=== PATIENT | female | born 1955 | race Caucasian/White ===

== ENCOUNTER 2022-03-12 11:53 | Observation (INO) | payer MEDICARE, BC, SELFPAY ==
[2022-03-12] VITALS (10 sets, daily range): BP systolic 133–158; BP diastolic 71–91; PULSE 72–92; RESP 14–18; TEMP 36.3–36.4; O2SAT 95–100; BMI 19.1; BMI 19.0
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
[2022-03-12] MEDS: LORazepam 2 MG/ML inj 0.5 MG IVP ×2 (13:12→15:39)
[2022-03-12 13:27] LABS: Basophils Absolute Auto 0.02 K/uL (0.00-0.30); Basophils Percent Auto 0.3 % (0.0-3.0); Eosinophils Absolute Auto 0.04 K/uL (0.00-0.50); Eosinophils Percent Auto 0.6 % (0.0-7.0); Hematocrit 37.5 % (33.0-51.0); Immature Granulocytes Abs Auto 0.02 K/uL (0.00-0.30); Lymphocytes Absolute Auto 1.67 K/uL (0.90-2.90); Lymphocytes Percent Auto 25.2 % (20-44); Mean Corpuscular HGB Conc 35 gm/dL (32-36); Mean Corpuscular Hemoglobin 30 pg (26-34); Mean Corpuscular Volume 86 fL (80-100); Monocytes Percent Auto 6.6 % (0.0-11.0); Neutrophils Absolute Auto 4.45 K/uL (1.7-7.0); Platelet Count* 359 K/uL (140-440); RDW Coefficient of Variation % 11.6 % (11.5-15.5); Red Blood Count 4.34 m/uL (4.00-5.20); White Blood Count* 6.64 K/uL (4.50-11.00)
[2022-03-12 13:35] LABS: Slide Review Reflex No
[2022-03-12 13:41] LABS: Albumin* 4.2 g/dL (3.3-5.0); Chloride* 87 mmol/L (96-114)
[2022-03-12 13:42] LABS: Potassium* 3.8 mmol/L (3.6-5.1)
[2022-03-12 13:44] LABS: Bilirubin Total* 0.3 mg/dL (0.1-1.5)
[2022-03-12 13:45] LABS: Alanine Aminotransferase* 13 U/L (4-35); Alkaline Phosphatase* 70 U/L (40-150); Aspartate Amino Transferase* 23 U/L (12-35); Blood Urea Nitrogen* 9 mg/dL (7-30); Carbon Dioxide* 25 mmol/L (20-32); Glucose* 96 mg/dL (60-115); Magnesium* 1.6 mg/dL (1.5-2.6)
[2022-03-12 13:58] LABS: C Reactive Protein* < 0.5 mg/dL (0.5-1.0); Sodium* 121 mmol/L (135-149); Troponin I* < 0.01 ng/mL (0.01-0.04)
--- NOTE | 2022-03-12 14:00 | ED.NURSE ---
Lab called with a critical Na 121. Informed Dr. Hartmann of this result.
[2022-03-12 14:02] LABS: Vitamin D 25 Hydroxy* 32 ng/mL (30-80)
[2022-03-12 14:28] LABS: Calcium* 8.7 mg/dL (8.4-10.6); Creatinine* 0.8 mg/dL (0.5-1.5); Est. Creatinine Clearance* 45.57; Estimated Glomerular Filt Rate 81 ml/min; Total Protein* 7.1 g/dL (6.0-8.3)
[2022-03-12] MEDS: 0.9 % SODIUM CHLORIDE 500 ML 500 ML IV (14:37)
[2022-03-12 15:22] LABS: Troponin I* < 0.01 ng/mL (0.01-0.04)
[2022-03-12] MEDS: KETOROLAC 15 MG/ML inj IVP (15:40)
[2022-03-12 15:56] LABS: SARS PCR* Negative SARS-CoV-2 (Negative)
[2022-03-12] MEDS: MAGNESIUM SULFATE 2 GM/50 ML PIGGYBACK IVPB (16:14)
[2022-03-12 17:02] LABS: Amylase* 113 U/L (18-89); Lipase* 123 U/L (23-300)
[2022-03-12 17:14] LABS: C Reactive Protein* < 0.5 mg/dL (0.5-1.0)
--- NOTE | 2022-03-12 17:20 | W.PC.EDHO ---
Primary Language: Preferred Language: Orientation Status: [X] Alert & Oriented [] Slight Confusion [] Known Dx Dementia Transfers By: [X] Assist of 1 [] Assist of 2 [] Lift Active Medications Discontinued Medications Generic Name Dose Route Start Last Admin Trade Name Dina PRN Reason Stop Dose Admin Acetaminophen 650 mg 03/12/22 14:15 03/12/22 14:50 Acetaminophen 325 Mg Tablet PO 03/12/22 14:16 Not Given ONCE ONE Sodium Chloride 500 mls @ 500 mls/hr 03/12/22 14:12 03/12/22 15:50 0.9 % Sodium Chloride 500 Ml IV 03/12/22 15:11 Infused .Q1H ONE Infusion Ketorolac Tromethamine 15 mg 03/12/22 15:14 03/12/22 15:40 Ketorolac 15 Mg/Ml Inj IVP 03/12/22 15:15 15 mg ONCE ONE Administration Lorazepam 0.5 mg 03/12/22 12:36 03/12/22 13:12 Lorazepam 2 Mg/Ml Inj IVP 03/12/22 12:37 0.5 mg ONCE ONE Administration Lorazepam 0.5 mg 03/12/22 14:51 03/12/22 15:39 Lorazepam 2 Mg/Ml Inj IVP 03/12/22 14:52 0.5 mg ONCE ONE Administration Magnesium Sulfate 2 gm 03/12/22 15:50 03/12/22 16:14 Magnesium Sulfate 2 Gm/50 Ml Piggyback IVPB 03/12/22 15:51 2 gm ONCE ONE Administration Description of Symptoms ED Triage Present Problem patient is having tightness in the chest that Description started yesterday and then went away returned today at 0400 feeling worse and the heart as if 2 x's the size. feeling lightheaded and nauseated. unable to relax as has pain in the lower abdomen and pelivic area was massaged by PT. was dx with UTI taking abo on Wednesday and Wednesday ED Triage Date of Onset of 03/12/22 Symptoms Female History Patient No Pain Pain Description [Lower Tightness Abdomen] Pain Intensity [Lower Abdomen] 8 Pain Intensity 6 Pain Scale Used [Lower Abdomen Numeric (1 - 10) ] Pain Scale Used Numeric (1 - 10) Oxygen Administration Pulse Oximetry 97 Pulse Oximetry 97 Pulse Oximetry 98 Oxygen Delivery Method Room Air Oxygen Delivery Method Room Air Oxygen Delivery Method Room Air Cardiac Monitoring EKG Method 12 Lead
--- NOTE | 2022-03-12 17:59 | ED.NURSE ---
Patient transfered to med/surg unit. Magnesium infusing at time of transfer.
--- NOTE | 2022-03-12 18:14 | CRLHL7_ITS ---
For Patients: As a result of the Century Cures Act, medical imaging exams and procedure reports are released immediately into your electronic medical record. You may view this report before your referring provider. If you have questions, please contact your health care provider. INDICATION: Chest pain TECHNIQUE: Single view chest. FINDINGS: The lungs are clear. The heart, mediastinum and pulmonary vessels are of normal size. There is no evidence of pleural disease. IMPRESSION: Negative chest. Dictated by Sherly Reyna MD @ 03/12/2022 6:48:00 PM (Electronically Signed)
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
[2022-03-12 18:56] LABS: Chloride* 91 mmol/L (96-114); Potassium* 3.7 mmol/L (3.6-5.1); Sodium* 126 mmol/L (135-149)
[2022-03-12 18:59] LABS: Blood Urea Nitrogen* 8 mg/dL (7-30); Calcium* 8.8 mg/dL (8.4-10.6); Carbon Dioxide* 27 mmol/L (20-32); Creatinine* 0.7 mg/dL (0.5-1.5); Est. Creatinine Clearance* 45.22; Estimated Glomerular Filt Rate 95 ml/min; Glucose* 119 mg/dL (60-115)
[2022-03-12] MEDS: IBUPROFEN 200 MG TABLET 400 MG PO (20:27)
[2022-03-12] MEDS: LORazepam 0.5 MG TABLET PO (20:29)
[2022-03-12] MEDS: diphenhydrAMINE 25 MG CAPSULE PO (20:30)
--- NOTE | 2022-03-12 21:59 | PC.NURSE ---
Pt came to floor with Chronic Abdominal pain in the LLQ. Controlled with Ice, Position, and Ibuprofen. No N/V. Pt IND in room. Pt has very strict home diet. Home meds in Bin. Allergic to Red dye. Refused Hospital Benadryl. Order changed to use home Benadryl.
[2022-03-13 03:00] VITALS: BP 118/73; PULSE 70; RESP 16; TEMP 36.4; O2SAT 100
[2022-03-13 06:36] LABS: Basophils Absolute Auto 0.03 K/uL (0.00-0.30); Basophils Percent Auto 0.5 % (0.0-3.0); Eosinophils Absolute Auto 0.11 K/uL (0.00-0.50); Eosinophils Percent Auto 1.7 % (0.0-7.0); Hematocrit 37.2 % (33.0-51.0); Hemoglobin* 12.9 gm/dL (12.0-16.0); Immature Granulocytes Abs Auto 0.04 K/uL (0.00-0.30); Lymphocytes Absolute Auto 2.19 K/uL (0.90-2.90); Lymphocytes Percent Auto 34.6 % (20-44); Mean Corpuscular HGB Conc 35 gm/dL (32-36); Mean Corpuscular Hemoglobin 30 pg (26-34); Mean Corpuscular Volume 87 fL (80-100); Monocytes Percent Auto 8.8 % (0.0-11.0); Neutrophils Percent Auto 53.8 % (42.0-72.0); Platelet Count* 384 K/uL (140-440); RDW Coefficient of Variation % 11.9 % (11.5-15.5); Red Blood Count 4.28 m/uL (4.00-5.20); White Blood Count* 6.33 K/uL (4.50-11.00)
[2022-03-13 06:38] LABS: Slide Review Reflex No
--- NOTE | 2022-03-13 06:51 | PC.NURSE ---
Alert and oriented x4. Vitals stable and on RA. Denies pain. Calm and pleasant. No lab results back yet. No concerns overnight
[2022-03-13 07:00] VITALS: BP 152/100; PULSE 93; RESP 14; TEMP 36.6; O2SAT 100
[2022-03-13 07:00] LABS: Chloride* 96 mmol/L (96-114); Sodium* 129 mmol/L (135-149)
[2022-03-13 07:03] LABS: Blood Urea Nitrogen* 7 mg/dL (7-30); Carbon Dioxide* 26 mmol/L (20-32); Creatinine* 0.8 mg/dL (0.5-1.5); Est. Creatinine Clearance* 45.22; Estimated Glomerular Filt Rate 81 ml/min
[2022-03-13 07:04] LABS: Calcium* 8.6 mg/dL (8.4-10.6); Glucose* 98 mg/dL (60-115); Magnesium* 2.1 mg/dL (1.5-2.6)
--- NOTE | 2022-03-13 07:44 | P.DS_ITS ---
DS: Providers Provider Date Seen: 03/13/22 Date of admission: 03/12/22 16:50 Primary care physician: Not a Local Provider Admitting Clinician: Milton Anderson MD Attending Physician on discharge: Alejandrina Rose MD Date of Discharge: 03/13/22 DS: Diagnosis Discharge Diagnosis (1) Hyponatremia: Status: Acute (2) Anxiety: Status: Chronic DS: Summary Hospital Course Hospital Course: 66-year-old female, presented to the emergency room on 03/12 for chest pain. Her chest pain entirely resolved throughout stay; she was found to have hyponatremia with a sodium of 121 in the emergency room. During hospitalization, her sodium came up to 129 and she felt markedly improved, back to baseline. She endorses having anxiety about trying to drink sufficient water throughout the day for her histamine predominance, is amenable to decreasing fluid intake to prevent a recurrence of hyponatremia. She will continue follow-up as an outpatient with Psychiatry for her anxiety; has been looking for new PCP since her PCP has retired, would like to see Dr. Monik Cornejo at the [facility]. Status at Discharge Functional status at discharge: independent ambulation Overall status at discharge: patient is back to baseline Time Spent with Patient Time attestation: Total time spent providing and/or coordinating discharge services: Time spent: Greater than 30 minutes Specific discharge activities: Education regarding diagnoses, discharge appointments, and coordination of care Exam Narrative: Exam Narrative: GEN: Alert and oriented, answering questions appropriately HEENT: Normal external ears, EOMIs bilaterally, no scleral icterus CV: RRR, No concerning murmurs, rubs, or gallops R: LCTA bilaterally without concerning wheezing, rales, or rhonchi Ext: wwp, no concerning edema Skin: No concerning skin lesions or rashes on exposed skin Neuro: Nonfocal Psych: Appropriate Const: Vital Signs, click to edit/add: Vital Signs - 24 hr 03/12/22 11:58 03/12/22 12:58 03/12/22 14:45 Temperature 97.6 F Pulse Rate [Left P ulse Oximeter] 92 72 82 Pulse Rate [Left R adial] Respiratory Rate 18 14 14 Blood Pressure [Le ft Arm] Blood Pressure [Le ft Upper Arm] 158/91 H 157/82 H 155/81 H Pulse Oximetry 98 97 97 Oxygen Delivery Me thod Room Air Room Air Room Air 03/12/22 18:06 03/12/22 18:18 03/12/22 18:45 Temperature 97.4 F L 97.4 F L Pulse Rate [Left P ulse Oximeter] Pulse Rate [Left R adial] 82 82 Respiratory Rate 16 16 16 Blood Pressure [Le ft Arm] 152/89 H 152/89 H Blood Pressure [Le ft Upper Arm] Pulse Oximetry 100 100 100 Oxygen Delivery Nh thod Room Air Room Air Room Air 03/12/22 18:51 03/12/22 18:52 03/12/22 20:27 Temperature 97.4 F L 97.4 F L 97.4 F L Pulse Rate [Left P ulse Oximeter] Pulse Rate [Left R adial] Respiratory Rate 16 Blood Pressure [Le ft Arm] 152/89 H Blood Pressure [Le ft Upper Arm] Pulse Oximetry 100 Oxygen Delivery Nh thod Room Air 03/12/22 23:00 03/12/22 23:00 03/13/22 03:00 Temperature 97.4 F L 97.6 F Pulse Rate [Left P ulse Oximeter] Pulse Rate [Left R adial] 70 Respiratory Rate 16 16 16 Blood Pressure [Le ft Arm] 133/71 118/73 Blood Pressure [Le ft Upper Arm] Pulse Oximetry 95 100 Oxygen Delivery Nh thod Room Air Room Air DS: Data Data Completed and Pending Labs on day of discharge: Labs from last 24 hours 03/13/22 03/13/22 03/13/22 06:14 06:14 06:14 WBC 6.33 RBC 4.28 Hgb 12.9 Hct 37.2 MCV 87 MCH 30 MCHC 35 RDW Coeff of [place] 11.9 Plt Count 384 Neut % (Auto) 53.8 Lymph % (Auto) 34.6 [place] % (Auto) 8.8 Eos % (Auto) 1.7 Baso % (Auto) 0.5 Neut # (Auto) 3.40 Lymph # (Auto) 2.19 [place] # (Auto) 0.60 Eos # (Auto) 0.11 Baso # (Auto) 0.03 Abs Immat Gran (auto) 0.04 Sodium 129 L Potassium 4.0 Chloride 96 Carbon Dioxide 26 BUN 7 Creatinine 0.8 Estimated Creat Clear 45.22 Estimated GFR 81 Glucose 98 Calcium 8.6 Magnesium 2.1 Total Bilirubin AST ALT Alkaline Phosphatase Troponin I C-Reactive Protein Total Protein Albumin Amylase Lipase 25-OH Vitamin D Total TSH 1.260 SARS-CoV-2 (PCR) 03/12/22 03/12/22 03/12/22 18:32 14:40 14:40 WBC RBC Hgb Hct MCV MCH MCHC RDW Coeff of [place] Plt Count Neut % (Auto) Lymph % (Auto) [place] % (Auto) Eos % (Auto) Baso % (Auto) Neut # (Auto) Lymph # (Auto) [place] # (Auto) Eos # (Auto) Baso # (Auto) Abs Immat Gran (auto) Sodium 126 L Potassium 3.7 Chloride 91 L Carbon Dioxide 27 BUN 8 Creatinine 0.7 Estimated Creat Clear 45.22 Estimated GFR 95 Glucose 119 H Calcium 8.8 Magnesium Total Bilirubin AST ALT Alkaline Phosphatase Troponin I < 0.01 L C-Reactive Protein < 0.5 L Total Protein Albumin Amylase 113 H Lipase 123 25-OH Vitamin D Total TSH SARS-CoV-2 (PCR) Negative SARS-CoV-2 03/12/22 03/12/22 03/12/22 13:10 13:10 13:10 WBC 6.64 RBC 4.34 Hgb 13.0 Hct 37.5 MCV 86 MCH 30 MCHC 35 RDW Coeff of [place] 11.6 Plt Count 359 Neut % (Auto) 67.0 Lymph % (Auto) 25.2 [place] % (Auto) 6.6 Eos % (Auto) 0.6 Baso % (Auto) 0.3 Neut # (Auto) 4.45 Lymph # (Auto) 1.67 [place] # (Auto) 0.40 Eos # (Auto) 0.04 Baso # (Auto) 0.02 Abs Immat Gran (auto) 0.02 Sodium 121 L* Potassium 3.8 Chloride 87 L Carbon Dioxide 25 BUN 9 Creatinine 0.8 Estimated Creat Clear 45.57 Estimated GFR 81 Glucose 96 Calcium 8.7 Magnesium 1.6 Total Bilirubin 0.3 AST 23 ALT 13 Alkaline Phosphatase 70 Troponin I < 0.01 L C-Reactive Protein < 0.5 L Total Protein 7.1 Albumin 4.2 Amylase Lipase 25-OH Vitamin D Total 32 TSH SARS-CoV-2 (PCR) Discharge Plan Discharge Disposition: Home, Self-Care Date of Admission: 03/12/22 16:50 Attending Provider on Discharge: Alejandrina Rose Primary Care Provider: Provider,Not a Local Condition: Improved Anticipated Discharge Date/Time: 03/13/22 07:30 Discharge Medications: Continued diphenhydramine HCl [Allergy (diphenhydramine)] 25 mg tablet 25 mg PO QID PRN lorazepam 0.5 mg tablet 0.5 mg PO TID PRN Label Comments: TAKE ONE TABLET BY MOUTH (0.5MG) BY MOUTH 3 TIMES DAILY IF NEEDED FOR ANXIETY. levothyroxine 112 mcg tablet 112 mcg PO DAILY Label Comments: TAKE 1 TABLET (112 MCG) BY MOUTH BEFORE BREAKFAST. levocetirizine [24HR Allergy Relief] 5 mg tablet 5 mg PO TID cephalexin 500 mg tablet 500 mg PO BID Label Comments: TAKE 1 TABLET BY MOUTH IN THE MORNING AND 1 TABLET IN THE EVENING FOR 7 DAYS. ibuprofen [Advil] 200 mg tablet 400 mg PO Q6-8H PRN Discharge Orders: Discharge Order (Routine); Ordered 03/13/22 Ordered By: Alejandrina Rose Patient Education: Hyponatremia (DC) Activity Restrictions/Additional Instructions: Limit your water intake to 1800mL per day. No need to limit salt in your diet. See Dr. Cornejo for Primary Care. Activity Level: No Restrictions Discharge Diet: Regular Follow Up Appointments: Enrrique Haas MD [Staff Physician] - Provider,Not a Local [Primary Care Provider] - (Please make an establish care appt with Dr. Cornejo next week.) Forms: [employer] Info Instructions
[2022-03-13 08:24] LABS: Troponin I* < 0.01 ng/mL (0.01-0.04)
[2022-03-13] MEDS: LEVOTHYROXINE 112 MCG TABLET PO (09:06)
[2022-03-13] MEDS: LORazepam 0.5 MG TABLET PO (09:06)
[2022-03-13 09:07] VITALS: BP 118/73; PULSE 70; RESP 16; TEMP 36.4
[2022-03-13] MEDS: diphenhydrAMINE 25 MG CAPSULE PO (09:08)
[2022-03-13] MEDS: IBUPROFEN 200 MG TABLET 400 MG PO (09:11)
[2022-03-13 10:51] VITALS: PULSE 70
--- NOTE | 2022-03-13 10:52 | PC.NURSE ---
Discharge: Patient pleasant, cooperative, and anxious. Patient anxious about not receiving meds at her usual time she takes them at home. Patient is vitally stable, lungs clear, BS WNL, IV removed catheter intact. Patient is independent in room, and did report some pelvic pain, rating it 3/10, motrin given. Patient signed belongings sheet and discharge form. Patient's home meds returned. Patient left the floor by foot at 0949 with her belongings.
== END 2022-03-13 09:49 | disposition home or self-care (01) ==
LOC: ED 16:50 → MEDSURG 16:51
PROVIDERS: Family Medicine; Admitting Provider Internal Medicine; Emergency Provider Family Medicine; PCP Internal Medicine; Visit Provider Internal Medicine
DX: E87.1 Hypo-osmolality and hyponatremia (principal); F41.9 Anxiety disorder, unspecified; E83.42 Hypomagnesemia; R10.2 Pelvic and perineal pain; R74.8 Abnormal levels of other serum enzymes; G89.29 Other chronic pain; D89.40 Mast cell activation, unspecified; E03.9 Hypothyroidism, unspecified; J30.2 Other seasonal allergic rhinitis; R53.83 Other fatigue; M99.05 Segmental and somatic dysfunction of pelvic region; Z87.19 Personal history of other diseases of the digestive system; Z62.819 Personal history of unspecified abuse in childhood; Z87.898 Personal history of other specified conditions
CPT/HCPCS: 36415; 71045; 80048; 80053; 81001; 82150; 82306; 83690; 83735; 84295; 84443; 84484; 85025; 86140; 87635; 93005; 96361; 96374; 96375; 96376; 99285; A9270; G0378; G0379; J1885; J2060; J3475; J7120

== ENCOUNTER 2022-04-21 09:57 | Outpatient (RCR) | payer MEDICARE, BC, SELFPAY | END 2022-11-17 16:19 | disposition home or self-care (01) | PROVIDERS: PCP Internal Medicine; Visit Provider Physician Assistant | DX: H81.10 Benign paroxysmal vertigo, unspecified ear (principal); Z51.89 Encounter for other specified aftercare | CPT/HCPCS: 97110; 97162 ==

== ENCOUNTER 2022-06-16 09:00 | Outpatient (RCR) | payer MEDICARE, BC, SELFPAY | END 2022-09-02 10:00 | disposition home or self-care (01) | PROVIDERS: PCP Family Medicine; Visit Provider Nurse Practitioner Adult Health | DX: K58.9 Irritable bowel syndrome, unspecified (principal); Z51.89 Encounter for other specified aftercare | CPT/HCPCS: 97110; 97112; 97140; 97162; 97535 ==

== ENCOUNTER 2022-07-02 11:09 | Emergency (ER) | payer MEDICARE, BC, SELFPAY ==
[2022-07-02 11:19] VITALS: BP 156/92; PULSE 90; RESP 18; TEMP 37.2; O2SAT 97; BMI 19.6
--- NOTE | 2022-07-02 11:41 | CRLHL7_ITS ---
For Patients: As a result of the Century Cures Act, medical imaging exams and procedure reports are released immediately into your electronic medical record. You may view this report before your referring provider. If you have questions, please contact your health care provider. INDICATION: Headache, high blood pressure TECHNIQUE: Noncontrast axial CT of the head. Coronal and sagittal reformats. Bone and soft tissue algorithms. COMPARISON: No relevant comparison studies available at this institution. FINDINGS: The ventricles and cortical sulci are unremarkable. No midline shift or mass effect. No acute intracranial hemorrhage or extra-axial fluid collection. [place]-white matter differentiation is grossly maintained. White matter attenuation is within normal limits. Intracranial vessels are unremarkable for technique. Midline structures are unremarkable. Bony calvarium appears grossly intact. Paranasal sinuses and mastoid air cells are clear. Orbits are unremarkable. IMPRESSION: No radiographic evidence of acute intracranial abnormality. Please note that all CT scans at this facility use dose modulation, iterative reconstruction, and/or weight-based dosing when appropriate to reduce radiation dose to as low as reasonably achievable. Dictated by Inga Dunn MD @ 07/02/2022 12:31:15 PM (Electronically Signed)
[2022-07-02 12:19] LABS: Basophils Absolute Auto 0.02 K/uL (0.00-0.30); Basophils Percent Auto 0.3 % (0.0-3.0); Eosinophils Absolute Auto 0.06 K/uL (0.00-0.50); Eosinophils Percent Auto 0.8 % (0.0-7.0); Hematocrit 39.1 % (33.0-51.0); Hemoglobin* 13.2 gm/dL (12.0-16.0); Immature Granulocytes Abs Auto 0.01 K/uL (0.00-0.30); Immature Granulocytes Pct Auto 0.1 %; Lymphocytes Absolute Auto 2.45 K/uL (0.90-2.90); Lymphocytes Percent Auto 30.7 % (20-44); Mean Corpuscular HGB Conc 34 gm/dL (32-36); Mean Corpuscular Hemoglobin 31 pg (26-34); Mean Corpuscular Volume 90 fL (80-100); Monocytes Percent Auto 5.4 % (0.0-11.0); Neutrophils Absolute Auto 5.02 K/uL (1.7-7.0); Neutrophils Percent Auto 62.7 % (42.0-72.0); Platelet Count* 358 K/uL (140-440); RDW Coefficient of Variation % 11.9 % (11.5-15.5); Red Blood Count 4.33 m/uL (4.00-5.20); White Blood Count* 7.99 K/uL (4.50-11.00)
[2022-07-02 12:20] LABS: Slide Review Reflex No
[2022-07-02 12:34] LABS: Chloride* 100 mmol/L (96-114); Potassium* 4.4 mmol/L (3.6-5.1); Sodium* 134 mmol/L (135-149)
--- NOTE | 2022-07-02 12:35 | ED.GENADULT ---
HPI - General Adult General Chief complaint: High Blood Pressure Stated complaint: high blood pressure Time Seen by Provider: 07/02/22 11:28 History of Present Illness HPI narrative: Pt is a 66 year old woman who was diagnosed yesterday at the [facility] clinic with hypertension. Her blood pressure was mildly elevated at approx 160/90. Her primary doctor asked her to get a blood pressure cuff and follow her blood pressure for the next month. Pt has been upset about this diagnosis and stopped to see the triage nurse at the clinic today. Blood pressure at that evaluation was 190/80. Pt has a headache which is mild but diffuse and has been present off and on for the past several weeks. The headache is diffuse and not associated with any neurological defects. No photophobia. No chest pain or shortness of breath. With the history of headache and hypertension, the pt was sent over for further evaluation. Related Data Home Medications Medication Instructions Recorded Confirmed diphenhydramine HCl 25 mg tablet 25 mg PO QID PRN 03/12/22 03/26/22 (Allergy (diphenhydramine)) levothyroxine 112 mcg tablet 112 mcg PO DAILY 03/12/22 03/26/22 lorazepam 0.5 mg tablet 0.5 mg PO TID PRN 03/12/22 03/26/22 Histamine Rn Diabetes PO 03/26/22 03/26/22 ibuprofen 200 mg tablet (Advil) 400 mg PO .Q4-QH PRN 03/26/22 03/26/22 levocetirizine 5 mg tablet (24HR 5 mg PO BID 03/26/22 03/26/22 Allergy Relief) melatonin 5 mg capsule 5 mg PO .hs PRN 03/26/22 03/26/22 Allergies Allergy/AdvReac Type Severity Reaction Status Date / Time red dye Allergy Verified 03/26/22 11:21 gelatin AdvReac Mild GI upset- Verified 03/26/22 11:21 gelatin capsules Review of Systems Status of ROS: Reports: 10 or more systems reviewed and unremarkable except as noted in History and below [facility] Medical History (Updated 07/02/22 @ 13:16 by Milton Anderson MD) Anxiety Chronic pain Depression Functional diarrhea History of Clostridioides difficile infection (2012) History of migraine Hypothyroidism Pelvic floor dysfunction Seasonal allergies Surgical History (Updated 04/03/22 @ 13:53 by Ilda Schmitt) History of carpal tunnel surgery of left wrist (04/23/09) History of hernia repair (06/07/18) History of vaginal hysterectomy (05/2005) Family History (Updated 04/03/22 @ 14:03 by Ilda Schmitt) Sister Asthma Social History Highest level of school completed/degree received: Bachelor's degree Smoking Status: Never smoker Do you use any of these nicotine containing products: None Second hand tobacco smoke exposure: No How often do you have a drink containing alcohol: never How often do you have six or more drinks on one occasion: Never AUDIT-C Alcohol total score: 0 Non-prescribed substance use: denies use Caffeine: No service: No Exam Narrative: Exam Narrative: EXAM GENERAL: Patient appears comfortable and well. EYES: No scleral icterus. THYROID: no thyroid nodules or thyromegaly. LYMPH: No supraclavicular or cervical lymphadenopathy. SKIN: Visible skin seen during exam normal or with benign process only. EXT: No dependent lower extremity pedal edema. HEART: Regular rate and rhythm with no murmurs, rubs, or gallops. LUNGS: Clear to auscultation bilaterally with no crackles or wheezes. ABD: Soft, non tender, non distended. PSYCH: Good eye contact, speech is not pressured. Const: Vital Signs, click to edit/add: Vital Signs - 24 hr 07/02/22 11:19 Temperature 99.0 F Pulse Rate [Right Pulse Oximeter] 90 Respiratory Rate 18 Blood Pressure [Ri ght Upper Arm] 156/92 H Pulse Oximetry 97 Oxygen Delivery Me thod Room Air Course Course Hospital Course: Pt seen and examined. BP much more reasonable. Ordered CBC, BMP, EKG, Head CT. Reevaluation(s) Reevaluation #1: Pt resting comfortably. CT upon my review negative. EKG upon my review nsr no acute findings. CBC, BMP reassuring upon my review. Time: 13:12 Vital Signs Vital signs: Initial Vital Signs Temperature 99.0 F 07/02/22 11:19 Temperature Source Temporal Artery Scan 07/02/22 11:19 Pulse Rate 90 07/02/22 11:19 Respiratory Rate 18 07/02/22 11:19 Blood Pressure 156/92 H 07/02/22 11:19 Blood Pressure Mean 113 07/02/22 11:19 Blood Pressure Position Sitting 07/02/22 11:19 Pulse Oximetry 97 07/02/22 11:19 Oxygen Delivery Method 07/02/22 11:19 Vital Signs Temperature 99.0 F 07/02/22 11:19 Pulse Rate 90 07/02/22 11:19 Respiratory Rate 18 07/02/22 11:19 Blood Pressure 156/92 H 07/02/22 11:19 Pulse Oximetry 97 07/02/22 11:19 Oxygen Delivery Method 07/02/22 11:19 Temperature 99.0 F 07/02/22 11:19 Pulse Rate 90 07/02/22 11:19 Respiratory Rate 18 07/02/22 11:19 Blood Pressure 156/92 H 07/02/22 11:19 Pulse Oximetry 97 07/02/22 11:19 Oxygen Delivery Method 07/02/22 11:19 Medical Decision Making MDM Narrative Medical decision making narrative: Pt presents with mildly elevated blood pressure and headache. Work up including cbc, bmp, ekg head ct negative. I would agree with her primary doctor that monitoring home readings would be the next step and that is the advice that I have given her. Differential Diagnosis Differential Diagnosis: Hypertension, Cerebral Bleed, Electrolyte abnormalities, Lab Data Labs: Lab Results 07/02/22 07/02/22 Range/Units 12:10 12:10 WBC 7.99 (4.50-11.00) K/uL RBC 4.33 (4.00-5.20) m/uL Hgb 13.2 (12.0-16.0) gm/dL Hct 39.1 (33.0-51.0) % MCV 90 (80-100) fL MCH 31 (26-34) pg MCHC 34 (32-36) gm/dL RDW Coeff of [place]aman 11.9 (11.5-15.5) % Plt Count 358 (140-440) K/uL Neut % (Auto) 62.7 (42.0-72.0) % Lymph % (Auto) 30.7 (20-44) % [place] % (Auto) 5.4 (0.0-11.0) % Eos % (Auto) 0.8 (0.0-7.0) % Baso % (Auto) 0.3 (0.0-3.0) % Neut # (Auto) 5.02 (1.7-7.0) K/uL Lymph # (Auto) 2.45 (0.90-2.90) K/uL [place] # (Auto) 0.40 (0.00-0.90) K/UL Eos # (Auto) 0.06 (0.00-0.50) K/uL Baso # (Auto) 0.02 (0.00-0.30) K/uL Abs Immat Gran (auto) 0.01 (0.00-0.30) K/uL Imm/Tot Granulo (auto) 0.1 % Sodium 134 L (135-149) mmol/L Potassium 4.4 (3.6-5.1) mmol/L Chloride 100 (96-114) mmol/L Carbon Dioxide 28 (20-32) mmol/L BUN 13 (7-30) mg/dL Creatinine 0.9 (0.5-1.5) mg/dL Estimated Creat Clear 46.76 Estimated GFR 71 ml/min Glucose 104 (60-115) mg/dL Calcium 9.3 (8.4-10.6) mg/dL Discharge Plan Discharge Clinical Impression: Hypertension Condition: Stable Instructions: Hypertension (ED) Additional Instructions: Continue current medications and follow blood pressure at home as discussed Activity Level: No Restrictions Discharge Diet: Regular Prescriptions: No Action melatonin 5 mg capsule 5 mg PO .hs PRN Histamine Rn Diabetes PO diphenhydramine HCl [Allergy (diphenhydramine)] 25 mg tablet 25 mg PO QID PRN lorazepam 0.5 mg tablet 0.5 mg PO TID PRN Label Comments: TAKE ONE TABLET BY MOUTH (0.5MG) BY MOUTH 3 TIMES DAILY IF NEEDED FOR ANXIETY. levothyroxine 112 mcg tablet 112 mcg PO DAILY Label Comments: TAKE 1 TABLET (112 MCG) BY MOUTH BEFORE BREAKFAST. ibuprofen [Advil] 200 mg tablet 400 mg PO .Q4-QH PRN levocetirizine [24HR Allergy Relief] 5 mg tablet 5 mg PO BID Follow Up/Referrals: Gunjan Cornejo MD [Primary Care Provider] - Stand Alone [facility] Info Instructions
[2022-07-02 12:37] LABS: Blood Urea Nitrogen* 13 mg/dL (7-30); Calcium* 9.3 mg/dL (8.4-10.6); Carbon Dioxide* 28 mmol/L (20-32); Creatinine* 0.9 mg/dL (0.5-1.5); Est. Creatinine Clearance* 46.76; Estimated Glomerular Filt Rate 71 ml/min; Glucose* 104 mg/dL (60-115)
[2022-07-02 13:47] VITALS: BP 161/71
== END 2022-07-02 13:30 | disposition home or self-care (01) ==
PROVIDERS: Emergency Provider Internal Medicine; PCP Internal Medicine
DX: I10 Essential (primary) hypertension (principal)
CPT/HCPCS: 36415; 70450; 80048; 85025; 93005; 99283; 99284; 99285

== ENCOUNTER 2022-07-13 14:47 | Observation (INO) | payer MEDICARE, BC, SELFPAY ==
[2022-07-13] VITALS (7 sets, daily range): BP systolic 166–179; BP diastolic 92–101; PULSE 65–97; RESP 14–18; TEMP 35.6–36.9; O2SAT 96–99; BMI 19.6
--- NOTE | 2022-07-13 15:11 | ED.NAVMDI ---
HPI - Nausea/Vomiting/Diarrhea General Time Seen by Provider: 15:11 Date Seen: 07/13/22 Chief complaint: Diarrhea Stated complaint: Diarrhea for 5 days Time Seen by Provider: 07/13/22 15:11 Source: patient, RN notes reviewed and old records reviewed Mode of arrival: ambulatory Limitations: no limitations History of Present Illness HPI Narrative: Blanquita is a very pleasant 66-year-old female with a history of C diff in 2013, pelvic floor dysfunction, anxiety and hyponatremia who comes to the emergency room with her for 5 days of ongoing diarrhea. Patient notes that she has not had any nausea or vomiting with this but has not had a lot of p.o. intake. She did have some rice prior to coming here to the emergency room. She has not had fever or chills. On further discussion she does have a some left lower quadrant pain but states this is likely secondary to a nerve that often causes her discomfort from pelvic floor dysfunction when she is ill. Patient denies recent antibiotic use, recent travel, being involved in the care of young children or the elderly, ingestion of any raw or uncooked meats. No other ill members in the household at this time. Patient does feel a little lightheaded when she is up and walking. Feels like she is dehydrated. Associated nausea: Yes Related Data Home Medications Medication Instructions Recorded Confirmed diphenhydramine HCl 25 mg tablet 25 mg PO QID PRN 03/12/22 07/13/22 (Allergy (diphenhydramine)) levothyroxine 112 mcg tablet 112 mcg PO DAILY 03/12/22 07/13/22 lorazepam 0.5 mg tablet 0.5 mg PO TID PRN 03/12/22 07/13/22 Histamine Cutter Gas PO 03/26/22 03/26/22 ibuprofen 200 mg tablet (Advil) 400 mg PO .Q4-QH PRN 03/26/22 07/13/22 levocetirizine 5 mg tablet (24HR 5 mg PO BID 03/26/22 07/13/22 Allergy Relief) melatonin 5 mg capsule 5 mg PO .hs PRN 03/26/22 07/13/22 amlodipine 5 mg tablet 5 mg PO DAILY 07/13/22 07/13/22 Allergies Allergy/AdvReac Type Severity Reaction Status Date / Time red dye Allergy Verified 07/13/22 17:18 gelatin AdvReac Mild GI upset- Verified 07/13/22 17:18 gelatin capsules acetaminophen [From Tylenol] AdvReac Unknown Verified 07/13/22 17:18 Review of Systems Status of ROS: Reports: 10 or more systems reviewed and unremarkable except as noted in History and below Const: Denies: fever or chills Eyes: Denies: change in vision ENMT: Denies: throat pain, difficulty swallowing or hoarseness Cardio: Reports: lightheadedness; Denies: chest pain, palpitations, swelling of feet/ankles or shortness of breath with exertion Resp: Denies: shortness of breath or cough GI: Reports: abdominal pain (Left lower quadrant), nausea and diarrhea; Denies: vomiting, bloating, difficulty swallowing or blood in stool : Denies: painful urination or urinary frequency Musculo: Denies: back pain Neuro: Denies: headache or numbness in extremities Psych: Reports: anxiety PFSH PFSH Medical History Anxiety Chronic pain Depression Functional diarrhea History of Clostridioides difficile infection (2012) History of migraine Hypothyroidism Pelvic floor dysfunction Seasonal allergies Surgical History History of carpal tunnel surgery of left wrist (04/23/09) History of hernia repair (06/07/18) History of vaginal hysterectomy (05/2005) Family History Sister Asthma Social History Highest level of school completed/degree received: Bachelor's degree Smoking Status: Never smoker Do you use any of these nicotine containing products: None Second hand tobacco smoke exposure: No How often do you have a drink containing alcohol: never How often do you have six or more drinks on one occasion: Never AUDIT-C Alcohol total score: 0 Non-prescribed substance use: denies use Caffeine: No service: No Exam Narrative: Exam Narrative: Blanquita is alert and oriented. Somewhat anxious mildly pressured speech. Eyes are clear. Oral cavity with moist mucous membranes but no excessive saliva. Neck is supple without lymphadenopathy. Heart with a tachycardic rate but normal rhythm. Lungs are clear in all lung [place] abdomen is soft nontender but my palpation does increase her need to have a bowel movement. Lower extremities without edema. Const: Vital Signs, click to edit/add: Vital Signs - 24 hr 07/13/22 14:58 07/13/22 15:30 07/13/22 16:00 Temperature 96.0 F L Pulse Rate [Pulse Oximeter] 97 78 78 Respiratory Rate 18 14 18 Blood Pressure [Ri ght Upper Arm] 179/101 H 166/99 H 167/92 H Pulse Oximetry 98 99 98 Oxygen Delivery Me thod Room Air Room Air Room Air 07/13/22 17:00 Temperature Pulse Rate [Pulse Oximeter] 80 Respiratory Rate 16 Blood Pressure [Ri ght Upper Arm] 169/94 H Pulse Oximetry 98 Oxygen Delivery Me thod Room Air Documenting provider has reviewed patient's vital signs: yes Course Course Hospital Course: Will place IV and give 1 L normal saline. Will check electrolytes as well as stool culture and C diff. Reevaluation(s) Reevaluation #1: Patient does not think she is feeling better. She notes that she has not had diarrhea in quite some time. We are currently waiting on a C diff. Unfortunately her sodium returns at 0118 and therefore I do suggest admission. She has received 1 L of normal saline. Vital Signs Vital signs: Initial Vital Signs Temperature 96.0 F L 07/13/22 14:58 Temperature Source Temporal Artery Scan 07/13/22 14:58 Pulse Rate 97 07/13/22 14:58 Respiratory Rate 18 07/13/22 14:58 Blood Pressure 179/101 H 07/13/22 14:58 Blood Pressure Mean 127 07/13/22 14:58 Pulse Oximetry 98 07/13/22 14:58 Oxygen Delivery Method 07/13/22 14:58 Vital Signs Temperature 96.0 F L 07/13/22 14:58 Pulse Rate 97 07/13/22 14:58 Respiratory Rate 18 07/13/22 14:58 Blood Pressure 179/101 H 07/13/22 14:58 Pulse Oximetry 98 07/13/22 14:58 Oxygen Delivery Method 07/13/22 14:58 Temperature 96.0 F L 07/13/22 14:58 Pulse Rate 80 07/13/22 17:00 Respiratory Rate 16 07/13/22 17:00 Blood Pressure 169/94 H 07/13/22 17:00 Pulse Oximetry 98 07/13/22 17:00 Oxygen Delivery Method 07/13/22 17:00 MDM - Nausea/Vomiting/Diarrhea MDM Narrative Medical decision making narrative: 1. Hyponatremia-likely secondary to diarrhea with pure water oral intake. 1 L of normal saline given at this time. 2. Diarrhea-CRP normal. Abdominal exam without significant tenderness. Patient notes that she has chronic pain left lower quadrant secondary from pelvic floor dysfunction and a nerve issue. Please see my note from February 2022 regarding similar circumstance. Patient does request pain medication and she may receive Toradol 15 mg IV. C diff negative. Stool cultures currently pending 3. Disposition- admit under the care of Dr. Avalos, hospitalist. Medical Records Attestation: I reviewed the patient's medical records. Lab Data Attestation: I reviewed the patient's lab results. Labs: Lab Results 07/13/22 07/13/22 07/13/22 Range/Units 16:00 16:00 16:00 WBC 7.18 (4.50-11.00) K/uL RBC 4.24 (4.00-5.20) m/uL Hgb 12.9 (12.0-16.0) gm/dL Hct 35.8 (33.0-51.0) % MCV 84 (80-100) fL MCH 30 (26-34) pg MCHC 36 (32-36) gm/dL RDW Coeff of [place] 11.1 L (11.5-15.5) % Plt Count 295 (140-440) K/uL Neut % (Auto) 58.5 (42.0-72.0) % Lymph % (Auto) 31.3 (20-44) % [place] % (Auto) 8.9 (0.0-11.0) % Eos % (Auto) 0.7 (0.0-7.0) % Baso % (Auto) 0.3 (0.0-3.0) % Neut # (Auto) 4.20 (1.7-7.0) K/uL Lymph # (Auto) 2.25 (0.90-2.90) K/uL [place] # (Auto) 0.60 (0.00-0.90) K/UL Eos # (Auto) 0.05 (0.00-0.50) K/uL Baso # (Auto) 0.02 (0.00-0.30) K/uL Sodium 118 L* (135-149) mmol/L Potassium 4.0 (3.6-5.1) mmol/L Chloride 85 L (96-114) mmol/L Carbon Dioxide 27 (20-32) mmol/L BUN 6 L (7-30) mg/dL Creatinine 0.7 (0.5-1.5) mg/dL Estimated Creat Clear 46.76 Estimated GFR 95 ml/min Glucose 103 (60-115) mg/dL Calcium 8.7 (8.4-10.6) mg/dL Magnesium 1.5 (1.5-2.6) mg/dL Total Bilirubin 0.5 (0.1-1.5) mg/dL AST 29 (12-35) U/L ALT 17 (4-35) U/L Alkaline Phosphatase 65 (40-150) U/L C-Reactive Protein < 0.5 L (0.5-1.0) mg/dL Total Protein 7.1 (6.0-8.3) g/dL Albumin 4.5 (3.3-5.0) g/dL Urine Color (Yellow) Urine Appearance (Clear) Urine pH (5.0-8.5) Ur Specific [place] (1.000-1.030) Urine Protein (Negative) Urine Glucose (UA) (Negative) Urine Ketones (Negative) Urine Blood (Negative) Urine Nitrite (Negative) Urine Bilirubin (Negative) Urine Urobilinogen (0.2-1.0) Ur Leukocyte Esterase (Negative) Urine RBC (0-2) Urine WBC (0-5) Ur Squamous Epith Cells (None-Few) Urine Bacteria (None) Stl C.difficile Tox PCR Negative (Negative) St C. diff Tox Epid 027 PRESUMPTIVE NEGATIVE (Negative) SARS-CoV-2 (PCR) Negative SARS-CoV-2 (Negative) Influenza Type A (PCR) Negative PCR FLU A (Negative) Influenza Type B (PCR) Negative PCR FLU B (Negative) 07/13/22 Range/Units 17:12 WBC (4.50-11.00) K/uL RBC (4.00-5.20) m/uL Hgb (12.0-16.0) gm/dL Hct (33.0-51.0) % MCV (80-100) fL MCH (26-34) pg MCHC (32-36) gm/dL RDW Coeff of [place] (11.5-15.5) % Plt Count (140-440) K/uL Neut % (Auto) (42.0-72.0) % Lymph % (Auto) (20-44) % [place] % (Auto) (0.0-11.0) % Eos % (Auto) (0.0-7.0) % Baso % (Auto) (0.0-3.0) % Neut # (Auto) (1.7-7.0) K/uL Lymph # (Auto) (0.90-2.90) K/uL [place] # (Auto) (0.00-0.90) K/UL Eos # (Auto) (0.00-0.50) K/uL Baso # (Auto) (0.00-0.30) K/uL Sodium (135-149) mmol/L Potassium (3.6-5.1) mmol/L Chloride (96-114) mmol/L Carbon Dioxide (20-32) mmol/L BUN (7-30) mg/dL Creatinine (0.5-1.5) mg/dL Estimated Creat Clear Estimated GFR ml/min Glucose (60-115) mg/dL Calcium (8.4-10.6) mg/dL Magnesium (1.5-2.6) mg/dL Total Bilirubin (0.1-1.5) mg/dL AST (12-35) U/L ALT (4-35) U/L Alkaline Phosphatase (40-150) U/L C-Reactive Protein (0.5-1.0) mg/dL Total Protein (6.0-8.3) g/dL Albumin (3.3-5.0) g/dL Urine Color Yellow (Yellow) Urine Appearance Clear (Clear) Urine pH 6.5 (5.0-8.5) Ur Specific [place] 1.010 (1.000-1.030) Urine Protein Negative (Negative) Urine Glucose (UA) Negative (Negative) Urine Ketones Trace A (Negative) Urine Blood Trace-intact A (Negative) Urine Nitrite Negative (Negative) Urine Bilirubin Negative (Negative) Urine Urobilinogen 0.2 (0.2-1.0) Ur Leukocyte Esterase Negative (Negative) Urine RBC 0-2 (0-2) Urine WBC 0-2 (0-5) Ur Squamous Epith Cells None (None-Few) Urine Bacteria None (None) Stl C.difficile Tox PCR (Negative) St C. diff Tox Epid 027 (Negative) SARS-CoV-2 (PCR) (Negative) Influenza Type A (PCR) (Negative) Influenza Type B (PCR) (Negative)
[2022-07-13] MEDS: 0.9 % SODIUM CHLORIDE 1000 ml 1,000 ML IV (16:00)
[2022-07-13 16:09] LABS: Basophils Absolute Auto 0.02 K/uL (0.00-0.30); Basophils Percent Auto 0.3 % (0.0-3.0); Eosinophils Absolute Auto 0.05 K/uL (0.00-0.50); Eosinophils Percent Auto 0.7 % (0.0-7.0); Hematocrit 35.8 % (33.0-51.0); Hemoglobin* 12.9 gm/dL (12.0-16.0); Immature Granulocytes Abs Auto 0.02 K/uL (0.00-0.30); Immature Granulocytes Pct Auto 0.3 %; Lymphocytes Absolute Auto 2.25 K/uL (0.90-2.90); Lymphocytes Percent Auto 31.3 % (20-44); Mean Corpuscular HGB Conc 36 gm/dL (32-36); Mean Corpuscular Hemoglobin 30 pg (26-34); Mean Corpuscular Volume 84 fL (80-100); Monocytes Percent Auto 8.9 % (0.0-11.0); Neutrophils Percent Auto 58.5 % (42.0-72.0); Platelet Count* 295 K/uL (140-440); RDW Coefficient of Variation % 11.1 % (11.5-15.5); Red Blood Count 4.24 m/uL (4.00-5.20); White Blood Count* 7.18 K/uL (4.50-11.00)
[2022-07-13 16:17] LABS: Albumin* 4.5 g/dL (3.3-5.0); Chloride* 85 mmol/L (96-114)
[2022-07-13 16:20] LABS: Aspartate Amino Transferase* 29 U/L (12-35); Bilirubin Total* 0.5 mg/dL (0.1-1.5); Carbon Dioxide* 27 mmol/L (20-32); Creatinine* 0.7 mg/dL (0.5-1.5); Est. Creatinine Clearance* 46.76; Estimated Glomerular Filt Rate 95 ml/min; Total Protein* 7.1 g/dL (6.0-8.3)
[2022-07-13 16:21] LABS: Alanine Aminotransferase* 17 U/L (4-35); Alkaline Phosphatase* 65 U/L (40-150); Blood Urea Nitrogen* 6 mg/dL (7-30); Calcium* 8.7 mg/dL (8.4-10.6); Glucose* 103 mg/dL (60-115); Magnesium* 1.5 mg/dL (1.5-2.6)
[2022-07-13 16:24] LABS: Slide Review Reflex No
[2022-07-13 16:25] LABS: C Reactive Protein* < 0.5 mg/dL (0.5-1.0)
[2022-07-13 16:26] LABS: Sodium* 118 mmol/L (135-149)
--- NOTE | 2022-07-13 16:27 | ED.NURSE ---
Dr Hartmann updated on sodium level
[2022-07-13 16:50] LABS: PCR FLU A Negative PCR FLU A (Negative); PCR FLU B Negative PCR FLU B (Negative)
[2022-07-13 16:55] LABS: C.Difficile Negative (Negative); CDIFFEPI 027 PRESUMPTIVE NEGATIVE (Negative); SARS PCR* Negative SARS-CoV-2 (Negative)
[2022-07-13] MEDS: KETOROLAC 15 MG/ML inj IVP (17:18)
[2022-07-13 18:03] LABS: Appearance Urine Clear (Clear); Bilirubin Urine Negative (Negative); Blood Urine Trace-intact (Negative); Color Urine Yellow (Yellow); Glucose Urine Negative (Negative); Ketones Urine Trace (Negative); Leukocyte Esterase Urine Negative (Negative); Nitrite Urine Negative (Negative); Protein Urine Negative (Negative); Urobilinogen Urine 0.2 (0.2-1.0); pH Urine 6.5 (5.0-8.5)
[2022-07-13 18:04] LABS: RBC Urine 0-2 (0-2); WBC Urine 0-2 (0-5)
[2022-07-13 21:48] LABS: Sodium* 125 mmol/L (135-149)
--- NOTE | 2022-07-13 22:22 | P.IMHP_ITS ---
Hospitalist- H&P: HPI History of Present Illness Time Seen by Provider: 21:15 Date Seen: 07/13/22 Chief complaint: Diarrhea for 5 days Narrative: Blanquita Peterson is a 66 year old female with a history of functional diarrhea and a history of C difficile diarrhea started having an acid and salty taste in her mouth last Wednesday or Wednesday. She describes things tasting really bad and then by she started having profuse watery diarrhea which has not let up. She has chronic pelvic pain which she says is from a nerve pain that she says is exacerbated by diarrhea. That pain has been worse lately. She got Toradol in the emergency department for it and it brought her pain from a 9 to a 7/10. She has not taken any Imodium for diarrhea. In the emergency department she was tested and found negative for C diff. she has not had a bowel movement since the 1 she had in the emergency department. She has not had any fevers or chills. She denies nausea or vomiting but notes that her appetite has been very poor since the diarrhea started and she has only had 2 pieces of toast in the last 5 days. She denies melena or bright red blood per rectum. She is not had any changes to her diet. She was prescribed amlodipine about a week ago for a new diagnosis of hypertension, but has not yet started taking it because she has been feeling poorly with the diarrhea. She denies any travel or sick contacts. Review of Systems Status of ROS: Reports: 10 or more systems reviewed and unremarkable except as noted in History and below [facility] Medical History (Updated 07/13/22 @ 23:06 by Melissa Avalos MD) Anxiety Benzodiazepine dependence Chronic pain Depression Dysthymic disorder Functional diarrhea Ganglion cyst History of Clostridioides difficile infection (2012) History of migraine Hyperlipidemia Hypothyroidism Mast cell activation syndrome Menopausal symptoms Normal colonoscopy Pelvic floor dysfunction Protein calorie malnutrition Seasonal allergies Surgical History History of carpal tunnel surgery of left wrist (04/23/09) History of hernia repair (06/07/18) History of vaginal hysterectomy (05/2005) Family History (Updated 07/13/22 @ 22:58 by Melissa Avalos MD) Sister Asthma Hypothyroidism Father Jaw cancer Mother Thyroid cancer Breast cancer Stroke Grandfather Coronary artery disease Grandmother Myocardial infarction Grandfather Leukemia Social History (Updated 07/13/22 @ 22:58 by Melissa Avalos MD) Narrative: . was here with her earlier. Denies tobacco, EtOH, or recreational drug use. FULL CODE. Highest level of school completed/degree received: Bachelor's degree Smoking Status: Never smoker Do you use any of these nicotine containing products: None Second hand tobacco smoke exposure: No How often do you have a drink containing alcohol: never How often do you have six or more drinks on one occasion: Never AUDIT-C Alcohol total score: 0 Non-prescribed substance use: denies use Caffeine: Yes (1 cup coffee daily) service: No Meds Home Medications and Allergies Home Medications Medication Instructions Recorded Confirmed Type diphenhydramine HCl 25 mg tablet 25 mg PO QID PRN 03/12/22 07/13/22 History (Allergy (diphenhydramine)) levothyroxine 112 mcg tablet 112 mcg PO DAILY 03/12/22 07/13/22 History lorazepam 0.5 mg tablet 0.5 mg PO TID PRN 03/12/22 07/13/22 History Histamine Conveyor Line Battery Charger PO 03/26/22 03/26/22 History ibuprofen 200 mg tablet (Advil) 400 mg PO .Q4-QH PRN 03/26/22 07/13/22 History levocetirizine 5 mg tablet (24HR 5 mg PO BID 03/26/22 07/13/22 History Allergy Relief) melatonin 5 mg capsule 5 mg PO .hs PRN 03/26/22 07/13/22 History amlodipine 5 mg tablet 5 mg PO DAILY 07/13/22 07/13/22 History Allergies Allergy/AdvReac Type Severity Reaction Status Date / Time red dye Allergy Verified 07/13/22 17:18 gelatin AdvReac Mild GI upset- Verified 07/13/22 17:18 gelatin capsules acetaminophen [From Tylenol] AdvReac Unknown Verified 07/13/22 17:18 Exam Narrative: Exam Narrative: General: Anxious. Depressed affect. Shaky voice. Poor eye contact. Awake alert oriented x3. HEENT: Normocephalic atraumatic, pupils equally round and reactive to light and accommodation. Oropharynx clear. Mucous membranes are moist. No cervical lymphadenopathy, thyromegaly or carotid bruits. No JVD. Cardiovascular: Regular rate and rhythm. No murmurs, gallops, or rubs. Chest: No increased work of breathing. Clear to auscultation bilaterally. No crackles or wheezes. Abdomen: Bowel sounds present. Soft, nondistended, nontender. No hepatosplenomegaly or masses. Extremities: No edema, no cyanosis or clubbing. Skin: No jaundice, no pallor, no rashes. Neuro: Grossly intact. No focal deficits. Const: Vital Signs, click to edit/add: Vital Signs - 24 hr 07/13/22 14:58 07/13/22 15:30 07/13/22 16:00 Temperature 96.0 F L Pulse Rate [Pulse Oximeter] 97 78 78 Respiratory Rate 18 14 18 Blood Pressure [Ri ght Upper Arm] 179/101 H 166/99 H 167/92 H Pulse Oximetry 98 99 98 Oxygen Delivery Me thod Room Air Room Air Room Air 07/13/22 17:00 07/13/22 18:18 07/13/22 18:18 Temperature 98.2 F Pulse Rate [Pulse Oximeter] 80 Respiratory Rate 16 16 16 Blood Pressure [Ri ght Upper Arm] 169/94 H Pulse Oximetry 98 98 97 Oxygen Delivery Me thod Room Air Room Air Room Air Documenting provider has reviewed patient's vital signs: yes Hospitalist - H&P: Result Labs Labs: Short CBC 07/13/22 Range/Units 16:00 WBC 7.18 (4.50-11.00) K/uL Hgb 12.9 (12.0-16.0) gm/dL Hct 35.8 (33.0-51.0) % Plt Count 295 (140-440) K/uL [facility] 07/13/22 07/13/22 16:00 21:20 Sodium 118 L* 125 L Potassium 4.0 Chloride 85 L Carbon Dioxide 27 BUN 6 L Creatinine 0.7 Glucose 103 Calcium 8.7 Liver Function 07/13/22 Range/Units 16:00 Total Bilirubin 0.5 (0.1-1.5) mg/dL AST 29 (12-35) U/L ALT 17 (4-35) U/L Alkaline Phosphatase 65 (40-150) U/L Albumin 4.5 (3.3-5.0) g/dL Urine 07/13/22 Range/Units 17:12 Urine Color Yellow (Yellow) Urine Appearance Clear (Clear) Urine pH 6.5 (5.0-8.5) Ur Specific [place] 1.010 (1.000-1.030) Urine Protein Negative (Negative) Urine Glucose (UA) Negative (Negative) Assessment and Plan Assessment and plan (1) Hyponatremia: Problem comment: Suspect secondary to diarrhea and polydipsia while not maintaining intake of solid food; she had a CT head earlier this month that was unremarkable and chest x-ray in February a previous episode of acute hyponatremia, this was also unremarkable. Sodium is already starting to improve after getting a normal saline fluid bolus in the ER. Status: Acute (2) Functional diarrhea: Problem comment: Possibly IBS. Abstracted [facility] record. Status: Chronic (3) Diarrhea: Problem comment: Suspect secondary to functional diarrhea, stool cultures pending, may need further workup if this is not resolve Status: Acute (4) History of Clostridioides difficile infection: Problem comment: Abstracted [facility] record. Status: Resolved (5) Hypertension: Problem comment: Newly diagnosed 07/06/2022 and prescribed amlodipine at that time, but she has not yet started it Status: Acute (6) Chronic pain: Problem comment: Shoulder, neck, abdominal, pelvic pain. Status: Chronic (7) Anxiety: Status: Chronic (8) Chronic hyponatremia: Status: Chronic (9) Palpitations: Problem comment: Addressed at a clinic visit 07/06/22; Zio patch was ordered then. Status: Acute (10) Depression: Problem comment: Abstracted [facility] record. Status: Chronic (11) Pelvic floor dysfunction: Status: Chronic (12) Hypothyroidism: Status: Chronic Plan 66-year-old female with acute hyponatremia likely secondary to diarrhea and polydipsia. Already improving after IV saline given in the ER. Continue oral f luid restriction, but no further saline infusion tonight as goal of an increase in sodium a 4-6 millimoles/L per day has already been achieved. Recheck sodium in the morning. We also appears to be improving as she has not had a bowel movement since the ER. Stool culture sent from the ER. C diff negative. Encourage oral intake of solid food especially since patient has a history of cutting calorie malnutrition. Significant anxiety and history of mast cell syndrome. Continue home medications. Will admit for observation as I suspect with improvement she has already had an sodium level, she may be able to go home tomorrow.
[2022-07-13] MEDS: LORazepam 0.5 MG TABLET PO (22:57)
[2022-07-13] MEDS: IBUPROFEN 400 MG TABLET PO (22:57)
--- NOTE | 2022-07-14 01:45 | PC.NURSE ---
Shift Note [id number]: Pt a/o and able to verbalize needs. at bedside. Pt appears uncomfortable and allows her to answer several questions for her. As admission progressed pt did open up more to participate in discussing her symptoms and POC. Initially rated pain 6/10 to her abdomen, pt was given home doses of HS meds per MD and she verbalized feeling much more comfortable. States she only ate a piece of toast today but has been drinking water. Urine is clear and quite diluted, output was greater than 1000cc from [id number]. C-diff neg. Stool culture pending. No loose stools since arrival to the floor.
[2022-07-14 03:00] VITALS: BP 114/66; PULSE 59; RESP 16; TEMP 36.7; O2SAT 94
--- NOTE | 2022-07-14 06:04 | PC.NURSE ---
Patient was alert and oriented x4. VSS. Denies pain, nausea and loose stools. She denies all other concerns at this time.
[2022-07-14] MEDS: LEVOTHYROXINE 112 MCG TABLET PO (06:27)
[2022-07-14 06:39] LABS: Chloride* 98 mmol/L (96-114); Sodium* 127 mmol/L (135-149)
[2022-07-14 06:41] LABS: Creatinine* 0.7 mg/dL (0.5-1.5); Est. Creatinine Clearance* 46.59; Estimated Glomerular Filt Rate 95 ml/min
[2022-07-14 06:42] LABS: Blood Urea Nitrogen* 4 mg/dL (7-30); Calcium* 8.8 mg/dL (8.4-10.6); Carbon Dioxide* 23 mmol/L (20-32); Glucose* 88 mg/dL (60-115)
[2022-07-14 07:53] VITALS: PULSE 83
[2022-07-14 08:07] VITALS: BP 144/80; PULSE 75; RESP 18; TEMP 36.6; O2SAT 97
[2022-07-14] MEDS: [UNRECOGNIZED DRUG - REMARK] 5 EACH PO (09:06)
[2022-07-14] MEDS: LORazepam 0.5 MG TABLET PO (09:08)
[2022-07-14 11:47] LABS: Sodium* 128 mmol/L (135-149)
[2022-07-14 12:42] VITALS: PULSE 72; RESP 16; TEMP 36.6; O2SAT 98
--- NOTE | 2022-07-14 14:26 | P.DS_ITS ---
DS: Providers Provider Time Seen by Provider: 08:00 Date Seen: 07/14/22 Date of admission: 07/13/22 18:00 Primary care physician: Crista Baird DO Admitting Clinician: Melissa Avalos MD Consults: 07/13/22 22:06 Consult to Physical Therapy [CONS] Routine Comment: Reason(s) for PT Consult:: Evaluate and Treat Any Restrictions?:: No Restrictions 07/13/22 22:08 Consult to Occupational Therapy [CONS] Routine Comment: Reason(s) for OT Consult:: Evaluate and Treat Any Restrictions?:: No Restrictions Attending Physician on discharge: Melissa Avalos MD Date of Discharge: 07/14/22 DS: Diagnosis Discharge Diagnosis (1) Hyponatremia: Status: Acute Problem details: Suspect secondary to diarrhea and polydipsia while not maintaining intake of solid food; she had a CT head earlier this month that was unremarkable and chest x-ray in February a previous episode of acute hyponatremia, this was also unremarkable. Sodium is already starting to improve after getting a normal saline fluid bolus in the ER. (2) Diarrhea: Status: Acute Problem details: Suspect secondary to functional diarrhea, stool cultures pending, may need further workup if this is not resolve (3) Functional diarrhea: Status: Chronic Problem details: Possibly IBS. Abstracted [facility] record. (4) Mast cell activation syndrome: Status: Chronic (5) Benzodiazepine dependence: Status: Chronic Problem details: per [facility] record 10/01/2021 (6) Protein calorie malnutrition: Status: Chronic Problem details: diagnosed 10/01/2021 (7) Palpitations: Status: Acute Problem details: Addressed at a clinic visit 07/06/22; Zio patch was ordered then. (8) Hypertension: Status: Acute Problem details: Newly diagnosed 07/06/2022 and prescribed amlodipine at that time, but she has not yet started it (9) Depression: Status: Chronic Problem details: Abstracted [facility] record. (10) Chronic pain: Status: Chronic Problem details: Shoulder, neck, abdominal, pelvic pain. (11) History of Clostridioides difficile infection: Status: Resolved Problem details: Abstracted [facility] record. (12) Pelvic floor dysfunction: Status: Chronic (13) Hypothyroidism: Status: Chronic (14) Anxiety: Status: Chronic (15) Chronic hyponatremia: Status: Chronic DS: Summary Hospital Course Hospital Course: This is a 66-year-old female with chronic hyponatremia and history of functional diarrhea who started having an ascitic and salty taste in her mouth last week and then developed profusely watery diarrhea. After about 5 days of diarrhea she continued to feel worse and was brought in by her to the emergency department. She was also having an exacerbation of chronic pelvic pain. She had a watery stool in the emergency department that tested negative for C difficile. Her sodium was 118. She was given an IV saline bolus and her sodium came up to 125. She was not given any further saline since she had already had an adequate rise in her sodium the 1st 24 hour period. By the morning of the 2nd hospital day her sodium had come up to 127 and is 128 by late morning. She has been on a fluid restriction. She has not had any further diarrhea since the stool in the emergency department. She is feeling much improved and appears improved on exam as well. She is discharged home in stable condition and I have asked her to follow-up with her primary care doctor. When I spoke with her about discharge, she noted that her primary care provider had contacted her and set up a nephrology appointment for her. Time Spent with Patient Time attestation: Total time spent providing and/or coordinating discharge services: Exam Narrative: Exam Narrative: General: Good eye contact. Affect bright. Smiling and joking this morning. Awake alert oriented x3. HEENT: Mucous membranes moist. Cardiovascular: Regular rate and rhythm. No murmurs, gallops, or rubs. Chest: No increased work of breathing. Clear to auscultation bilaterally. No crackles or wheezes. Abdomen: Bowel sounds present. Soft, nondistended, nontender. No hepatosplenomegaly or masses. Const: Vital Signs, click to edit/add: Vital Signs - 24 hr 07/13/22 14:58 07/13/22 15:30 07/13/22 16:00 Temperature 96.0 F L Pulse Rate Pulse Rate [Apical ] Pulse Rate [Pulse Oximeter] 97 78 78 Respiratory Rate 18 14 18 Blood Pressure [Ri ght Arm] Blood Pressure [Ri ght Upper Arm] 179/101 H 166/99 H 167/92 H Pulse Oximetry 98 99 98 Oxygen Delivery Me thod Room Air Room Air Room Air 07/13/22 17:00 07/13/22 18:18 07/13/22 18:18 Temperature 98.2 F Pulse Rate Pulse Rate [Apical ] Pulse Rate [Pulse Oximeter] 80 Respiratory Rate 16 16 16 Blood Pressure [Ri ght Arm] Blood Pressure [Ri ght Upper Arm] 169/94 H Pulse Oximetry 98 98 97 Oxygen Delivery Me thod Room Air Room Air Room Air 07/13/22 23:00 07/13/22 23:00 07/13/22 23:39 Temperature 98.4 F Pulse Rate 65 Pulse Rate [Apical ] 65 65 Pulse Rate [Pulse Oximeter] Respiratory Rate 16 16 Blood Pressure [Ri ght Arm] Blood Pressure [Ri ght Upper Arm] Pulse Oximetry 96 Oxygen Delivery Me thod Room Air 07/14/22 03:00 07/14/22 07:53 07/14/22 08:07 Temperature 98.1 F Pulse Rate 83 Pulse Rate [Apical ] 59 L 75 Pulse Rate [Pulse Oximeter] Respiratory Rate 16 18 Blood Pressure [Ri ght Arm] 114/66 Blood Pressure [Ri ght Upper Arm] Pulse Oximetry 94 Oxygen Delivery Me thod Room Air 07/14/22 08:07 07/14/22 12:42 Temperature 97.9 F 98 F Pulse Rate Pulse Rate [Apical ] 75 72 Pulse Rate [Pulse Oximeter] Respiratory Rate 18 16 Blood Pressure [Ri ght Arm] 144/80 H Blood Pressure [Ri ght Upper Arm] Pulse Oximetry 97 98 Oxygen Delivery Me thod Room Air Room Air Documenting provider has reviewed patient's vital signs: yes DS: Data Data Completed and Pending Labs on day of discharge: Labs from last 24 hours 07/14/22 07/14/22 07/13/22 11:22 06:03 21:20 WBC RBC Hgb Hct MCV MCH MCHC RDW Coeff of [place] Plt Count Neut % (Auto) Lymph % (Auto) [place] % (Auto) Eos % (Auto) Baso % (Auto) Neut # (Auto) Lymph # (Auto) [place] # (Auto) Eos # (Auto) Baso # (Auto) Sodium 128 L 127 L 125 L Potassium 4.0 Chloride 98 Carbon Dioxide 23 BUN 4 L Creatinine 0.7 Estimated Creat Clear 46.59 Estimated GFR 95 Glucose 88 Calcium 8.8 Magnesium Total Bilirubin AST ALT Alkaline Phosphatase C-Reactive Protein Total Protein Albumin Urine Color Urine Appearance Urine pH Ur Specific [place] Urine Protein Urine Glucose (UA) Urine Ketones Urine Blood Urine Nitrite Urine Bilirubin Urine Urobilinogen Ur Leukocyte Esterase Urine RBC Urine WBC Ur Squamous Epith Cells Urine Bacteria Stl C.difficile Tox PCR St C. diff Tox Epid 027 SARS-CoV-2 (PCR) Influenza Type A (PCR) Influenza Type B (PCR) 07/13/22 07/13/22 07/13/22 17:12 16:00 16:00 WBC RBC Hgb Hct MCV MCH MCHC RDW Coeff of [place] Plt Count Neut % (Auto) Lymph % (Auto) [place] % (Auto) Eos % (Auto) Baso % (Auto) Neut # (Auto) Lymph # (Auto) [place] # (Auto) Eos # (Auto) Baso # (Auto) Sodium 118 L* Potassium 4.0 Chloride 85 L Carbon Dioxide 27 BUN 6 L Creatinine 0.7 Estimated Creat Clear 46.76 Estimated GFR 95 Glucose 103 Calcium 8.7 Magnesium 1.5 Total Bilirubin 0.5 AST 29 ALT 17 Alkaline Phosphatase 65 C-Reactive Protein < 0.5 L Total Protein 7.1 Albumin 4.5 Urine Color Yellow Urine Appearance Clear Urine pH 6.5 Ur Specific [place] 1.010 Urine Protein Negative Urine Glucose (UA) Negative Urine Ketones Trace A Urine Blood Trace-intact A Urine Nitrite Negative Urine Bilirubin Negative Urine Urobilinogen 0.2 Ur Leukocyte Esterase Negative Urine RBC 0-2 Urine WBC 0-2 Ur Squamous Epith Cells None Urine Bacteria None Stl C.difficile Tox PCR Negative St C. diff Tox Epid 027 PRESUMPTIVE NEGATIVE SARS-CoV-2 (PCR) Negative SARS-CoV-2 Influenza Type A (PCR) Negative PCR FLU A Influenza Type B (PCR) Negative PCR FLU B 07/13/22 16:00 WBC 7.18 RBC 4.24 Hgb 12.9 Hct 35.8 MCV 84 MCH 30 MCHC 36 RDW Coeff of [place] 11.1 L Plt Count 295 Neut % (Auto) 58.5 Lymph % (Auto) 31.3 [place] % (Auto) 8.9 Eos % (Auto) 0.7 Baso % (Auto) 0.3 Neut # (Auto) 4.20 Lymph # (Auto) 2.25 [place] # (Auto) 0.60 Eos # (Auto) 0.05 Baso # (Auto) 0.02 Sodium Potassium Chloride Carbon Dioxide BUN Creatinine Estimated Creat Clear Estimated GFR Glucose Calcium Magnesium Total Bilirubin AST ALT Alkaline Phosphatase C-Reactive Protein Total Protein Albumin Urine Color Urine Appearance Urine pH Ur Specific [place] Urine Protein Urine Glucose (UA) Urine Ketones Urine Blood Urine Nitrite Urine Bilirubin Urine Urobilinogen Ur Leukocyte Esterase Urine RBC Urine WBC Ur Squamous Epith Cells Urine Bacteria Stl C.difficile Tox PCR St C. diff Tox Epid 027 SARS-CoV-2 (PCR) Influenza Type A (PCR) Influenza Type B (PCR) Discharge Plan Discharge Disposition: Home, Self-Care Date of Admission: 07/13/22 18:00 Attending Provider on Discharge: Melissa Avalos Primary Care Provider: Crista Baird Condition: Improved Anticipated Discharge Date/Time: 07/14/22 14:24 Discharge Medications: Continued melatonin 5 mg capsule 5 mg PO .hs PRN diphenhydramine HCl [Allergy (diphenhydramine)] 25 mg tablet 25 mg PO QID PRN lorazepam 0.5 mg tablet 0.5 mg PO TID PRN Label Comments: TAKE ONE TABLET BY MOUTH (0.5MG) BY MOUTH 3 TIMES DAILY IF NEEDED FOR ANXIETY. levothyroxine 112 mcg tablet 112 mcg PO DAILY Label Comments: TAKE 1 TABLET (112 MCG) BY MOUTH BEFORE BREAKFAST. ibuprofen [Advil] 200 mg tablet 400 mg PO .Q4-QH PRN levocetirizine [24HR Allergy Relief] 5 mg tablet 5 mg PO BID amlodipine 5 mg tablet 5 mg PO DAILY cholecalciferol (vitamin D3) 125 mcg (5,000 unit) tablet 125 mcg PO DAILY Discharge Orders: Discharge Order (Routine); Ordered 07/14/22 Ordered By: Melissa Avalos Additional Instructions: If you develop diarrhea, be sure to replace electrolytes (sodium) as well as w ater. Consider using broth, gatorade or pedialyte. Follow up with nephrology as set up by your PCP. Activity Level: No Restrictions Discharge Diet: Regular and 2000 ml Fluid Restriction Follow Up Appointments: Crista Baird, DO [Primary Care Provider] - (5 days, sodium level) Forms: [place] [facility] Info Instructions
--- NOTE | 2022-07-14 17:32 | PC.NURSE ---
Discharge note: Pt a/o and able to verblize needs. Eager to d/c to home. Pt verbalized understanding of discharge instructions and follow up appointments. She was discharged to home independently at 1600.
== END 2022-07-14 17:33 | disposition home or self-care (01) ==
LOC: ED 15:42 → MEDSURG 18:11
PROVIDERS: Admitting Provider Family Medicine; Emergency Provider Family Medicine; PCP Family Medicine; Visit Provider Family Medicine
DX: E87.1 Hypo-osmolality and hyponatremia (principal); K59.1 Functional diarrhea; E46 Unspecified protein-calorie malnutrition; I10 Essential (primary) hypertension; R63.1 Polydipsia; D89.40 Mast cell activation, unspecified; F13.20 Sedative, hypnotic or anxiolytic dependence, uncomplicated; R00.2 Palpitations; F32.A Depression, unspecified; Z86.19 Personal history of other infectious and parasitic diseases; E03.9 Hypothyroidism, unspecified; F41.9 Anxiety disorder, unspecified; M62.89 Other specified disorders of muscle; M99.05 Segmental and somatic dysfunction of pelvic region; R10.32 Left lower quadrant pain; Z98.890 Other specified postprocedural states; M25.519 Pain in unspecified shoulder; G89.29 Other chronic pain; M54.2 Cervicalgia; R10.9 Unspecified abdominal pain
CPT/HCPCS: 36415; 80048; 80053; 81001; 83735; 84295; 85025; 86140; 87045; 87046; 87252; 87427; 87493; 87631; 96361; 96374; 97161; 97165; 99284; G0378; A9270; G0379; J1885; J7030

== ENCOUNTER 2022-09-02 08:30 | Emergency (ER) | payer MEDICARE, BC, SELFPAY ==
[2022-09-02 08:41] VITALS: BP 122/85; PULSE 103; RESP 18; TEMP 36.6; O2SAT 95; BMI 19.0
--- NOTE | 2022-09-02 09:21 | ED.GENADULT ---
HPI - General Adult General Chief complaint: Diarrhea Stated complaint: Diarrhea since Wednesday Time Seen by Provider: 09/02/22 08:39 History of Present Illness HPI narrative: This 66-year-old female comes in because of diarrhea. She states that she has had recurrent bouts of diarrhea over the past couple months and prior to this over the past year but less frequently than. She does not have much for abdominal pain. She has had hyponatremia related to this in the past. She did receive IV fluids at a different facility a couple weeks ago at which time there was also a CT scan of the abdomen and pelvis performed. There were no findings on CT scan that were remarkable. She was told at that time that she had some insufficiency of her pancreas enzymes. She has been taking an over the counter medicine in this regard as the prescription for pancreatic enzyme she was given was very expensive. She does not report any fevers, nausea, or vomiting. She states that she is very sensitive to foods and does report a diagnosis of mast cell activation syndrome. Related Data Home Medications Medication Instructions Recorded Confirmed diphenhydramine HCl 25 mg tablet 25 mg PO QID PRN 03/12/22 07/13/22 (Allergy (diphenhydramine)) levothyroxine 112 mcg tablet 112 mcg PO DAILY 03/12/22 07/13/22 lorazepam 0.5 mg tablet 0.5 mg PO TID PRN 03/12/22 07/13/22 ibuprofen 200 mg tablet (Advil) 400 mg PO .Q4-QH PRN 03/26/22 07/13/22 levocetirizine 5 mg tablet (24HR 5 mg PO BID 03/26/22 07/13/22 Allergy Relief) melatonin 5 mg capsule 5 mg PO .hs PRN 03/26/22 07/13/22 amlodipine 5 mg tablet 5 mg PO DAILY 07/13/22 07/13/22 cholecalciferol (vitamin D3) 125 125 mcg PO DAILY 07/14/22 07/14/22 mcg (5,000 unit) tablet Previous Rx's Medication Instructions Recorded diphenoxylate-atropine 2.5 1 tab PO DAILY #10 tabs 09/02/22 mg-0.025 mg tablet (Lomotil) Allergies Allergy/AdvReac Type Severity Reaction Status Date / Time red dye Allergy Verified 07/13/22 17:18 gelatin AdvReac Mild GI upset- Verified 07/13/22 17:18 gelatin capsules acetaminophen [From Tylenol] AdvReac Unknown Verified 07/13/22 17:18 Review of Systems Status of ROS: Reports: 10 or more systems reviewed and unremarkable except as noted in History and below Narrative: Constitutional: No fevers, no weight gain or loss. Eyes: No discharge. No vision changes. HENT: No congestion, no sore throat, no ear pain. Cardiovascular: No chest pain, no palpitations. Respiratory: No shortness of breath, no wheezes, no cough. Gastrointestinal: No abdominal pain, no vomiting. Watery diarrhea. No blood in the toilet. Genitourinary: No dysuria, no hematuria. Musculoskeletal: Normal range of motion. Skin: No rashes, no pruritis. Neurological: No dizziness, weakness, sensory change, speech change. Endo/Heme/Allergies: No bruising or bleeding. No polydipsia. Pysch: no suicidality, no anxiety, no insomnia. All other systems reviewed and are negative. [facility] Medical History (Updated 09/02/22 @ 12:57 by Tye Salguero MD) Anxiety Benzodiazepine dependence Chronic pain Depression Dysthymic disorder Functional diarrhea Ganglion cyst History of Clostridioides difficile infection (2012) History of migraine Hyperlipidemia Hypothyroidism Mast cell activation syndrome Menopausal symptoms Normal colonoscopy Pelvic floor dysfunction Protein calorie malnutrition Seasonal allergies Surgical History History of carpal tunnel surgery of left wrist (04/23/09) History of hernia repair (06/07/18) History of vaginal hysterectomy (05/2005) Family History (Updated 07/13/22 @ 22:58 by Melissa Avalos MD) Sister Asthma Hypothyroidism Father Jaw cancer Mother Thyroid cancer Breast cancer Stroke Grandfather Coronary artery disease Grandmother Myocardial infarction Grandfather Leukemia Social History (Updated 07/13/22 @ 22:58 by Melissa Avalos MD) Narrative: . was here with her earlier. Denies tobacco, EtOH, or recreational drug use. FULL CODE. Highest level of school completed/degree received: Bachelor's degree Smoking Status: Never smoker Do you use any of these nicotine containing products: None Second hand tobacco smoke exposure: No How often do you have a drink containing alcohol: never How often do you have six or more drinks on one occasion: Never AUDIT-C Alcohol total score: 0 Non-prescribed substance use: denies use Caffeine: Yes (1 cup coffee daily) service: No Exam Narrative: Exam Narrative: Constitutional: Well-developed, well-nourished, no acute distress. HEENT: Normocephalic, atraumatic. Neck: Normal range of motion. Nontender. Supple. Heart: Regular. No murmurs. Normal rate. Intact distal pulses. Lungs: Clear to auscultation. No chest discomfort. No wheezes, rhonchi, or rales. Abdomen: Normal bowel sounds. Nontender. No rebound tenderness. Genitalia: Deferred. Back: No midline tenderness. Normal range of motion. Extremities: Normal range of motion. No injury. Skin: Intact. No rash. Warm. No erythema or pallor. Neurologic: No altered sensation. No weakness. Alert and oriented. Psychiatric: No suicidality. No anxiety or depression. No insomnia. Nursing notes and vitals signs are reviewed. Const: Vital Signs, click to edit/add: Vital Signs - 24 hr 09/02/22 08:41 09/02/22 12:25 Temperature 97.8 F Pulse Rate [Right Pulse Oximeter] 103 H 85 Respiratory Rate 18 18 Blood Pressure [Ri ght Upper Arm] 122/85 147/81 H Pulse Oximetry 95 98 Oxygen Delivery Me thod Room Air Room Air Course Vital Signs Vital signs: Initial Vital Signs Temperature 97.8 F 09/02/22 08:41 Temperature Source Temporal Artery Scan 09/02/22 08:41 Pulse Rate 103 H 09/02/22 08:41 Respiratory Rate 18 09/02/22 08:41 Blood Pressure 122/85 09/02/22 08:41 Blood Pressure Mean 97 09/02/22 08:41 Blood Pressure Position Sitting 09/02/22 08:41 Pulse Oximetry 95 09/02/22 08:41 Oxygen Delivery Method 09/02/22 08:41 Vital Signs Temperature 97.8 F 09/02/22 08:41 Pulse Rate 103 H 09/02/22 08:41 Respiratory Rate 18 09/02/22 08:41 Blood Pressure 122/85 09/02/22 08:41 Pulse Oximetry 95 09/02/22 08:41 Oxygen Delivery Method 09/02/22 08:41 Temperature 97.8 F 09/02/22 08:41 Pulse Rate 85 09/02/22 12:25 Respiratory Rate 18 09/02/22 12:25 Blood Pressure 147/81 H 09/02/22 12:25 Pulse Oximetry 98 09/02/22 12:25 Oxygen Delivery Method 09/02/22 12:25 Medical Decision Making MDM Narrative Medical decision making narrative: This patient comes in reporting generalized malaise and recurrent diarrhea a. She is seeing specialists and there is consideration of mast cell activation syndrome. She arrives with normal vital signs. An IV was established where she received a L of normal saline intravenously. Her labs returned with reassuring findings. In particular her sodium is at 135. Her TSH is low so I did order a free thyroxine level which returns normal. This patient is okay to return home to follow-up with her regular physicians and continue current plans. She is taking a fiber additive to help normalize her stools. I recommended using Imodium as needed and directed for diarrhea. She also did receive a few tablets of Lomotil if something more aggressive is needed to control her diarrhea. Lab Data Labs: Lab Results 09/02/22 09/02/22 09/02/22 Range/Units 09:30 09:30 09:30 WBC 5.59 (4.50-11.00) K/uL RBC 4.50 (4.00-5.20) m/uL Hgb 13.5 (12.0-16.0) gm/dL Hct 40.6 (33.0-51.0) % MCV 90 (80-100) fL MCH 30 (26-34) pg MCHC 33 (32-36) gm/dL RDW Coeff of [place]aman 12.3 (11.5-15.5) % Plt Count 331 (140-440) K/uL Neut % (Auto) 61.0 (42.0-72.0) % Lymph % (Auto) 29.2 (20-44) % [place] % (Auto) 8.1 (0.0-11.0) % Eos % (Auto) 1.3 (0.0-7.0) % Baso % (Auto) 0.2 (0.0-3.0) % Neut # (Auto) 3.42 (1.7-7.0) K/uL Lymph # (Auto) 1.63 (0.90-2.90) K/uL [place] # (Auto) 0.50 (0.00-0.90) K/UL Eos # (Auto) 0.07 (0.00-0.50) K/uL Baso # (Auto) 0.01 (0.00-0.30) K/uL ESR 5 (2-20) mm/hr Sodium 134 L (135-149) mmol/L Potassium 4.6 (3.6-5.1) mmol/L Chloride 100 (96-114) mmol/L Carbon Dioxide 29 (20-32) mmol/L BUN 9 (7-30) mg/dL Creatinine 0.8 (0.5-1.5) mg/dL Estimated Creat Clear 45.17 Estimated GFR 81 ml/min Glucose 97 (60-115) mg/dL Calcium 9.2 (8.4-10.6) mg/dL Total Bilirubin (0.1-1.5) mg/dL Direct Bilirubin (0.0-0.5) mg/dL AST (12-35) U/L ALT (4-35) U/L Alkaline Phosphatase (40-150) U/L C-Reactive Protein < 0.5 L (0.5-1.0) mg/dL Total Protein (6.0-8.3) g/dL Albumin (3.3-5.0) g/dL TSH (0.270-4.20) uIU/mL Free T4 (0.70-1.85) ng/dL 09/02/22 09/02/22 09/02/22 Range/Units 09:30 09:30 09:30 WBC (4.50-11.00) K/uL RBC (4.00-5.20) m/uL Hgb (12.0-16.0) gm/dL Hct (33.0-51.0) % MCV (80-100) fL MCH (26-34) pg MCHC (32-36) gm/dL RDW Coeff of [place] (11.5-15.5) % Plt Count (140-440) K/uL Neut % (Auto) (42.0-72.0) % Lymph % (Auto) (20-44) % [place] % (Auto) (0.0-11.0) % Eos % (Auto) (0.0-7.0) % Baso % (Auto) (0.0-3.0) % Neut # (Auto) (1.7-7.0) K/uL Lymph # (Auto) (0.90-2.90) K/uL [place] # (Auto) (0.00-0.90) K/UL Eos # (Auto) (0.00-0.50) K/uL Baso # (Auto) (0.00-0.30) K/uL ESR (2-20) mm/hr Sodium (135-149) mmol/L Potassium (3.6-5.1) mmol/L Chloride (96-114) mmol/L Carbon Dioxide (20-32) mmol/L BUN (7-30) mg/dL Creatinine (0.5-1.5) mg/dL Estimated Creat Clear Estimated GFR ml/min Glucose (60-115) mg/dL Calcium (8.4-10.6) mg/dL Total Bilirubin 0.4 (0.1-1.5) mg/dL Direct Bilirubin 0.2 (0.0-0.5) mg/dL AST 23 (12-35) U/L ALT 17 (4-35) U/L Alkaline Phosphatase 58 (40-150) U/L C-Reactive Protein (0.5-1.0) mg/dL Total Protein 7.3 (6.0-8.3) g/dL Albumin 4.4 (3.3-5.0) g/dL TSH 0.089 L (0.270-4.20) uIU/mL Free T4 1.81 (0.70-1.85) ng/dL Discharge Plan Discharge Clinical Impression: Diarrhea Patient Disposition: Home, Self-Care Condition: Unchanged Additional Instructions: Continue current plans. Use Imodium for diarrhea as needed and directed. If needed use Lomotil for additional relief of diarrhea. Follow-up with primary physician and specialist as scheduled and needed. Return if worsening. Prescriptions: New diphenoxylate-atropine [Lomotil] 2.5-0.025 mg tablet 1 tab PO DAILY Qty: 10 0RF No Action melatonin 5 mg capsule 5 mg PO .hs PRN diphenhydramine HCl [Allergy (diphenhydramine)] 25 mg tablet 25 mg PO QID PRN lorazepam 0.5 mg tablet 0.5 mg PO TID PRN Label Comments: TAKE ONE TABLET BY MOUTH (0.5MG) BY MOUTH 3 TIMES DAILY IF NEEDED FOR ANXIETY. levothyroxine 112 mcg tablet 112 mcg PO DAILY Label Comments: TAKE 1 TABLET (112 MCG) BY MOUTH BEFORE BREAKFAST. ibuprofen [Advil] 200 mg tablet 400 mg PO .Q4-QH PRN levocetirizine [24HR Allergy Relief] 5 mg tablet 5 mg PO BID amlodipine 5 mg tablet 5 mg PO DAILY cholecalciferol (vitamin D3) 125 mcg (5,000 unit) tablet 125 mcg PO DAILY Follow Up/Referrals: Crista Baird DO [Primary Care Provider] - Stand Alone [facility]
[2022-09-02 09:40] LABS: Basophils Absolute Auto 0.01 K/uL (0.00-0.30); Basophils Percent Auto 0.2 % (0.0-3.0); Eosinophils Absolute Auto 0.07 K/uL (0.00-0.50); Eosinophils Percent Auto 1.3 % (0.0-7.0); Hematocrit 40.6 % (33.0-51.0); Hemoglobin* 13.5 gm/dL (12.0-16.0); Immature Granulocytes Abs Auto 0.01 K/uL (0.00-0.30); Immature Granulocytes Pct Auto 0.2 %; Lymphocytes Absolute Auto 1.63 K/uL (0.90-2.90); Lymphocytes Percent Auto 29.2 % (20-44); Mean Corpuscular HGB Conc 33 gm/dL (32-36); Mean Corpuscular Hemoglobin 30 pg (26-34); Mean Corpuscular Volume 90 fL (80-100); Monocytes Percent Auto 8.1 % (0.0-11.0); Neutrophils Absolute Auto 3.42 K/uL (1.7-7.0); Platelet Count* 331 K/uL (140-440); RDW Coefficient of Variation % 12.3 % (11.5-15.5); White Blood Count* 5.59 K/uL (4.50-11.00)
[2022-09-02] MEDS: 0.9 % SODIUM CHLORIDE 1000 ml 1,000 ML IV (09:40)
[2022-09-02 09:45] LABS: Slide Review Reflex No
[2022-09-02 09:57] LABS: Chloride* 100 mmol/L (96-114); Potassium* 4.6 mmol/L (3.6-5.1); Sodium* 134 mmol/L (135-149)
[2022-09-02 09:58] LABS: Albumin* 4.4 g/dL (3.3-5.0)
[2022-09-02 10:00] LABS: Creatinine* 0.8 mg/dL (0.5-1.5); Est. Creatinine Clearance* 45.17; Estimated Glomerular Filt Rate 81 ml/min
[2022-09-02 10:01] LABS: Bilirubin Direct* 0.2 mg/dL (0.0-0.5); Bilirubin Total* 0.4 mg/dL (0.1-1.5); Blood Urea Nitrogen* 9 mg/dL (7-30); Calcium* 9.2 mg/dL (8.4-10.6); Carbon Dioxide* 29 mmol/L (20-32); Glucose* 97 mg/dL (60-115); Total Protein* 7.3 g/dL (6.0-8.3)
[2022-09-02 10:02] LABS: Alanine Aminotransferase* 17 U/L (4-35); Alkaline Phosphatase* 58 U/L (40-150); Aspartate Amino Transferase* 23 U/L (12-35)
[2022-09-02 10:05] LABS: C Reactive Protein* < 0.5 mg/dL (0.5-1.0)
[2022-09-02 10:32] LABS: Erythrocyte SedimentationRate* 5 mm/hr (2-20)
[2022-09-02 10:47] LABS: Thyroid Stimulating Hormone* 0.089 uIU/mL (0.270-4.20)
[2022-09-02 12:25] VITALS: BP 147/81; PULSE 85; RESP 18; O2SAT 98
[2022-09-02 12:38] LABS: Free T4 Free Thyroxine* 1.81 ng/dL (0.70-1.85)
== END 2022-09-02 13:06 | disposition home or self-care (01) ==
PROVIDERS: Emergency Provider Emergency Medicine Emergency Medical Services; PCP Family Medicine
DX: R19.7 Diarrhea, unspecified (principal)
CPT/HCPCS: 36415; 80048; 80076; 84439; 84443; 85025; 85651; 86140; 99283; 99284; J7030

== ENCOUNTER 2022-11-27 10:21 | Emergency (ER) | payer MEDICARE, BC, SELFPAY ==
[2022-11-27] VITALS (30 sets, daily range): BP systolic 130–166; BP diastolic 77–94; PULSE 69–89; RESP 18; TEMP 37.4; O2SAT 95–99; BMI 19.6
[2022-11-27 11:27] LABS: Lactate* 0.7 mmol/L (0.5-1.9)
[2022-11-27 11:28] LABS: Basophils Absolute Auto 0.01 K/uL (0.00-0.30); Basophils Percent Auto 0.2 % (0.0-3.0); Eosinophils Absolute Auto 0.04 K/uL (0.00-0.50); Eosinophils Percent Auto 0.6 % (0.0-7.0); Hematocrit 36.7 % (33.0-51.0); Hemoglobin* 12.8 gm/dL (12.0-16.0); Immature Granulocytes Abs Auto 0.01 K/uL (0.00-0.30); Immature Granulocytes Pct Auto 0.2 %; Lymphocytes Percent Auto 20.2 % (20-44); Mean Corpuscular HGB Conc 35 gm/dL (32-36); Mean Corpuscular Hemoglobin 30 pg (26-34); Mean Corpuscular Volume 86 fL (80-100); Monocytes Percent Auto 5.7 % (0.0-11.0); Neutrophils Percent Auto 73.1 % (42.0-72.0); Platelet Count* 360 K/uL (140-440); RDW Coefficient of Variation % 11.8 % (11.5-15.5); Red Blood Count 4.27 m/uL (4.00-5.20); White Blood Count* 6.45 K/uL (4.50-11.00)
[2022-11-27 11:30] LABS: Slide Review Reflex No
[2022-11-27] MEDS: ONDANSETRON 2 MG/ML inj 4 MG IVP (11:36)
[2022-11-27] MEDS: 0.9 % SODIUM CHLORIDE 1000 ml 1,000 ML IV (11:36)
[2022-11-27 11:43] LABS: Albumin* 4.5 g/dL (3.3-5.0); Chloride* 88 mmol/L (96-114)
[2022-11-27 11:44] LABS: Potassium* 4.2 mmol/L (3.6-5.1)
[2022-11-27 11:46] LABS: Creatinine* 0.8 mg/dL (0.5-1.5); Est. Creatinine Clearance* 46.13; Estimated Glomerular Filt Rate 81 ml/min
[2022-11-27 11:47] LABS: Alanine Aminotransferase* 16 U/L (4-35); Alkaline Phosphatase* 63 U/L (40-150); Aspartate Amino Transferase* 22 U/L (12-35); Bilirubin Direct* 0.3 mg/dL (0.0-0.5); Bilirubin Total* 0.5 mg/dL (0.1-1.5); Blood Urea Nitrogen* 6 mg/dL (7-30); Calcium* 9.1 mg/dL (8.4-10.6); Carbon Dioxide* 25 mmol/L (20-32); Glucose* 90 mg/dL (60-115); Lipase* 58 U/L (23-300); Total Protein* 7.1 g/dL (6.0-8.3)
--- NOTE | 2022-11-27 11:52 | ED_ITS ---
HPI - General Adult General Date Seen: 11/27/22 Chief complaint: Diarrhea Stated complaint: Diarrhea Time Seen by Provider: 11/27/22 10:51 Source: patient Mode of arrival: ambulatory Limitations: no limitations History of Present Illness HPI narrative: Patient is a 67-year-old woman who presents for evaluation of diarrhea and weakness. She says she has been sick for about a week, initially had some nausea and vomiting but that was brief and now since then she just had watery stools. No blood, no abdominal pain, no fevers. She has had problems with diarrhea for quite some time on and off, had 1 admission previously with hyponatremia which rebounded quickly with some normal saline. 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 She says she has been too weak to stand up and has been crawling around at home for the past couple of days. She is here with her . She has not had shortness of breath, has had a little bit of a cough and initially had a sore throat so she thought she might have COVID, did a couple of tests at home which were negative. No urinary symptoms. Has not used Imodium or any other GI medications at home. Related Data Home Medications Medication Instructions Recorded Confirmed diphenhydramine HCl 25 mg tablet 25 mg PO QID PRN 03/12/22 07/13/22 (Allergy (diphenhydramine)) levothyroxine 112 mcg tablet 112 mcg PO DAILY 03/12/22 07/13/22 lorazepam 0.5 mg tablet 0.5 mg PO TID PRN 03/12/22 07/13/22 ibuprofen 200 mg tablet (Advil) 400 mg PO .Q4-QH PRN 03/26/22 07/13/22 levocetirizine 5 mg tablet (24HR 5 mg PO BID 03/26/22 07/13/22 Allergy Relief) melatonin 5 mg capsule 5 mg PO .hs PRN 03/26/22 07/13/22 amlodipine 5 mg tablet 5 mg PO DAILY 07/13/22 07/13/22 cholecalciferol (vitamin D3) 125 125 mcg PO DAILY 07/14/22 07/14/22 mcg (5,000 unit) tablet Previous Rx's Medication Instructions Recorded diphenoxylate-atropine 2.5 1 tab PO DAILY #10 tabs 09/02/22 mg-0.025 mg tablet (Lomotil) Allergies Allergy/AdvReac Type Severity Reaction Status Date / Time red dye Allergy Verified 07/13/22 17:18 gelatin AdvReac Mild GI upset- Verified 07/13/22 17:18 gelatin capsules acetaminophen [From Tylenol] AdvReac Unknown Verified 07/13/22 17:18 Review of Systems Status of ROS: Reports: 10 or more systems reviewed and unremarkable except as noted in History and below [facility] Medical History 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 - Mast cell activation, unspecified (ICD-10) Benzodiazepine dependence ?F13.20 - Sedative, hypnotic or anxiolytic dependence, uncomplicated (ICD-10) Protein calorie malnutrition ?E46 - Unspecified protein-calorie malnutrition (ICD-10) Normal colonoscopy Dysthymic disorder ?F34.1 - Dysthymic disorder (ICD-10) Hyperlipidemia ?E78.5 - Hyperlipidemia, unspecified (ICD-10) Menopausal symptoms ?N95.1 - Menopausal and female climacteric states (ICD-10) Ganglion cyst ?M67.40 - Ganglion, unspecified site (ICD-10) History of migraine ?Z86.69 - Personal history of other diseases of the nervous system and sense organs (ICD-10) Functional diarrhea ?K59.1 - Functional diarrhea (ICD-10) Depression ?F32.A - Depression, unspecified (ICD-10) Chronic pain ?G89.29 - Other chronic pain (ICD-10) History of Clostridioides difficile infection (2012) ?Z86.19 - Personal history of other infectious and parasitic diseases (ICD- 10) Seasonal allergies ?J30.2 - Other seasonal allergic rhinitis (ICD-10) Hypothyroidism ?E03.9 - Hypothyroidism, unspecified (ICD-10) Pelvic floor dysfunction ?M62.89 - Other specified disorders of muscle (ICD-10) Anxiety ?F41.9 - Anxiety disorder, unspecified (ICD-10) Surgical History History of vaginal hysterectomy (05/2005) ?Z90.710 - Acquired absence of both cervix and uterus (ICD-10) History of carpal tunnel surgery of left wrist (04/23/09) ?Z98.890 - Other specified postprocedural states (ICD-10) History of hernia repair (06/07/18) ?Z98.890 - Other specified postprocedural states (ICD-10) ?Z87.19 - Personal history of other diseases of the digestive system (ICD-10) Family History Sister Asthma Hypothyroidism Father Jaw cancer Mother Thyroid cancer Breast cancer Stroke Grandfather Coronary artery disease Grandmother Myocardial infarction Grandfather Leukemia Social History Narrative: . was here with her earlier. Denies tobacco, EtOH, or recreational drug use. FULL CODE. Highest level of school completed/degree received: Bachelor's degree Smoking Status: Never smoker Do you use any of these nicotine containing products: None Second hand tobacco smoke exposure: No How often do you have a drink containing alcohol: never How often do you have six or more drinks on one occasion: Never AUDIT-C Alcohol total score: 0 Non-prescribed substance use: denies use Caffeine: Yes (1 cup coffee daily) service: No Exam Narrative: Exam Narrative: Vital signs as noted above. In general, an alert, nontoxic elderly woman. Head: Normocephalic, atraumatic. Eyes: Pupils are equal reactive. Extraocular movements are full. Conjunctivae are normal. No scleral icterus. ENT: Mucous membranes are moist. Throat is normal. Neck: Supple without lymphadenopathy. Heart: Regular rate and rhythm. No murmur or rub. Lungs: Clear bilaterally. No increased work of breathing, crackles or wheezes. No CVA tenderness. Abdomen: Soft and nontender. Nondistended. No organomegaly. Bowel sounds present. Extremities: Well perfused. No edema. No calf tenderness. Pulses intact. Neurologic: Patient is alert and oriented to person and place. Speech is fluent. Face is symmetric. Moves all extremities equally. Affect: Anxious. Skin: Warm and dry. Well perfused. No rash or lesion. Const: Vital Signs, click to edit/add: Vital Signs - 24 hr 11/27/22 10:28 11/27/22 12:03 11/27/22 12:04 Temperature 99.3 F Pulse Rate 74 74 Pulse Rate [Pulse Oximeter] 89 Respiratory Rate 18 Blood Pressure 151/83 H Blood Pressure [Ri ght Upper Arm] 153/85 H Pulse Oximetry 97 97 98 Oxygen Delivery Me thod Room Air 11/27/22 12:15 11/27/22 12:30 11/27/22 12:32 Temperature Pulse Rate 77 84 77 Pulse Rate [Pulse Oximeter] Respiratory Rate Blood Pressure 158/87 H Blood Pressure [Ri ght Upper Arm] Pulse Oximetry 97 98 98 Oxygen Delivery Me thod 11/27/22 12:45 11/27/22 13:00 11/27/22 13:02 Temperature Pulse Rate 81 83 80 Pulse Rate [Pulse Oximeter] Respiratory Rate Blood Pressure 166/86 H Blood Pressure [Ri ght Upper Arm] Pulse Oximetry 97 99 99 Oxygen Delivery Me thod 11/27/22 13:15 11/27/22 13:30 11/27/22 13:32 Temperature Pulse Rate 74 83 83 Pulse Rate [Pulse Oximeter] Respiratory Rate Blood Pressure 155/83 H Blood Pressure [Ri ght Upper Arm] Pulse Oximetry 97 97 97 Oxygen Delivery Me thod 11/27/22 13:45 11/27/22 14:00 11/27/22 14:02 Temperature Pulse Rate 89 80 80 Pulse Rate [Pulse Oximeter] Respiratory Rate Blood Pressure 151/83 H Blood Pressure [Ri ght Upper Arm] Pulse Oximetry 97 95 95 Oxygen Delivery Me thod 11/27/22 14:15 11/27/22 14:30 11/27/22 14:31 Temperature Pulse Rate 76 76 75 Pulse Rate [Pulse Oximeter] Respiratory Rate Blood Pressure 142/79 H Blood Pressure [Ri ght Upper Arm] Pulse Oximetry 95 96 96 Oxygen Delivery Me thod 11/27/22 14:45 11/27/22 15:00 11/27/22 15:01 Temperature Pulse Rate 72 69 72 Pulse Rate [Pulse Oximeter] Respiratory Rate Blood Pressure 140/77 H Blood Pressure [Ri ght Upper Arm] Pulse Oximetry 95 96 96 Oxygen Delivery Me thod 11/27/22 15:15 11/27/22 15:30 11/27/22 15:31 Temperature Pulse Rate 69 69 69 Pulse Rate [Pulse Oximeter] Respiratory Rate Blood Pressure 139/79 Blood Pressure [Ri ght Upper Arm] Pulse Oximetry 96 97 97 Oxygen Delivery Me thod 11/27/22 15:45 11/27/22 16:00 11/27/22 16:02 Temperature Pulse Rate 71 84 83 Pulse Rate [Pulse Oximeter] Respiratory Rate Blood Pressure 130/94 H Blood Pressure [Ri ght Upper Arm] Pulse Oximetry 96 98 96 Oxygen Delivery Me thod 11/27/22 16:15 11/27/22 16:30 11/27/22 16:31 Temperature Pulse Rate 73 72 72 Pulse Rate [Pulse Oximeter] Respiratory Rate Blood Pressure 142/81 H Blood Pressure [Ri ght Upper Arm] Pulse Oximetry 97 97 96 Oxygen Delivery Me thod Documenting provider has reviewed patient's vital signs: yes Course Course Hospital Course: Patient presents with nonbloody diarrhea without significant abdominal pain. Given history of functional diarrhea, this could be related to her previous problems, could be unrelated viral gastroenteritis. In the absence of fever, bloody stools, significant abdominal pain I would doubt a more significant problems such as diverticulitis, colitis, mesenteric ischemia etcetera. Will start with IV fluids, labs. Assuming these are unremarkable, I do not think she likely needs imaging today. Labs show normal white blood cell count, normal hemoglobin, normal platelets. Initial labs are most notable for a sodium which is low at 123, chloride is low at 88. Otherwise electrolytes are unremarkable. CRP is less than 0.5, LFTs are normal, lipase is 58. No evidence of acidosis. She did have 1+ ketones in her urine. Urine is otherwise unremarkable. I discussed options with her, given that her sodium was low discussed whether she would like to be admitted for hyponatremia but she said she would rather go home. Review of her records shows that last time she was here she responded very briskly to L of normal saline. Therefore we ran that in and then rechecked her metabolic panel. Her sodium did come up a little bit, not significantly. It is now 125. Chloride is 94. Other electrolytes remain normal. Again discussed options and she would prefer to go home. We discussed fluid restriction, she can add salt to her food, salt tablets. She would like to return a stool sample, she has not had any bowel movements while here in the ER, notably she has been here for about 5 hours without any diarrhea which is hopefully a good sign. Her did bring up the fact that she regularly uses enemas, which she says are just water, she does this to empty out her rectum she says which she feels empties in completely when she has a bowel movement. She says this is what Dr. Narvaez has suggested she do. She eats and extremely limited diet, apparently she is basically eating white rice, peanut butter jelly sandwiches, check in. She says that she has been limiting her diet and trying to add things in slowly to try and figure out why her digestive system is so problematic. Overall, she probably just needs to continue following with Dr. Narvaez. Will send her home with the kit to return a stool sample, she may return this to her clinic instead in which case I did tell her she needs to contact them so they can order test. If she is feeling worse, has new symptoms such as fever, bloody stools, but persistent vomiting etcetera return at any time to the ER. She did complain of some burning abdominal pain while here and had initially Toradol and then had a little morphine. She is feeling improved at this time. I am sending her home with some Zofran for nausea if needed. Vital Signs Vital signs: Initial Vital Signs Temperature 99.3 F 11/27/22 10:28 Temperature Source Temporal Artery Scan 11/27/22 10:28 Pulse Rate 89 11/27/22 10:28 Pulse Rhythm Regular 11/27/22 10:28 Respiratory Rate 18 11/27/22 10:28 Blood Pressure 153/85 H 11/27/22 10:28 Blood Pressure Mean 107 H 11/27/22 10:28 Blood Pressure Position Supine 11/27/22 10:28 Pulse Oximetry 97 11/27/22 10:28 Oxygen Delivery Method Room Air 11/27/22 10:28 Vital Signs Temperature 99.3 F 11/27/22 10:28 Pulse Rate 89 11/27/22 10:28 Respiratory Rate 18 11/27/22 10:28 Blood Pressure 153/85 H 11/27/22 10:28 Pulse Oximetry 97 11/27/22 10:28 Oxygen Delivery Method Room Air 11/27/22 10:28 Temperature 99.3 F 11/27/22 10:28 Pulse Rate 72 11/27/22 16:31 Respiratory Rate 18 11/27/22 10:28 Blood Pressure 142/81 H 11/27/22 16:31 Pulse Oximetry 96 11/27/22 16:31 Oxygen Delivery Method Room Air 11/27/22 10:28 Medical Decision Making Lab Data Labs: Lab Results 11/27/22 11/27/22 11/27/22 Range/Units 11:20 12:52 14:50 WBC 6.45 (4.50-11.00) K/uL RBC 4.27 (4.00-5.20) m/uL Hgb 12.8 (12.0-16.0) gm/dL Hct 36.7 (33.0-51.0) % MCV 86 (80-100) fL MCH 30 (26-34) pg MCHC 35 (32-36) gm/dL RDW Coeff of Naman 11.8 (11.5-15.5) % Plt Count 360 (140-440) K/uL Neut % (Auto) 73.1 H (42.0-72.0) % Lymph % (Auto) 20.2 (20-44) % Cabell % (Auto) 5.7 (0.0-11.0) % Eos % (Auto) 0.6 (0.0-7.0) % Baso % (Auto) 0.2 (0.0-3.0) % Neut # (Auto) 4.70 (1.7-7.0) K/uL Lymph # (Auto) 1.30 (0.90-2.90) K/uL Cabell # (Auto) 0.40 (0.00-0.90) K/UL Eos # (Auto) 0.04 (0.00-0.50) K/uL Baso # (Auto) 0.01 (0.00-0.30) K/uL Sodium 123 L* 125 L (135-149) mmol/L Potassium 4.2 4.6 (3.6-5.1) mmol/L Chloride 88 L 94 L (96-114) mmol/L Carbon Dioxide 25 26 (20-32) mmol/L BUN 6 L 6 L (7-30) mg/dL Creatinine 0.8 0.7 (0.5-1.5) mg/dL Estimated Creat Clear 46.13 46.13 Estimated GFR 81 95 ml/min Glucose 90 89 (60-115) mg/dL Lactate 0.7 (0.5-1.9) mmol/L Calcium 9.1 8.4 (8.4-10.6) mg/dL Total Bilirubin 0.5 (0.1-1.5) mg/dL Direct Bilirubin 0.3 (0.0-0.5) mg/dL AST 22 (12-35) U/L ALT 16 (4-35) U/L Alkaline Phosphatase 63 (40-150) U/L C-Reactive Protein < 0.5 L (0.5-1.0) mg/dL Total Protein 7.1 (6.0-8.3) g/dL Albumin 4.5 (3.3-5.0) g/dL Lipase 58 (23-300) U/L Urine Color Yellow (Yellow) Urine Appearance Clear (Clear) Urine pH 6.0 (5.0-8.5) Ur Specific Imperial 1.015 (1.000-1.030) Urine Protein Negative (Negative) Urine Glucose (UA) Negative (Negative) Urine Ketones 1+ A (Negative) Urine Blood Negative (Negative) Urine Nitrite Negative (Negative) Urine Bilirubin Negative (Negative) Urine Urobilinogen 0.2 (0.2-1.0) Ur Leukocyte Esterase Trace A (Negative) Urine RBC 0-2 (0-2) Urine WBC 0-2 (0-5) Ur Squamous Epith Cells Few (None-Few) Urine Bacteria None (None) Discharge Plan Discharge Clinical Impression: Diarrhea, Hyponatremia Patient Disposition: Home, Self-Care Condition: Improved Instructions: Hyponatremia (ED), Acute Diarrhea (ED) Additional Instructions: You can return a stool sample if you continue to have diarrhea as discussed. If you choose to return at your clinic, your doctor will need to order tests at your clinic. Return for bloody stools, fever, severe abdominal pain. Avoid significant free water consumption. You can add salt to your food or use salt tablets for a few days to increase your sodium. Restrict fluids to about 1200 mL a day. Primary care follow-up early next week for re-evaluation, recheck sodium. Prescriptions: No Action melatonin 5 mg capsule 5 mg PO .hs PRN diphenhydramine HCl [Allergy (diphenhydramine)] 25 mg tablet 25 mg PO QID PRN lorazepam 0.5 mg tablet 0.5 mg PO TID PRN Patient Comments: TAKE ONE TABLET BY MOUTH (0.5MG) BY MOUTH 3 TIMES DAILY IF NEEDED FOR ANXIETY. levothyroxine 112 mcg tablet 112 mcg PO DAILY Patient Comments: TAKE 1 TABLET (112 MCG) BY MOUTH BEFORE BREAKFAST. ibuprofen [Advil] 200 mg tablet 400 mg PO .Q4-QH PRN levocetirizine [24HR Allergy Relief] 5 mg tablet 5 mg PO BID diphenoxylate-atropine [Lomotil] 2.5-0.025 mg tablet 1 tab PO DAILY Qty: 10 0RF amlodipine 5 mg tablet 5 mg PO DAILY cholecalciferol (vitamin D3) 125 mcg (5,000 unit) tablet 125 mcg PO DAILY Follow Up/Referrals: Crista Baird DO [Primary Care Provider] - Stand Alone Forms: [employer] Info Instructions
[2022-11-27 11:59] LABS: C Reactive Protein* < 0.5 mg/dL (0.5-1.0); Sodium* 123 mmol/L (135-149)
--- NOTE | 2022-11-27 12:02 | ED.NURSE ---
This board writer notified pt's sodium by lab, critical at 123. Dr. Marshall notified.
[2022-11-27] MEDS: KETOROLAC 15 MG/ML inj IVP (12:32)
[2022-11-27 13:10] LABS: Appearance Urine Clear (Clear); Bilirubin Urine Negative (Negative); Blood Urine Negative (Negative); Color Urine Yellow (Yellow); Glucose Urine Negative (Negative); Ketones Urine 1+ (Negative); Leukocyte Esterase Urine Trace (Negative); Nitrite Urine Negative (Negative); Protein Urine Negative (Negative); Specific Gravity Urine 1.015 (1.000-1.030); Urobilinogen Urine 0.2 (0.2-1.0)
[2022-11-27 13:20] LABS: RBC Urine 0-2 (0-2); Squamous Epithelial Cell Urine Few (None-Few); WBC Urine 0-2 (0-5)
[2022-11-27] MEDS: MORPHINE 4 MG/ML INJ IVP (13:49)
--- NOTE | 2022-11-27 13:59 | ED.NURSE ---
reported that tania has been giving herself enemas at home due to the feeling of not completely emptied, this has been going on for the last year-minimally 2 times a week.
[2022-11-27 15:17] LABS: Chloride* 94 mmol/L (96-114); Potassium* 4.6 mmol/L (3.6-5.1); Sodium* 125 mmol/L (135-149)
[2022-11-27 15:20] LABS: Blood Urea Nitrogen* 6 mg/dL (7-30); Calcium* 8.4 mg/dL (8.4-10.6); Carbon Dioxide* 26 mmol/L (20-32); Creatinine* 0.7 mg/dL (0.5-1.5); Est. Creatinine Clearance* 46.13; Estimated Glomerular Filt Rate 95 ml/min; Glucose* 89 mg/dL (60-115)
[2022-12-01 10:44] LABS: C.Difficile Negative (Negative); CDIFFEPI 027 PRESUMPTIVE NEGATIVE (Negative)
== END 2022-11-27 16:47 | disposition home or self-care (01) ==
PROVIDERS: Emergency Provider Emergency Medicine; PCP Family Medicine
DX: R19.7 Diarrhea, unspecified (principal); E87.1 Hypo-osmolality and hyponatremia
CPT/HCPCS: 36415; 80048; 80076; 81001; 83605; 83690; 85025; 86140; 87493; 93005; 96361; 96374; 96375; 99284; J1885; J2270; J2405; J7030

== ENCOUNTER 2023-02-12 05:12 | Emergency (ER) | payer MEDICARE, BC, SELFPAY ==
[2023-02-12 05:22] VITALS: BP 146/96; PULSE 83; RESP 20; TEMP 35.9; O2SAT 97
[2023-02-12 06:08] LABS: Chloride* 101 mmol/L (96-114); Potassium* 4.1 mmol/L (3.6-5.1); Sodium* 135 mmol/L (135-149)
[2023-02-12 06:09] LABS: Basophils Absolute Auto 0.03 K/uL (0.00-0.30); Basophils Percent Auto 0.5 % (0.0-3.0); Eosinophils Absolute Auto 0.11 K/uL (0.00-0.50); Eosinophils Percent Auto 1.7 % (0.0-7.0); Hematocrit 38.6 % (33.0-51.0); Hemoglobin* 12.8 gm/dL (12.0-16.0); Immature Granulocytes Abs Auto 0.03 K/uL (0.00-0.30); Immature Granulocytes Pct Auto 0.5 %; Lymphocytes Absolute Auto 2.76 K/uL (0.90-2.90); Lymphocytes Percent Auto 41.6 % (20-44); Mean Corpuscular HGB Conc 33 gm/dL (32-36); Mean Corpuscular Hemoglobin 30 pg (26-34); Mean Corpuscular Volume 90 fL (80-100); Monocytes Percent Auto 9.3 % (0.0-11.0); Neutrophils Absolute Auto 3.09 K/uL (1.7-7.0); Neutrophils Percent Auto 46.4 % (42.0-72.0); Platelet Count* 426 K/uL (140-440); RDW Coefficient of Variation % 12.8 % (11.5-15.5); Red Blood Count 4.28 m/uL (4.00-5.20); Slide Review Reflex No; White Blood Count* 6.64 K/uL (4.50-11.00)
--- OUTSIDE RECORDS SUMMARY | 2023-02-12 06:09 | XMS_ITS | Continuity of Care Document ---
Author Name Unknown Organization [facility] Address [address] [address] [place] [address] Phone Care Team Providers Care Compress Trucker Name Role Phone No Information Unavailable Unavailable Allergies, Adverse Reactions, Alerts Substance Reaction Status Criticality GELATIN CAPSULES (EMPTY) Adverse reaction Active No Information Medications Medication Instructions Dosage Effective Dates (start - stop) Status Comments Synthroid 88 mcg tablet take 1 tablet by oral route every day 88 MCG - Active lorazepam 0.5 mg tablet take 1 tablet by oral route every day as needed 0.5 MG - Active 5-HTP (unknown strength) Not Available - Active Herbal medications/supplem ents (unknown strength) Xymozyme Not Available - Active Benadryl Allergy 25 mg tablet take 1 tablet by oral route every day as needed 25 MG - Active PROBIOTIC (unknown strength) take 1 capsule by oral route every day Not Available - Active ibuprofen 200 mg capsule take 1 capsule by oral route every 4 hours as needed 200 MG - Active Herbal medications/supplem ents (unknown strength) ProbioMax Sb DF probiotic 1 daily Not Available - Active Herbal medications/supplem ents (unknown strength) Qcercetin Not Available - Active desipramine 25 mg tablet take 1 tablet by oral route every bedtime 25 MG - Active FDgard 25 mg-20.75 mg ORAL CAPSULE 2 capsules by mouth twice per day - Active Procedures Procedure Date Offic/outpt E&m [facility] Advance Directives Directive Yes / No Effective Date File Name No Information Encounters Encounter Description Practice Location Reason(s) For Visit Diagnoses Date Provider Providers Copied on Encounter [facility], [address] [address], [place], [place], [id number], [place] tel:[phone] No Information No Information Offic/outpt E&m [facility], [address] [address], [place], [place], [id number], [place] tel:[phone] [facility] GI Symptoms or Concerns (chief complaint) Generalized abdominal painChange in bowel habits [address] [facility], [facility] [address], [place], [place], [id number], [place]. tel:[phone] Referring Provider: Enrrique Haas MD , [address] [place] [address], [place], [address]. tel:[phone] Family History Family Member Type Diagnosis Age At Onset Sister Problem (finding) asthma Mother Problem (finding) Thyroid disorder Daughter Problem (finding) Alive and well Father Problem (finding) Cancer-Bone Mother Problem (finding) Throat CA Sister Problem (finding) Thyroid disorder Brother Problem (finding) Alive and well Mother Problem (finding) Breast CA Son Problem (finding) Alive and well Payers Payer name Insurance type Covered green party ID Authoriza tion(s) No Information Social History Type Description Quantity Date Captured Comments Sex Female Smoking Status No Information Chief Complaint And Reason For Visit No Information Reason For Referral Reason For Referral No Information History Of Present Illness Encounter Date Complaint History Of Prese nt Illness GI Symptoms or Concerns Blanquita lynn is a 63-year-old woman with a complicated GI history and also anxiety, history of hysterectomy, thyroid disease, and hernia repair who presents for ongoing GI symptoms most significantly recently is abdominal pain and relative constipation. She is sent by her primary care provider, Enrrique Haas.Blanquita tells me that she has been having GI issues for the last 3 years. Initially, this began as diarrhea and she was treated at [facility] where she had a colonoscopy, which was reportedly normal with repeat recommended in 10 years. I do not have this result, but presumably they did workup for diarrhea at that time. She does not recall exactly what treatments were used at that point, but that she may have been treated for constipation and possibly for irritable bowel syndrome at that time. She did do stool testing, which was negative for any sort of infection. She was seen at [facility] about 2-1/2 years ago and had an upper endoscopy, which she reports was norm Functional Status Date Functional Assessmen t No Information Instructions Date Instruction Additional Infor mation No Information Assessments Type Assessment Date No Information Patient Care Teams Name Effective Dates (start - stop) Status Members No Information
[2023-02-12 06:11] LABS: Blood Urea Nitrogen* 12 mg/dL (7-30); Carbon Dioxide* 26 mmol/L (20-32); Creatinine* 0.9 mg/dL (0.5-1.5); Estimated Glomerular Filt Rate 70 ml/min
[2023-02-12 06:12] LABS: Calcium* 9.2 mg/dL (8.4-10.6); Glucose* 98 mg/dL (60-115)
[2023-02-12 06:15] LABS: C Reactive Protein* < 0.5 mg/dL (0.5-1.0)
[2023-02-12] MEDS: 0.9 % SODIUM CHLORIDE 1000 ml 1,000 ML 500 ML IV (06:17)
[2023-02-12] MEDS: DIPHENOXYLATE-ATROP 2.5-0.025 TABLET 2 TAB PO (06:21)
--- NOTE | 2023-02-12 06:55 | ED.GENADULT ---
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 She has gone 4-5 times already this morning. The diarrhea has been intermittent for the past five days. She took some Imodium that did seem to help for a day or so. No nausea or vomiting. She is staying hydrated by drinking Pedialyte. She has a history of hyponatremia. She has been to the ER at least three other times with this same concern and no cause is ever been found. It is felt to be related to irritable bowel. No recent travel. No recent antibiotic use. No black or bloody stools. She has done stool studies on several occasions, always with negative results. Related Data Home Medications Medication Instructions Recorded Confirmed diphenhydramine HCl 25 mg tablet 25 mg PO QID PRN 03/12/22 02/12/23 (Allergy (diphenhydramine)) levothyroxine 112 mcg tablet 112 mcg PO DAILY 03/12/22 02/12/23 lorazepam 0.5 mg tablet 0.5 mg PO TID PRN 03/12/22 02/12/23 ibuprofen 200 mg tablet (Advil) 400 mg PO .Q4-QH PRN 03/26/22 07/13/22 levocetirizine 5 mg tablet (24HR 5 mg PO BID 03/26/22 02/12/23 Allergy Relief) melatonin 5 mg capsule 5 mg PO .hs PRN 03/26/22 07/13/22 amlodipine 5 mg tablet 5 mg PO DAILY 07/13/22 02/12/23 cholecalciferol (vitamin D3) 125 125 mcg PO DAILY 07/14/22 02/12/23 mcg (5,000 unit) tablet Previous Rx's Medication Instructions Recorded diphenoxylate-atropine 2.5 1 tab PO DAILY #10 tabs 09/02/22 mg-0.025 mg tablet (Lomotil) diphenoxylate-atropine 2.5 1 tab PO TID PRN diarrhea #20 tabs 02/12/23 mg-0.025 mg tablet (Lomotil) Allergies Allergy/AdvReac Type Severity Reaction Status Date / Time red dye Allergy Verified 02/12/23 05:22 gelatin AdvReac Mild GI upset- Verified 02/12/23 05:22 gelatin capsules acetaminophen [From Tylenol] AdvReac Unknown Verified 02/12/23 05:22 Review of Systems Narrative: Review of systems is as outlined above otherwise noted to be negative. 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 - Mast cell activation, unspecified (ICD-10) Benzodiazepine dependence ?F13.20 - Sedative, hypnotic or anxiolytic dependence, uncomplicated (ICD-10) Protein calorie malnutrition ?E46 - Unspecified protein-calorie malnutrition (ICD-10) Normal colonoscopy Dysthymic disorder ?F34.1 - Dysthymic disorder (ICD-10) Hyperlipidemia ?E78.5 - Hyperlipidemia, unspecified (ICD-10) Menopausal symptoms ?N95.1 - Menopausal and female climacteric states (ICD-10) Ganglion cyst ?M67.40 - Ganglion, unspecified site (ICD-10) History of migraine ?Z86.69 - Personal history of other diseases of the nervous system and sense organs (ICD-10) Functional diarrhea ?K59.1 - Functional diarrhea (ICD-10) Depression ?F32.A - Depression, unspecified (ICD-10) Chronic pain ?G89.29 - Other chronic pain (ICD-10) History of Clostridioides difficile infection (2012) ?Z86.19 - Personal history of other infectious and parasitic diseases (ICD-10) Seasonal allergies ?J30.2 - Other seasonal allergic rhinitis (ICD-10) Hypothyroidism ?E03.9 - Hypothyroidism, unspecified (ICD-10) Pelvic floor dysfunction ?M62.89 - Other specified disorders of muscle (ICD-10) Anxiety ?F41.9 - Anxiety disorder, unspecified (ICD-10) Surgical History History of vaginal hysterectomy (05/2005) ?Z90.710 - Acquired absence of both cervix and uterus (ICD-10) History of carpal tunnel surgery of left wrist (04/23/09) ?Z98.890 - Other specified postprocedural states (ICD-10) History of hernia repair (06/07/18) ?Z98.890 - Other specified postprocedural states (ICD-10) ?Z87.19 - Personal history of other diseases of the digestive system (ICD-10) Family History Sister Asthma Hypothyroidism Father Jaw cancer Mother Thyroid cancer Breast cancer Stroke Grandfather Coronary artery disease Grandmother Myocardial infarction Grandfather Leukemia Social History Narrative: . was here with her earlier. Denies tobacco, EtOH, or recreational drug use. FULL CODE. Highest level of school completed/degree received: Bachelor's degree Smoking Status: Never smoker Do you use any of these nicotine containing products: None Second hand tobacco smoke exposure: No How often do you have a drink containing alcohol: never How often do you have six or more drinks on one occasion: Never AUDIT-C Alcohol total score: 0 Non-prescribed substance use: denies use Caffeine: Yes (1 cup coffee daily) service: No Exam Narrative: Exam Narrative: Vitals noted. HEENT: Conjunctiva clear. Neck is supple without adenopathy, thyromegaly. Lungs: Clear to auscultation in all [place]. No wheezes, rales, rhonchi. Heart: Regular rate and rhythm without murmur. Abdomen: Soft and nontender. No guarding, rigidity, rebound. Bowel sounds are normal. No palpable masses. Extremities: No cyanosis or edema. Good distal pulses. Skin: No abnormalities noted of the exposed skin. Neurologic: Awake, alert, fully oriented. Neurologic exam is nonfocal. Const: Vital Signs, click to edit/add: Vital Signs - 24 hr 02/12/23 05:22 Temperature 96.6 F L Pulse Rate [Pulse Oximeter] 83 Respiratory Rate 20 Blood Pressure [Ri ght Upper Arm] 146/96 H Pulse Oximetry 97 Oxygen Delivery Me thod Room Air Course Course Hospital Course: Patient seen and examined. Labs are ordered. He is given a L of normal saline. She Is also given Lomotil two tablets. Reevaluation(s) Reevaluation #1: CBC, BMP, CRP are all normal. Vital Signs Vital signs: Initial Vital Signs Temperature 96.6 F L 02/12/23 05:22 Temperature Source Temporal Artery Scan 02/12/23 05:22 Pulse Rate 83 02/12/23 05:22 Pulse Rhythm Regular 02/12/23 05:22 Respiratory Rate 20 02/12/23 05:22 Blood Pressure 146/96 H 02/12/23 05:22 Blood Pressure Mean 112 H 02/12/23 05:22 Pulse Oximetry 97 02/12/23 05:22 Oxygen Delivery Method Room Air 02/12/23 05:22 Vital Signs Temperature 96.6 F L 02/12/23 05:22 Pulse Rate 83 02/12/23 05:22 Respiratory Rate 20 02/12/23 05:22 Blood Pressure 146/96 H 02/12/23 05:22 Pulse Oximetry 97 02/12/23 05:22 Oxygen Delivery Method Room Air 02/12/23 05:22 Temperature 96.6 F L 02/12/23 05:22 Pulse Rate 83 02/12/23 05:22 Respiratory Rate 20 02/12/23 05:22 Blood Pressure 146/96 H 02/12/23 05:22 Pulse Oximetry 97 02/12/23 05:22 Oxygen Delivery Method Room Air 02/12/23 05:22 Medical Decision Making Lab Data Labs: Lab Results 02/12/23 Range/Units 05:30 WBC 6.64 (4.50-11.00) K/uL RBC 4.28 (4.00-5.20) m/uL Hgb 12.8 (12.0-16.0) gm/dL Hct 38.6 (33.0-51.0) % MCV 90 (80-100) fL MCH 30 (26-34) pg MCHC 33 (32-36) gm/dL RDW Coeff of Naman 12.8 (11.5-15.5) % Plt Count 426 (140-440) K/uL Neut % (Auto) 46.4 (42.0-72.0) % Lymph % (Auto) 41.6 (20-44) % [place] % (Auto) 9.3 (0.0-11.0) % Eos % (Auto) 1.7 (0.0-7.0) % Baso % (Auto) 0.5 (0.0-3.0) % Neut # (Auto) 3.09 (1.7-7.0) K/uL Lymph # (Auto) 2.76 (0.90-2.90) K/uL [place] # (Auto) 0.60 (0.00-0.90) K/UL Eos # (Auto) 0.11 (0.00-0.50) K/uL Baso # (Auto) 0.03 (0.00-0.30) K/uL Abs Immat Gran (auto) 0.03 (0.00-0.30) K/uL Imm/Tot Granulo (auto) 0.5 % Sodium 135 (135-149) mmol/L Potassium 4.1 (3.6-5.1) mmol/L Chloride 101 (96-114) mmol/L Carbon Dioxide 26 (20-32) mmol/L BUN 12 (7-30) mg/dL Creatinine 0.9 (0.5-1.5) mg/dL Estimated GFR 70 ml/min Glucose 98 (60-115) mg/dL Calcium 9.2 (8.4-10.6) mg/dL C-Reactive Protein < 0.5 L (0.5-1.0) mg/dL Discharge Plan Discharge Clinical Impression: Diarrhea Patient Disposition: Home, Self-Care Condition: Improved Additional Instructions: Push fluids, high-fiber diet, Lomotil one tablet 3 times daily as needed. Follow-up with your PCP if still having loose stools in another three or four days. Prescriptions: New diphenoxylate-atropine [Lomotil] 2.5-0.025 mg tablet 1 tab PO TID PRN (Reason: diarrhea) Qty: 20 0RF No Action melatonin 5 mg capsule 5 mg PO .hs PRN diphenhydramine HCl [Allergy (diphenhydramine)] 25 mg tablet 25 mg PO QID PRN lorazepam 0.5 mg tablet 0.5 mg PO TID PRN Patient Comments: TAKE ONE TABLET BY MOUTH (0.5MG) BY MOUTH 3 TIMES DAILY IF NEEDED FOR ANXIETY. levothyroxine 112 mcg tablet 112 mcg PO DAILY Patient Comments: TAKE 1 TABLET (112 MCG) BY MOUTH BEFORE BREAKFAST. ibuprofen [Advil] 200 mg tablet 400 mg PO .Q4-QH PRN levocetirizine [24HR Allergy Relief] 5 mg tablet 5 mg PO BID diphenoxylate-atropine [Lomotil] 2.5-0.025 mg tablet 1 tab PO DAILY Qty: 10 0RF amlodipine 5 mg tablet 5 mg PO DAILY cholecalciferol (vitamin D3) 125 mcg (5,000 unit) tablet 125 mcg PO DAILY Follow Up/Referrals: Crista Baird DO [Primary Care Provider] - Stand Alone Forms: [employer] Info Instructions
== END 2023-02-12 07:16 | disposition home or self-care (01) ==
PROVIDERS: Emergency Provider Family Medicine; PCP Family Medicine
DX: R19.7 Diarrhea, unspecified (principal)
CPT/HCPCS: 36415; 80048; 85025; 86140; 99282; 99283; A9270; J7030

== ENCOUNTER 2023-03-07 15:20 | Emergency (ER) | payer MEDICARE, BC, SELFPAY ==
[2023-03-07 15:42] VITALS: BP 123/84; PULSE 103; RESP 24; TEMP 36.6; O2SAT 96; BMI 17.0
--- NOTE | 2023-03-07 17:21 | ED.NAVMDI ---
HPI - Nausea/Vomiting/Diarrhea General Time Seen by Provider: 16:40 Date Seen: 03/07/23 Chief complaint: Diarrhea Stated complaint: Diarrhea Time Seen by Provider: 03/07/23 16:53 Source: patient, family, RN notes reviewed and old records reviewed Mode of arrival: ambulatory Limitations: no limitations History of Present Illness HPI Narrative: 67-year-old female who comes in with abdominal pain and diarrhea. This is been a longstanding problem, prior emergency department visits in November in January for similar symptoms. In November, sodium was 125. Patient's current episode started yesterday with mucous diarrhea and liquid stools, no blood, lid burning left lower quadrant pain which is usual for her when she has diarrhea or low sodium. She denies vomiting, is tolerating oral intake predominantly Pedialyte mixed with water. She denies chest pain. She has had a colonoscopy which by her report was negative. Seen multiple physicians for this including emergency department visits and Gastroenterology, is scheduled to be evaluated at the [facility]. Reports significant weight loss since last year. Related Data Home Medications Medication Instructions Recorded Confirmed diphenhydramine HCl 25 mg tablet 25 mg PO QID PRN 03/12/22 02/12/23 (Allergy (diphenhydramine)) levothyroxine 112 mcg tablet 112 mcg PO DAILY 03/12/22 02/12/23 lorazepam 0.5 mg tablet 0.5 mg PO TID PRN 03/12/22 02/12/23 ibuprofen 200 mg tablet (Advil) 400 mg PO .Q4-QH PRN 03/26/22 07/13/22 levocetirizine 5 mg tablet (24HR 5 mg PO BID 03/26/22 02/12/23 Allergy Relief) melatonin 5 mg capsule 5 mg PO .hs PRN 03/26/22 07/13/22 amlodipine 5 mg tablet 5 mg PO DAILY 07/13/22 02/12/23 cholecalciferol (vitamin D3) 125 125 mcg PO DAILY 07/14/22 02/12/23 mcg (5,000 unit) tablet Previous Rx's Medication Instructions Recorded diphenoxylate-atropine 2.5 1 tab PO DAILY #10 tabs 09/02/22 mg-0.025 mg tablet (Lomotil) diphenoxylate-atropine 2.5 1 tab PO TID PRN diarrhea #20 tabs 02/12/23 mg-0.025 mg tablet (Lomotil) Allergies Allergy/AdvReac Type Severity Reaction Status Date / Time red dye Allergy Verified 02/12/23 05:22 gelatin AdvReac Mild GI upset- Verified 02/12/23 05:22 gelatin capsules acetaminophen [From Tylenol] AdvReac Unknown Verified 02/12/23 05:22 PFSH [facility] Medical History 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 - Mast cell activation, unspecified (ICD-10) Benzodiazepine dependence ?F13.20 - Sedative, hypnotic or anxiolytic dependence, uncomplicated (ICD-10) Protein calorie malnutrition ?E46 - Unspecified protein-calorie malnutrition (ICD-10) Normal colonoscopy Dysthymic disorder ?F34.1 - Dysthymic disorder (ICD-10) Hyperlipidemia ?E78.5 - Hyperlipidemia, unspecified (ICD-10) Menopausal symptoms ?N95.1 - Menopausal and female climacteric states (ICD-10) Ganglion cyst ?M67.40 - Ganglion, unspecified site (ICD-10) History of migraine ?Z86.69 - Personal history of other diseases of the nervous system and sense organs (ICD-10) Functional diarrhea ?K59.1 - Functional diarrhea (ICD-10) Depression ?F32.A - Depression, unspecified (ICD-10) Chronic pain ?G89.29 - Other chronic pain (ICD-10) History of Clostridioides difficile infection (2012) ?Z86.19 - Personal history of other infectious and parasitic diseases (ICD-10) Seasonal allergies ?J30.2 - Other seasonal allergic rhinitis (ICD-10) Hypothyroidism ?E03.9 - Hypothyroidism, unspecified (ICD-10) Pelvic floor dysfunction ?M62.89 - Other specified disorders of muscle (ICD-10) Anxiety ?F41.9 - Anxiety disorder, unspecified (ICD-10) Surgical History History of vaginal hysterectomy (05/2005) ?Z90.710 - Acquired absence of both cervix and uterus (ICD-10) History of carpal tunnel surgery of left wrist (04/23/09) ?Z98.890 - Other specified postprocedural states (ICD-10) History of hernia repair (06/07/18) ?Z98.890 - Other specified postprocedural states (ICD-10) ?Z87.19 - Personal history of other diseases of the digestive system (ICD-10) Family History Sister Asthma Hypothyroidism Father Jaw cancer Mother Thyroid cancer Breast cancer Stroke Grandfather Coronary artery disease Grandmother Myocardial infarction Grandfather Leukemia Social History Narrative: . was here with her earlier. Denies tobacco, EtOH, or recreational drug use. FULL CODE. Highest level of school completed/degree received: Bachelor's degree Smoking Status: Never smoker Do you use any of these nicotine containing products: None Second hand tobacco smoke exposure: No How often do you have a drink containing alcohol: never How often do you have six or more drinks on one occasion: Never AUDIT-C Alcohol total score: 0 Non-prescribed substance use: denies use Caffeine: Yes (1 cup coffee daily) service: No Exam Narrative: Exam Narrative: General: Well-developed and well-nourished, no acute distress, cachectic, appears anxious Head: Atraumatic and normocephalic Eyes: Pupils are equal reactive, extraocular motions intact, conjunctiva clear ENT: External nose and ears are normal, posterior pharynx without erythema or exudate Neck: No midline cervical tenderness, full spontaneous range of motion the neck, trachea midline, no adenopathy Heart: Regular rate and rhythm no murmurs or thrills Lungs: Clear to auscultation bilaterally without wheezes or crackles Abdomen: Soft, nontender, nondistended with active bowel sounds Musculoskeletal: No tenderness, deformity, or edema Neurologic: Awake, alert, and oriented x3, no gross focal neurologic deficits, cranial nerves intact as tested Psych: Mood and affect are appropriate Skin: No rashes Const: Vital Signs, click to edit/add: Vital Signs - 24 hr 03/07/23 15:42 03/07/23 18:06 Temperature 98 F Pulse Rate [Pulse Oximeter] 103 H 76 Respiratory Rate 24 10 L Blood Pressure [Ri ght Upper Arm] 123/84 152/83 H Pulse Oximetry 96 98 Oxygen Delivery Me thod Room Air Course Course Hospital Course: Patient seen and examined, prior records are reviewed. Patient presents today with diarrhea and left lower quadrant abdominal pain. Multiple prior emergency department and specialty evaluations for this in the past. Currently is on a restricted diet. On exam, cachectic, vital a stable although anxious appearing. No abdominal tenderness. Initially ordered a CT scan for evaluation based on triage complaint, however based on history and after discussing with patient, this is canceled as patient's diarrhea is chronic and her abdominal pain is not reproducible, patient has had imaging in the past which has not revealed source of symptoms. Labs ordered along with IV fluids and Toradol to help with pain. Anticipate symptom management, correction of electrolytes after needed, and discharge. Reevaluation(s) Time of Reevaluation #1: 18:07 Reevaluation #1: Labs independently interpreted by me, CBC is reassuring, basic panel with mild hyponatremia, otherwise no acute findings. Patient received one liter of normal saline in the emergency department. Given chronic diarrhea and mild hyponatremia, patient is stable for follow-up as an outpatient with primary care, Gastroenterology, as well as [facility] program as scheduled. Considering chronic diarrhea and hyponatremia, consider laxative abuse although patient and spouse but denied this. Also consider SIADH which can be evaluated as an outpatient. Psychogenic polydipsia also possible and free water intake should be restricted. Vital Signs Vital signs: Initial Vital Signs Temperature 98 F 03/07/23 15:42 Temperature Source Temporal Artery Scan 03/07/23 15:42 Pulse Rate 103 H 03/07/23 15:42 Pulse Rhythm Regular 03/07/23 15:42 Respiratory Rate 24 03/07/23 15:42 Blood Pressure 123/84 03/07/23 15:42 Blood Pressure Mean 97 03/07/23 15:42 Blood Pressure Position Sitting 03/07/23 15:42 Pulse Oximetry 96 03/07/23 15:42 Oxygen Delivery Method Room Air 03/07/23 15:42 Vital Signs Temperature 98 F 03/07/23 15:42 Pulse Rate 103 H 03/07/23 15:42 Respiratory Rate 24 03/07/23 15:42 Blood Pressure 123/84 03/07/23 15:42 Pulse Oximetry 96 03/07/23 15:42 Oxygen Delivery Method Room Air 03/07/23 15:42 Temperature 98 F 03/07/23 15:42 Pulse Rate 76 03/07/23 18:06 Respiratory Rate 10 L 03/07/23 18:06 Blood Pressure 152/83 H 03/07/23 18:06 Pulse Oximetry 98 03/07/23 18:06 Oxygen Delivery Method Room Air 03/07/23 15:42 MDM - Nausea/Vomiting/Diarrhea Lab Data Labs: Lab Results 03/07/23 03/07/23 Range/Units 17:40 17:45 WBC 7.91 (4.50-11.00) K/uL RBC 4.34 (4.00-5.20) m/uL Hgb 13.0 (12.0-16.0) gm/dL Hct 38.3 (33.0-51.0) % MCV 88 (80-100) fL MCH 30 (26-34) pg MCHC 34 (32-36) gm/dL RDW Coeff of Naman 11.9 (11.5-15.5) % Plt Count 390 (140-440) K/uL Neut % (Auto) 57.3 (42.0-72.0) % Lymph % (Auto) 33.9 (20-44) % [place] % (Auto) 6.7 (0.0-11.0) % Eos % (Auto) 1.3 (0.0-7.0) % Baso % (Auto) 0.4 (0.0-3.0) % Neut # (Auto) 4.54 (1.7-7.0) K/uL Lymph # (Auto) 2.68 (0.90-2.90) K/uL [place] # (Auto) 0.50 (0.00-0.90) K/UL Eos # (Auto) 0.10 (0.00-0.50) K/uL Baso # (Auto) 0.03 (0.00-0.30) K/uL Abs Immat Gran (auto) 0.03 (0.00-0.30) K/uL Imm/Tot Granulo (auto) 0.4 % Sodium 130 L (135-149) mmol/L Potassium 3.9 (3.6-5.1) mmol/L Chloride 93 L (96-114) mmol/L Carbon Dioxide 28 (20-32) mmol/L BUN 14 (7-30) mg/dL Creatinine 0.9 (0.5-1.5) mg/dL Estimated Creat Clear 39.87 Estimated GFR 70 ml/min Glucose 90 (60-115) mg/dL Calcium 9.4 (8.4-10.6) mg/dL Magnesium 1.8 (1.5-2.6) mg/dL Discharge Plan Discharge Clinical Impression: Chronic abdominal pain, Chronic diarrhea, Acute hyponatremia Patient Disposition: Home w/ Parent or Adult Condition: Stable Instructions: Hyponatremia (ED), Abdominal Pain (ED) Additional Instructions: Avoid intake of too much free water, continue to use electrolytes for fluid replacement. Advanced diet as tolerated. You may take Imodium for diarrhea. Prescriptions: No Action melatonin 5 mg capsule 5 mg PO .hs PRN diphenhydramine HCl [Allergy (diphenhydramine)] 25 mg tablet 25 mg PO QID PRN lorazepam 0.5 mg tablet 0.5 mg PO TID PRN Patient Comments: TAKE ONE TABLET BY MOUTH (0.5MG) BY MOUTH 3 TIMES DAILY IF NEEDED FOR ANXIETY. levothyroxine 112 mcg tablet 112 mcg PO DAILY Patient Comments: TAKE 1 TABLET (112 MCG) BY MOUTH BEFORE BREAKFAST. ibuprofen [Advil] 200 mg tablet 400 mg PO .Q4-QH PRN levocetirizine [24HR Allergy Relief] 5 mg tablet 5 mg PO BID diphenoxylate-atropine [Lomotil] 2.5-0.025 mg tablet 1 tab PO DAILY Qty: 10 0RF amlodipine 5 mg tablet 5 mg PO DAILY cholecalciferol (vitamin D3) 125 mcg (5,000 unit) tablet 125 mcg PO DAILY diphenoxylate-atropine [Lomotil] 2.5-0.025 mg tablet 1 tab PO TID PRN (Reason: diarrhea) Qty: 20 0RF Follow Up/Referrals: Crista Baird DO [Primary Care Provider] - Stand Alone Forms: [employer] Info Instructions
[2023-03-07] MEDS: 0.9 % SODIUM CHLORIDE 1000 ml 1,000 ML IV (17:44)
[2023-03-07] MEDS: KETOROLAC 15 MG/ML inj IVP (17:45)
[2023-03-07 17:51] LABS: Basophils Absolute Auto 0.03 K/uL (0.00-0.30); Basophils Percent Auto 0.4 % (0.0-3.0); Eosinophils Percent Auto 1.3 % (0.0-7.0); Hematocrit 38.3 % (33.0-51.0); Immature Granulocytes Abs Auto 0.03 K/uL (0.00-0.30); Immature Granulocytes Pct Auto 0.4 %; Lymphocytes Absolute Auto 2.68 K/uL (0.90-2.90); Lymphocytes Percent Auto 33.9 % (20-44); Mean Corpuscular HGB Conc 34 gm/dL (32-36); Mean Corpuscular Hemoglobin 30 pg (26-34); Mean Corpuscular Volume 88 fL (80-100); Monocytes Percent Auto 6.7 % (0.0-11.0); Neutrophils Absolute Auto 4.54 K/uL (1.7-7.0); Neutrophils Percent Auto 57.3 % (42.0-72.0); Platelet Count* 390 K/uL (140-440); RDW Coefficient of Variation % 11.9 % (11.5-15.5); Red Blood Count 4.34 m/uL (4.00-5.20); White Blood Count* 7.91 K/uL (4.50-11.00)
[2023-03-07 17:57] LABS: Slide Review Reflex No
[2023-03-07 18:03] LABS: Chloride* 93 mmol/L (96-114); Potassium* 3.9 mmol/L (3.6-5.1); Sodium* 130 mmol/L (135-149)
[2023-03-07 18:05] LABS: Creatinine* 0.9 mg/dL (0.5-1.5); Est. Creatinine Clearance* 39.87; Estimated Glomerular Filt Rate 70 ml/min
[2023-03-07 18:06] VITALS: BP 152/83; PULSE 76; RESP 10; O2SAT 98
[2023-03-07 18:06] LABS: Blood Urea Nitrogen* 14 mg/dL (7-30); Calcium* 9.4 mg/dL (8.4-10.6); Carbon Dioxide* 28 mmol/L (20-32); Glucose* 90 mg/dL (60-115); Magnesium* 1.8 mg/dL (1.5-2.6)
[2023-03-07] MEDS: OXYCODONE 1 MG/ML ORAL SOLN 5 MG PO (18:30)
[2023-03-07 19:00] VITALS: BP 152/83; PULSE 78; RESP 18; O2SAT 97
== END 2023-03-07 19:21 | disposition home or self-care (01) ==
PROVIDERS: Emergency Provider Family Medicine; PCP Family Medicine
DX: R10.9 Unspecified abdominal pain (principal); G89.29 Other chronic pain; R19.7 Diarrhea, unspecified; E87.1 Hypo-osmolality and hyponatremia
CPT/HCPCS: 36415; 80048; 83735; 85025; 96374; 99284; A9270; J1885; J7030

== ENCOUNTER 2023-11-01 13:48 | Emergency (ER) | payer MEDICARE, BC, SELFPAY ==
[2023-11-01 13:51] VITALS: BP 134/81; PULSE 96; RESP 16; TEMP 36.6; O2SAT 97; BMI 23.0
--- OUTSIDE RECORDS SUMMARY | 2023-11-01 16:39 | XMS_ITS | Clinical Summary ---
Author Name Unknown Organization [facility] Address [place], [place] [address] Care Team Providers Care Numerical Control Tool Programmer Name Role Phone Crista Baird DO Primary Care Provider [phone] Allergies Active Allergy Reactions Criticality Noted Date Comments Acetaminophen *Unknown Unknown 07/13/2022 Citalopram Anxiety Unknown 09/18/2016 [place] Diarrhea Unknown 02/15/2012 Egg Diarrhea 04/21/2023 Gelatin GI Upset Unknown 03/02/2018 Red Dye *Unknown Unknown 03/12/2022 Metoclopramide Hcl Anxiety Medium 05/15/2018 Medications Medication Sig Dispensed Refills Start Date End Date Status Blood Pressure Monitor KitIndications:El evated blood pressure reading without diagnosis of hypertension Frequency of testing: daily 1 Each 06/30/2022 Active medication order composer Take 1 Tablet by mouth each time if needed (with food). Enzymedica Digest Basic Gold (digestive enzymes) Active medication order composer Take 2 Tablets by mouth once daily. Natural Factors Methylcobalamin B12 1000 mcg/tablet Active medication order composerIndicatio ns:History of multiple allergies Diphenhydramine (Benadryl) compounded to 25mg per capsule: take 1 capsule by mouth up to 4 times daily as needed 360 Capsule 03/19/2023 Active levocetirizine (Xyzal) 5 mg tab tablet Take 5 mg by mouth two times daily. 0 03/23/2023 Active mirtazapine (REMERON) 15 mg tabletIndications :Moderate episode of recurrent major depressive disorder (HC) Take 1 tablet nightly at bedtime and 1 tablet daily as needed for anxiety. 120 Tablet 1 07/07/2023 Active levothyroxine (SYNTHROID) 88 mcg tabletIndications :Hypothyroidism, unspecified type Take 1 Tablet (88 mcg) by mouth before breakfast. 90 Tablet 3 09/13/2023 Active amLODIPine (NORVASC) 10 mg tabletIndications :HTN (hypertension) Take 1 Tablet (10 mg) by mouth once daily. 90 Tablet 3 09/24/2023 Active LORazepam (ATIVAN) 0.5 mg tabIndications:An xiety with somatic features TAKE 1 TABLET(0.5 MG) BY MOUTH THREE TIMES DAILY NEEDED FOR ANXIETY 90 Tablet 2 09/30/2023 Active FLUoxetine 20 mg tabletIndications :Anxiety with somatic features,Recurren t major depressive disorder, in partial remission (HC) Take 1.5 Tablets (30 mg) by mouth every morning. 180 Tablet 1 09/30/2023 Active albuterol HFA (ProAir HFA) 90 mcg/actuation inhalerIndication s:Bronchitis with bronchospasm Inhale 1-2 Puffs by mouth every 6 hours if needed for Shortness of Breath 1st choice. 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 Per chart: Met with an optical effects layout person in 2018. At that time Dr. Sanders did not feel like she was having excessive histamine secretion and did not feel that she was dealing with a food allergy. Depression, recurrent 06/30/2022 Controlled substance agreement signed 06/05/2022 Overview: 06/05/22, Kamryn Orlando MD. Psychiatry Protein-calorie malnutrition 10/01/2021 Benzodiazepine dependence 10/01/2021 Controlled substance agreement signed 04/29/2021 Overview: 04/10/21 Kamryn Orlando MD/Psychiatry Depression, reactive 03/23/2019 Controlled substance agreement signed 09/30/2018 Overview: Signed 09/30/18 Brandy Boucher psychiatry Anxiety with somatic features 08/31/2018 Anxiety 09/18/2016 Functional diarrhea 06/19/2016 Overview: Colonoscopy 06/2016 normal, repeat in 10 years, recommend EGD Pelvic floor dysfunction 04/20/2016 UTI (lower urinary tract infection) 03/22/2013 Dysthymic disorder 01/25/2013 Hyperlipidemia 09/04/2011 Ganglion cyst 04/02/2008 Menopausal symptoms Hypothyroidism Resolved Problems Problem Noted Date Diagnosed Date Resolved Date Controlled substance agreement signed 06/16/2019 06/05/2022 Overview: Signed 06/13/19 Dr Kamryn Orlando Psychiatry Renal insufficiency 04/24/2017 05/17/20 Controlled substance agreement signed 12/10/2016 08/31/2018 Overview: Signed: 05/04/16 Dr. Max Post MD / psychiatry C. difficile diarrhea 12/16/20122013 Encounters Date Type Department Care Team Description 11/01/2023 1:00 PM CDT Procedure Only [facility] [address] [facility] [place] [address] Romana Julian L Ac Acupuncture (Patient seen for a few minute... 11/01/2023 Travel 11/01/2023 Nurse Triage [facility] [address] [place] [address] Crista Baird Su, DO Edema (Abdominal fluid build up and leg fluid build up and chest tightness prn) 10/29/2023 1:00 PM CDT Procedure Only [address] [address] Romana Julian L Ac Acupuncture 10/29/2023 Travel 10/22/[address] [address] Yin Jones PA Refill Request (Albuterol Hfa) 09/30/2023 11:00 AM CDT Ancillary Procedure [address] [address] 09/30/2023 10:15 AM CDT Office Visit [address] [address] Yin Jones PA Cough (Cough on and off for 2-3 weeks. Comes and goes. Tightness in chest. Sometimes pressure, sometimes able to cough up phlegm. Lots of sinus pressure and headache. Sleeps with ice pack on head. Decreased energy./Denies fevers. COVID-19 test negative./) 09/30/2023 9:45 AM CDT Telemedicine [address] [address] Kamryn Orlando MD Telehealth; Medication Management 09/30/2023 Travel 09/24/[address] [address] Crista Baird, DO Refill Request (Amlodipine) 09/21/[address] [address] Kamryn Orlando MD Refill Request (Lorazepam) 09/20/2023 10:00 AM COMPOUNDING PHARMACY TECHNICIAN Procedure Only [address] [address] Romana Julian L Ac Acupuncture 09/20/2023 Travel 09/13/2023 8:30 AM COMPOUNDING PHARMACY TECHNICIAN Office Visit [facility] [address] [place] [address] Crista Baird Su, DO Medication Management 09/13/2023 Travel 09/13/2023 Refill [facility] [address] [place] [address] Sir Bairdi Su, DO Refill Request (Levothyroxine) 09/10/2023 1:00 PM COMPOUNDING PHARMACY TECHNICIAN Procedure Only [facility] [address] [place] [address] Romana Julian L Ac Acupuncture 09/10/2023 Telephone [facility] [address] [place] [address] Kamryn Orlando MD Blood Pressure 09/10/2023 Travel 08/27/2023 10:00 AM COMPOUNDING PHARMACY TECHNICIAN Procedure Only [facility] [address] [place] [address] Romana Julian L Ac Acupuncture 08/27/2023 Travel 08/24/2023 11:15 AM COMPOUNDING PHARMACY TECHNICIAN Telemedicine [facility] [address] [place] [address] Kamryn Orlando MD Telehealth; Medication Management 08/24/2023 Travel 08/19/2023 11:00 AM COMPOUNDING PHARMACY TECHNICIAN Procedure Only [facility] [address] [place] [address] Romana Julian L Ac Acupuncture 08/19/2023 Travel 08/16/2023 Telephone [facility] [address] [place] [address] Marialuisa Tello, Wilmer, LP Consult (DBT Group ) 08/11/2023 Refill [facility] [address] [place] [address] Sir Bairdi Su, DO Refill Request (Levothyroxine) 08/10/2023 Refill [facility] [address] [place] [address] Crista Baird, DO Refill Request (Levothyroxine) 08/05/2023 11:00 AM COMPOUNDING PHARMACY TECHNICIAN Procedure Only [facility] [address] [place] [address] Romana Julian, L Ac Acupuncture 08/05/2023 Travel 08/04/2023 Telephone [facility] [address] [place] [id number] Brit Linda, PhD, LP clarification needed (Referral group/class dbt therapy) 08/02/2023 10:00 AM COMPOUNDING PHARMACY TECHNICIAN Procedure Only [facility] [address] [place] [address] Romana Julian, L Ac Acupuncture 08/02/2023 Telephone [facility] [address] [place] [address] Romana Julian, L Ac Acupuncture (Request current order for medicare/insur. - [facility]) 08/02/2023 Travel from Last 3 Months Immunizations Name Administration Dates Next Due COVID-19 vaccine (Moderna 10 0mcg/0.5mL) JUAN DANIEL RIOS 08/29/2020 Influenza A (H1N1), Inactivated 08/07/2009 Influenza, IIV3 (Age >=3 years) 05/20/2012,05/04,04/23/2010 Tdap 05/30/2018,04/02/2008 Zoster (Zostavax-ZVL, live) 01/05/2012 Family History Medical History Relation Name Comments No Known Problems Brother Cancer Father jaw Leukemia Maternal Grandfather Cancer Mother thyroid Cancer-breast Mother Clotting disorder Mother ?unknown t ype, was on blood thinner after stroke Stroke Mother Heart Disease Paternal Grandfather Heart attack Paternal Grandmother Asthma Sister Thyroid Disease Sister hypothyroidi sm Anesthesia Malignant Hyperthermia No Family History Anesthesia Problem No Family History Relation Name Status Comments Brother Alive Father Alive Maternal Grandfather Mother Alive Paternal Grandfather Paternal Grandmother Sister Alive Social History Tobacco Use Types Packs/Day Years Used Date Smoking Tobacco: Never Smokeless Tobacco: Never Tobacco Cessation:Counseling Given: Yes Alcohol Use Standard Drinks/Week Comments No 0 (1 standard drink = 0.6 oz pur e alcohol) PHQ-2 Answer Date Recorded PHQ-2 TOTAL SCORE 1 09/30/2023 Social Connections Answer Date Recorded Frequency of Communication with Friends and Fami ly Not on file 01/15/2023 Financial Resource Strain Answer Date R ecorded Difficulty of Paying Living Expenses 3 01/14/2022 Difficulty of Paying Living Expenses Not on file 01/14/2022 Food Insecurity Answer Date Recorded Worried About Running Out of Food in the Last Ye ar 1 01/14/2022 Transportation Needs Answer Date Record ed Lack of Transportation (Medical) 1 01/14/2022 Housing Stability Answer Date Recorded Unable to Pay for Housing in the Last Year 1 01/14/2022 Sex and Gender Information Value Date Recorded Sex Assigned at Not on file Gender Identity Not on file Sexual Orientation Not on file Obstetrics History Last Filed Vital Signs Vital Sign Reading Time Taken Comments Blood Pressure 157/79 09/30/2023 10:24 AM CDT Pulse 84 09/30/2023 10:22 AM CDT Temperature 36.7 ??C (98.1 ??F) 09/30/2023 10:22 AM C DT Respiratory Rate 17 12/24/2022 8:00 AM CDT Oxygen Saturation 98% 09/30/2023 10:22 AM CDT Inhaled Oxygen Concentration - - Weight 61.2 kg (135 lb) 09/30/2023 10:22 AM CDT Height 165.1 cm (5' 5) 09/13/2023 9:00 AM COMPOUNDING PHARMACY TECHNICIAN Body Mass Index 22.47 09/13/2023 9:00 AM COMPOUNDING PHARMACY TECHNICIAN Plan of Treatment Upcoming Encounters Date Type Department Care Team (Late st Contact Info) Description 11/05/2023 11:00 AM CDT Procedure Only [facility] [address] [place] [address] Romana Julian L Ac [address] [place] [address] Health Maintenance Due Date Last Done Comments Zoster (shingles) series for age 50+ (2 of 3) 03/01/2012 01/05/2012 Mammogram for age 45-75 07/28/2018 01/10/20 18, 03/19/2016, 11/21/2013, Additional history exists Pneumococcal series for age 65+ (1 of 1 - PCV) 11/07/2020 COVID-19 vaccine series (4 - 2022- season) 2023 06/24/2021, 09/26/2020, 08/29/2020 Medicare Wellness for age 65+ 07/01/2023 06/30/2022 Influenza for age 65+ 03/19/2024 05/20/2012 , 05/04/2011, 04/23/2010, Additional history exists BMI (ht and wt on same day) for age 18+ 09/13/2024 09/13/2023, 06/30/2022, 01/14/2022, Additional history exists Depression screening for age 12+ 09/29/2024 09/30/2023, 09/30/2023, 08/27/2023, Additional history exists Colonoscopy through age 75 06/17/202606/17, 06/17/2016, 07/23/2006 Lipids for age 45-75 01/14/2027 01/14/2022, 08/08/2020, 03/16/2016, Additional history exists Tetanus booster 05/30/2028 05/30/2018, 04/02/2008 Hepatitis C screening for ag e 18-79 Completed 09/18/2016 Tdap Completed 05/30/2018, 04/02/2008 DEXA/DXA scan for age 65+ Completed 08/10/2022 Procedures Procedure Name Priority Date/Time Associated Diagnosis Comments ACUPUNCTURE PLAN OF CARE Routine 11/01/2023 1:23 PM CDT Other low back pain ACUPUNCTURE PLAN OF CARE Routine 10/29/2023 12:48 PM CDT Other low back pain XR CHEST 2 VIEWS PA AND LATERAL Routine 09/30/2023 10:54 AM CDT Bronchitis with bronchospasm ACUPUNCTURE PLAN OF CARE Routine 09/20/2023 9:44 AM COMPOUNDING PHARMACY TECHNICIAN Other low back pain CBC W PLT NO DIFF Routine 09/13/2023 9:4 9 AM COMPOUNDING PHARMACY TECHNICIAN Fatigue, unspecified type VITAMIN B12 Routine 09/13/2023 9:49 AM COMPOUNDING PHARMACY TECHNICIAN Fatigue, unspecified type VITAMIN D 25 (DEFICIENCY) Routine 09/13/2023 9:49 AM COMPOUNDING PHARMACY TECHNICIAN Fatigue, unspecified type Vitamin D deficiency TSH WITH REFLEX Routine 09/13/2023 9:49 AM COMPOUNDING PHARMACY TECHNICIAN Hypothyroidism, unspecified type ACUPUNCTURE PLAN OF CARE Routine 09/10/2023 12:36 PM COMPOUNDING PHARMACY TECHNICIAN Other low back pain ACUPUNCTURE PLAN OF CARE Routine 08/27/2023 9:54 AM COMPOUNDING PHARMACY TECHNICIAN Other low back pain ACUPUNCTURE PLAN OF CARE Routine 08/19/2023 10:52 AM COMPOUNDING PHARMACY TECHNICIAN Other low back pain ACUPUNCTURE PLAN OF CARE Routine 08/05/2023 10:54 AM COMPOUNDING PHARMACY TECHNICIAN Other low back pain ACUPUNCTURE PLAN OF CARE Routine 08/02/2023 9:39 AM COMPOUNDING PHARMACY TECHNICIAN Other low back pain XR DXA BONE DENSITY 2 SITES AXIAL Routine 08/10/2022 9:44 AM COMPOUNDING PHARMACY TECHNICIAN Postmenopausal LIPID PANEL W REFLEX MEASURED LDL Routine 01/14/2022 9:57 AM CDT Hyperlipidemia, unspecified hyperlipidemia type XR MAMMO BILAT SCREENING Routine 07/28/2017 8:52 AM COMPOUNDING PHARMACY TECHNICIAN Visit for screening mammogram ANTI HCV Routine 09/18/2016 12:32 PM COMPOUNDING PHARMACY TECHNICIAN Need for hepatitis C screening test COLONOSCOPY 06/17/2016 8:51 AM COMPOUNDING PHARMACY TECHNICIAN from Last 3 Months or Most Recently Relevant to Health Maintenance Results * XR CHEST 2 VIEWS PA AND LATERAL (09/30/2023 10:54 AM CDT) Anatomical Region Laterality Modality CHEST, THORAX, Lung, HEART Compu shai Radiography 09/30/2023 2:51 PM CDT Impressions 09/30/2023 2:51 PM CDT Mild obstructive pulmonary physiology. No infiltrate. Dictated by Mauricio Turner MD @ 09/30/2023 2:51:54 PM (Electronically Signed) Narrative 09/30/2023 2:51 PM CDT For Patients: ??As a result of the Cures Act, medical imaging exams and procedure reports are released immediately into your electronic medical record. ??You may view this report before your referring provider. ??If you have questions, please contact your health care provider. INDICATION: Bronchitis with bronchospasm TECHNIQUE: Chest 2 views COMPARISON: None FINDINGS: Mildly increased lung volumes. Vascular calcifications. No infiltrate or CHF. Cardiac silhouette not enlarged. No fracture. Procedure Note Mauricio Turner MD - 09/30/2023 For Patients: As a result of the Cures Act, medical imagingexams and procedure reports are released immediately into your electronicmedical record. You may view this report before your referring provider.If you have questions, please contact your health care provider. INDICATION: Bronchitis with bronchospasm TECHNIQUE: Chest 2 views COMPARISON: None FINDINGS: Mildly increased lung volumes. Vascular calcifications. No infiltrate orCHF. Cardiac silhouette not enlarged. No fracture. IMPRESSION: Mild obstructive pulmonary physiology. No infiltrate. Dictated by Mauricio Turner MD @ 09/30/2023 2:51:54 PM (Electronically Signed) [facility] * TSH WITH REFLEX (09/13/2023 9:49 AM COMPOUNDING PHARMACY TECHNICIAN) TSH 0.99 0.27 - 4.20 uIU/mL 09/13/2023 3:19 PM COMPOUNDING PHARMACY TECHNICIAN [facility] Blood BLOOD SPECIMEN / Unknown Venipuncture / Unknown 09/13/2023 9:49 AM COMPOUNDING PHARMACY TECHNICIAN 09/13/2023 9:50 AM COMPOUNDING PHARMACY TECHNICIAN Narrative [facility] - 09/13/2023 3:19 PM COMPOUNDING PHARMACY TECHNICIAN In Adults, TSH values between 5.00 and 10.00 uIU/ml do not necessarily indicate the presence of Hypothyroidism. Correlation with clinical findings such as presence of goiter and/or Thyroperoxidase (TPO) Antibody may be helpful. For more information please refer to GENEVA 2004; 291: 228-238. Crista Baird DO CHEMISTRY [facility] [address] [place] [address] * VITAMIN D 25 (DEFICIENCY) (09/13/2023 9:49 AM [facility]) Pathologist [facility] VITAMIN D TOTAL 26.8 20.0 - 80.0 ng/mL 09/13/2023 5:05 PM [facility] Blood BLOOD SPECIMEN / Unknown Venipuncture / Unknown 09/13/2023 9:49 AM COMPOUNDING PHARMACY TECHNICIAN 09/13/2023 9:50 AM [facility] Narrative [facility] - 09/13/2023 5:05 PM COMPOUNDING PHARMACY TECHNICIAN ? Vitamin D Status Deficiency: ? <20 ng/mL Insufficiency: ?20-29 ng/mL Sufficiency: ?30-80 ng/mL Possible Toxicity: ??>80 ng/mL Based on [place] of Medicine recommendations Biotin supplements may cause clinically significant interference for this test assay. ??If interference is suspected, it is strongly recommended that biotin is discontinued for at least one week prior to retesting. Crista Baird DO SEND OUTS [facility] [address] [place] [address] * CBC W PLT NO DIFF (09/13/2023 9:49 AM [facility]) Pathologist [facility] WHITE BLOOD COUNT 7.7 4.5 - 11.0 thou/cu mm 09/13/2023 9:58 AM [facility] RED BLOOD COUNT 4.27 4.00 - 5.20 mil/cu mm 09/13/2023 9:58 AM [facility] HEMOGLOBIN 13.0 12.0 - 16.0 g/dL 09/13/2023 9:58 AM [facility] HEMATOCRIT 38.5 33.0 - 51.0 % 09/13/2023 9:58 AM [facility] MCV 90 80 - 100 fL 09/13/2023 9:58 AM [facility] MCH 30.4 26.0 - 34.0 pg 09/13/2023 9:58 AM COMPOUNDING PHARMACY TECHNICIAN [facility] MCHC 33.8 32.0 - 36.0 g/dL 09/13/2023 9:58 AM COMPOUNDING PHARMACY TECHNICIAN [facility] RDW 13.1 11.5 - 15.5 % 09/13/2023 9:58 AM COMPOUNDING PHARMACY TECHNICIAN [facility] PLATELET COUNT 377 140 - 440 thou/cu mm 09/13/2023 9:58 AM COMPOUNDING PHARMACY TECHNICIAN [facility] MPV 8.1 6.5 - 11.0 fL 09/13/2023 9:58 AM COMPOUNDING PHARMACY TECHNICIAN [facility] Blood BLOOD SPECIMEN / Unknown Venipuncture / Unknown 09/13/2023 9:49 AM COMPOUNDING PHARMACY TECHNICIAN 09/13/2023 9:50 AM COMPOUNDING PHARMACY TECHNICIAN Crista Baird DO HEMATOLOGY [facility] [address] [place] [address], [place] [phone] * VITAMIN B12 (09/13/2023 9:49 AM COMPOUNDING PHARMACY TECHNICIAN) Pathologist [facility] VITAMIN B12 504 232 - 1,245 pg/mL 09/13/2023 8:18 PM COMPOUNDING PHARMACY TECHNICIAN [facility] Blood BLOOD SPECIMEN / Unknown Venipuncture / Unknown 09/13/2023 9:49 AM COMPOUNDING PHARMACY TECHNICIAN 09/13/2023 9:50 AM COMPOUNDING PHARMACY TECHNICIAN Narrative [facility] - 09/13/2023 8:18 PM COMPOUNDING PHARMACY TECHNICIAN Biotin supplements may cause clinically significant interference for this test assay. ??If interference is suspected, it is strongly recommended that biotin is discontinued for at least one week prior to retesting. Cirsta Baird DO CHEMISTRY [facility] [address] [place] [address], [place] * (ABNORMAL) XR DXA BONE DENSITY 2 SITES AXIAL (08/10/2022 9:44 AM COMPOUNDING PHARMACY TECHNICIAN) Anatomical Region Laterality Modality Spine, HIPS, HIPL, HIPR Other Impressions 08/12/2022 11:21 AM COMPOUNDING PHARMACY TECHNICIAN Osteoporosis. RECOMMENDATIONS: The National Osteoporosis Foundation recommends pharmacologic treatment for patients with T-scores of -2.5 or less, patients with prior history of fragility fractures, or patients with 10-year probability of greater than 3% at hips or greater than 20% of suffering major osteoporotic fractures. Recommend continued optimization of calcium and vitamin D intake through dietary means and/or supplementation and regular exercise. Consider pharmacologic therapy for osteoporosis. Follow-up bone density reading in 2 years if therapy initiated to assess therapeutic efficacy. Joslyn Castle PA-C [facility] 08/12/2022 Narrative 08/12/2022 11:21 AM COMPOUNDING PHARMACY TECHNICIAN For Patients: Results are automatically released to your [facility] ([employer]) account once available, in compliance with federal regulations. This means that you may see your results before your provider has had a chance to review them. Please allow 2-3 business days for your provider to comment on the results. XR DXA Bone Mineral Density (BMD) EXAM LOCATION: [address] [address] PATIENT NAME: Blanquita Peterson DATE OF : 1955 EXAM DATE: 08/10/2022 REQUESTING PROVIDER: Crista Baird, DO GENDER AT : female HEIGHT: 5' 4.96 (06/30/2022) WEIGHT: ??116 lb (07/28/2022) MENOPAUSAL STATUS: Postmenopausal RACE/ETHNICITY: White RISK FACTORS: Weight < 127 lbs. and White Race CURRENT MEDICATION FOR BONE LOSS: NONE INDICATION: Post-Menopause COMPARISON DATE(S): None DXA scans are compared to prior studies for a patient only when the two (or more) studies were performed on the same scanner. It is not possible to compare data generated on one scanner to data from another because there are not standards in DXA equipment. This applies even if the two scanners are made by the same pairing machine operator. PROCEDURE: Dual-energy x-ray absorptiometry performed with routine technique. Reporting is completed in the form of a T-score. The T-score represents the standard deviation from peak bone mass based on young healthy adult. A Z-score is used for diagnosis in premenopausal women, and for men under the age of 50. FINDINGS: RESULT LUMBAR SPINE L1 - L4 (EXCLUDE L3) BMD: 0.874 g/cm2 T-Score: - 2.5 Z-Score: - 0.5 Change from prior: ??None RESULTS FEMUR Left femoral neck BMD: 0.827 g/cm2 T-Score: - 1.5 Z-Score: + 0.3 Change from prior: ??None Right femoral neck BMD: 0.793 g/cm2 T-Score: - 1.8 Z-Score: + 0.0 Change from prior: ??None Left hip BMD: 0.851 g/cm2 T-Score: - 1.2 Z-Score: + 0.3 Change from prior: ??None Right hip BMD: 0.843 g/cm2 T-Score: - 1.3 Z-Score: + 0.3 Change from prior: ??None WHO criteria: Normal: T-score at or above -1 SD Osteopenia: T-score between -1.1 and -2.4 SD Osteoporosis: T-score at or below -2.5 SD FRAX RISK CALCULATION (USED FOR OSTEOPENIA ONLY): 10-year probability of major osteoporotic fracture: 8.8%. 10-year probability of hip fracture: 1.3%. Crista Su Peteyra DO DEXA * (ABNORMAL) LIPID PANEL W REFLEX MEASURED LDL (01/14/2022 9:57 AM CDT) [facility] CHOLESTEROL,TOTAL 294(H) 100 - 199 mg/dL 01/14/2022 5:52 PM CDT [facility] TRIGLYCERIDES 124 <150 mg/dL 01/14/2022 5:52 PM CDT [facility] HDL CHOLESTEROL 77 >40 mg/dL 5:52 PM CDT [facility] NON-HDL CHOLESTEROL 217(H) <145 mg/dl 01/14/2022 5:52 PM CDT [facility] CHOL/HDL RATIO 3.82 <4.50 01/14/2022 5:52 PM CDT [facility] LDL CHOLESTEROL 192(H) <=130 mg/dL 01/14/2022 5:52 PM CDT [facility] VLDL CHOLESTEROL 25 <=30 mg/dL 01/14/2022 5:52 PM CDT [facility] PROVIDER ORDERED STATUS RANDOM 01/14/2022 5:52 PM CDT [facility] Blood BLOOD SPECIMEN / Unknown Venipuncture / Unknown 01/14/2022 9:57 AM CDT 01/14/2022 9:57 AM CDT Yanique LEONARD CHEMISTRY [facility] [address] [place] [address], [place] * XR MAMMO BILAT SCREENING (07/28/2017 8:52 AM COMPOUNDING PHARMACY TECHNICIAN) Anatomical Region Laterality Modality BREASTS, Breast Left, Breast Right Bilateral Mammography Impressions 07/28/2017 12:20 PM COMPOUNDING PHARMACY TECHNICIAN ??There is no radiographic evidence for malignancy. ??Recommend annual mammograms. A lay language report of this examination will be provided to the patient. MAMMOGRAM ASSESSMENT: ??ACR 2 Benign Narrative 07/28/2017 12:20 PM COMPOUNDING PHARMACY TECHNICIAN XR MAMMO BILAT SCREENING [[id number]] CLINICAL HISTORY: ??This is an asymptomatic 61 y.o. patient. INDICATION FOR EXAM: Mammogram Screening. TECHNIQUE: CC & MLO views were obtained. ??This digital study was evaluated with the assistance of Computer-Aided Detection. COMPARISON FILMS: Yes 03/19/16 [facility] 11/21/13 [facility] FINDINGS: ??Mammographically, the breast tissue is extremely dense. ??This may lower the sensitivity of mammography. ??No suspicious masses or microcalcifications. ??Benign appearing calcifications within both breasts and Benign appearing asymmetry within left breast. Max Post MD MAMMO * ANTI HCV (09/18/2016 12:32 PM COMPOUNDING PHARMACY TECHNICIAN) HEPATITIS C ANTIBODY Non-Reacti ve Non-Reacti ve 09/18/2016 4:20 PM COMPOUNDING PHARMACY TECHNICIAN [facility] Blood BLOOD SPECIMEN / Unknown Venipuncture / Unknown 09/18/2016 12:32 PM COMPOUNDING PHARMACY TECHNICIAN 09/18/2016 12:32 PM COMPOUNDING PHARMACY TECHNICIAN Narrative [facility] - 09/18/2016 4:20 PM COMPOUNDING PHARMACY TECHNICIAN Antibodies to HCV not detected; does not exclude the possibility of exposure to HCV. Lowell Gil MD [facility] [address] [place] [address], [place] * COLONOSCOPY (06/17/2016 8:51 AM COMPOUNDING PHARMACY TECHNICIAN) 06/17/2016 8:51 AM COMPOUNDING PHARMACY TECHNICIAN Narrative Transcriptions Omid Narvaez MD - 06/17/2016 9:58 AM CST Patient Name: Blanquita Peterson Procedure Date: 06/17/2016 Gender: Female Date of : 1955 Admit Type: Outpatient Procedure: Colonoscopy Proceduralist: Omid Narvaez MD Indications/Pre-Op Diagnosis: Last colonoscopy 10 years ago, Chronicdiarrhea Medications: Fentanyl 200 micrograms IV, Midazolam 4 mgIV, The level of sedation administered wasmoderate Procedure Description: The patient had risks, benefits and alternatives explained to andgave informed consent. The patient had a stable cardiopulmonary status and judged an adequate candidate for conscious sedation. The [id number] was passed through the anus and advanced tothe terminal ileum. The colonoscopy was performed without difficulty. The patient tolerated the procedure well. The quality of the bowel preparation was excellent. The terminal ileum, ileocecal valve, appendiceal orifice, and rectum were photographed. Complications: No immediate complications. Estimated Blood Loss & Specimen: Estimated blood loss: none. Specimen collected - Yes and sent to Laboratory Findings: The perianal and digital rectal examinations were normal. The entire examined colon appeared normal on direct and retroflexion views. Biopsies for histology were taken with a cold forceps from the entire colon for evaluation of microscopic colitis. Impressions/Post-Op Diagnosis: - The entire examined colon is normal on direct and retroflexionviews. - Biopsies were taken with a cold forceps from the entire colon for evaluation of microscopic colitis. Recommendation: - Patient has a contact number available for emergencies. The signsand symptoms of potential delayed complications were discussed with the patient. Return to normal activities tomorrow. Written discharge instructions were provided to the patient. - Resume previous diet. - Continue present medications. - Await pathology results. - Repeat colonoscopy in 10 years for screening purposes. - Perform an upper GI endoscopy if biopsies of the colon arenormal. Omid Narvaez MD 06/17/2016 9:58:41 AM This report has been signed electronically. Note Initiated On: 06/17/2016 8:51 AM Procedure Code(s): --- Professional --- 45616, Colonoscopy, flexible; with biopsy, single or multiple Diagnosis Code(s): --- Professional --- K52.9, Noninfective gastroenteritis and colitis, unspecified CPT copyright 2015 [employer]. All rights reserved. The codes documented in this report are preliminary and upon rn oncology reviewmay be revised to meet current compliance requirements. 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
--- NOTE | 2023-11-01 16:42 | W.ED.CHARTNO ---
ED Chart Note Chart Note Details Date: 11/01/23 Details: Left waiting room without being seen by provider
== END 2023-11-01 16:38 | disposition home or self-care (01) ==
PROVIDERS: Emergency Provider Student in an Organized Health Care Education/Training Program; PCP Family Medicine
DX: Z53.21 Procedure and treatment not carried out due to patient leaving prior to being seen by health care provider (principal)

== ENCOUNTER 2023-11-02 05:38 | Emergency (ER) | payer MEDICARE, BC, SELFPAY ==
[2023-11-02 05:41] VITALS: BP 123/84; PULSE 90; RESP 18; TEMP 37.4; O2SAT 98; BMI 23.0
--- NOTE | 2023-11-02 05:52 | ED.GENADULT ---
HPI - General Adult General Chief complaint: Cough Stated complaint: Tightness in chest Time Seen by Provider: 11/02/23 05:47 History of Present Illness HPI narrative: pt presents with cough, congestion for greater than one week, was seen at [facility] and diagnosed with bronchitis. was using albuterol and mucinex but then began to have lower extremity swelling. Pt was in ED yesterday but left due to wait time. Pt states she feels like she is retaining fluids and chest tightness that comes and goes. Pt currently denies chest tightness 67-year-old woman presenting to the emergency department with concern of episodic chest tightness or pain. She has tried warm packs to help relieve it. This has been going on for months though apparently. Recent episode did last 3 hours. She was pretty alarmed though when called in and triage said that this might be little heart attacks. Weight yesterday in the emergency department was too long. In she has had more cough and feeling congested over the last week. I believe she has been more laryngitic since that time. Was seen a month ago though at [facility] clinic she says diagnosed with bronchitis. Was given albuterol. Also Mucinex. Chest x-ray was done at that time and noted to be negative for pneumonia she says. (reviewing over-read later noting some hyperexpansion to the lungs) She believes related to the albuterol she began to have some swelling in the lower extremities. She shows me a picture of some puffiness in the ankles and sock lines. She notes a 20+ lb weight gain over the last couple of months. She notes exertional dyspnea. Generalized fatigue. Review of records does show a history of chronic hyponatremia which she blames on polydipsia and does not feel that that is probably an issue anymore. I note her eyes to be little red and she sounds congested and she says that probably related to not sleeping or at least the red eyes with worry. I asked about allergies, record would indicate seasonal allergies, and she notes that has had some food difficulties but also been diagnosed with mast cell activation syndrome. She denies heartburn/GERD. Related Data Home Medications Medication Instructions Recorded Confirmed diphenhydramine HCl 25 mg tablet 25 mg PO QID PRN 03/12/22 11/01/23 (Allergy (diphenhydramine)) levothyroxine 112 mcg tablet 112 mcg PO DAILY 03/12/22 11/01/23 lorazepam 0.5 mg tablet 0.5 mg PO TID PRN 03/12/22 11/01/23 ibuprofen 200 mg tablet (Advil) 400 mg PO .Q4-QH PRN 03/26/22 11/01/23 levocetirizine 5 mg tablet (24HR 5 mg PO BID 03/26/22 11/01/23 Allergy Relief) amlodipine 5 mg tablet 5 mg PO DAILY 07/13/22 11/01/23 cholecalciferol (vitamin D3) 125 125 mcg PO DAILY 07/14/22 11/01/23 mcg (5,000 unit) tablet fluoxetine 20 mg tablet mg PO 11/01/23 mirtazapine 15 mg tablet 15 mg PO BID PRN anxiety 11/01/23 11/01/23 Allergies Allergy/AdvReac Type Severity Reaction Status Date / Time gelatin AdvReac Mild GI upset- Verified 11/01/23 14:01 gelatin capsules acetaminophen [From Tylenol] AdvReac Unknown Verified 11/01/23 14:01 Review of Systems Status of ROS: Reports: 6 or more systems reviewed and unremarkable except as noted in History and below [facility] Medical History 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 - Mast cell activation, unspecified (ICD-10) Benzodiazepine dependence ?F13.20 - Sedative, hypnotic or anxiolytic dependence, uncomplicated (ICD-10) Protein calorie malnutrition ?E46 - Unspecified protein-calorie malnutrition (ICD-10) Normal colonoscopy Dysthymic disorder ?F34.1 - Dysthymic disorder (ICD-10) Hyperlipidemia ?E78.5 - Hyperlipidemia, unspecified (ICD-10) Menopausal symptoms ?N95.1 - Menopausal and female climacteric states (ICD-10) Ganglion cyst ?M67.40 - Ganglion, unspecified site (ICD-10) History of migraine ?Z86.69 - Personal history of other diseases of the nervous system and sense organs (ICD-10) Functional diarrhea ?K59.1 - Functional diarrhea (ICD-10) Depression ?F32.A - Depression, unspecified (ICD-10) Chronic pain ?G89.29 - Other chronic pain (ICD-10) History of Clostridioides difficile infection (2012) ?Z86.19 - Personal history of other infectious and parasitic diseases (ICD-10) Seasonal allergies ?J30.2 - Other seasonal allergic rhinitis (ICD-10) Hypothyroidism ?E03.9 - Hypothyroidism, unspecified (ICD-10) Pelvic floor dysfunction ?M62.89 - Other specified disorders of muscle (ICD-10) Anxiety ?F41.9 - Anxiety disorder, unspecified (ICD-10) Surgical History History of vaginal hysterectomy (05/2005) ?Z90.710 - Acquired absence of both cervix and uterus (ICD-10) History of carpal tunnel surgery of left wrist (04/23/09) ?Z98.890 - Other specified postprocedural states (ICD-10) History of hernia repair (06/07/18) ?Z98.890 - Other specified postprocedural states (ICD-10) ?Z87.19 - Personal history of other diseases of the digestive system (ICD-10) Family History Sister Asthma Hypothyroidism Father Jaw cancer Mother Thyroid cancer Breast cancer Stroke Grandfather Coronary artery disease Grandmother Myocardial infarction Grandfather Leukemia Social History Narrative: . was here with her earlier. Denies tobacco, EtOH, or recreational drug use. FULL CODE. Highest level of school completed/degree received: Bachelor's degree Smoking Status: Never smoker Do you use any of these nicotine containing products: None Second hand tobacco smoke exposure: No How often do you have a drink containing alcohol: never How often do you have six or more drinks on one occasion: Never AUDIT-C Alcohol total score: 0 Non-prescribed substance use: denies use Caffeine: Yes (1 cup coffee daily) service: No Exam Narrative: Exam Narrative: Pleasant. Of good energy. Eyes are slightly injected without other inflammatory changes. She does sound congested nasopharynx without facial swelling erythema. Oropharynx is unremarkable. Does sound subtly laryngitic. Lungs are clear. There is no stridor or wheeze. Good air movement. Breath sounds throughout. Heart with mildly elevated rate in a regular rhythm without murmur rub or gallop. Occasional ectopic beat. Abdomen is soft protuberant and nontender. Lower extremities are with trace dependent edema at this time. No pitting. There is also no JVD no hepatojugular reflux either. Const: Vital Signs, click to edit/add: Vital Signs - 24 hr 11/02/23 05:41 11/02/23 07:12 Temperature 99.3 F Pulse Rate [Pulse Oximeter] 90 Respiratory Rate 18 Blood Pressure [Ri ght Upper Arm] 123/84 Pulse Oximetry 98 97 Oxygen Delivery Me thod Room Air Documenting provider has reviewed patient's vital signs: yes Course Vital Signs Vital signs: Initial Vital Signs Temperature 99.3 F 11/02/23 05:41 Temperature Source Temporal Artery Scan 11/02/23 05:41 Pulse Rate 90 11/02/23 05:41 Pulse Rhythm Regular 11/02/23 05:41 Respiratory Rate 18 11/02/23 05:41 Blood Pressure 123/84 11/02/23 05:41 Blood Pressure Mean 97 11/02/23 05:41 Blood Pressure Position Supine 11/02/23 05:41 Pulse Oximetry 98 11/02/23 05:41 Oxygen Delivery Method Room Air 11/02/23 05:41 Vital Signs Temperature 99.3 F 11/02/23 05:41 Pulse Rate 90 11/02/23 05:41 Respiratory Rate 18 11/02/23 05:41 Blood Pressure 123/84 11/02/23 05:41 Pulse Oximetry 98 11/02/23 05:41 Oxygen Delivery Method Room Air 11/02/23 05:41 Temperature 99.3 F 11/02/23 05:41 Pulse Rate 90 11/02/23 05:41 Respiratory Rate 18 11/02/23 05:41 Blood Pressure 123/84 11/02/23 05:41 Pulse Oximetry 97 11/02/23 07:12 Oxygen Delivery Method Room Air 11/02/23 05:41 Medical Decision Making MDM Narrative Medical decision making narrative: Heart failure is in differential. Fatigue could be related to this history of hyponatremia again. Does seem to be congested in the nasopharynx. I would suspect some seasonal allergies might be playing a role. I did propose labs and x-ray imaging to begin. Will monitor. I have reviewed EKG already as below. Generally reassuring. Monitored in the emergency department without event. Has not had any more complaint of pain. Chest x-ray with some haziness by my read in the lower left lung. Over-read by radiology favors inflammation. Study:?XRay-Chest 2 VIEW-11/02/2023 6:38:49 AM Ordering Physician:ZEYAD Final Report: INDICATION: Cough and exertional dyspnea COMPARISON: March 12, 2022 TECHNIQUE: Single view study FINDINGS: TUBES AND LINES: None. HEART AND MEDIASTINUM: The heart size is normal. The mediastinal contour appears normal for patient age. LUNGS AND PLEURAL SPACES: Airspace opacity at the left base, favor inflammatory.The pleural spaces are unremarkable. OSSEOUS STRUCTURES: Age-appropriate appearance. No acute focal finding. IMPRESSION: Airspace opacity at the left base probably inflammatory focus. Labs with mildly elevated D-dimer. I did discuss potential trial/treatment with prednisone for what might be a lingering bronchitis picture for lack of better term. Ms. Peterson is nervous to have prednisone noting how it cause her sister to have more anxiety. In reviewing labs and inconclusive findings, she would like to proceed with CTA of the chest looking for pulmonary embolus and further characterize this inflammatory area in the left lower lung. This might also help us elucidate whether or not there appear to be some changes consistent with COPD. Otherwise would consider further evaluation with cardiac echo/stress echo as part of a workup for this fatigue and intermittent chest pressure/tightness. She might be experiencing flare of seasonal allergies and benefit from regular antihistamine. Steroids may still be indicated here as well. Will be handing off pending results of CT imaging at change of shift. Lab Data Labs: Lab Results 11/02/23 Range/Units 06:45 WBC 5.96 (4.50-11.00) K/uL RBC 4.49 (4.00-5.20) m/uL Hgb 13.3 (12.0-16.0) gm/dL Hct 41.4 (33.0-51.0) % MCV 92 (80-100) fL MCH 30 (26-34) pg MCHC 32 (32-36) gm/dL RDW Coeff of Naman 13.3 (11.5-15.5) % Plt Count 371 (140-440) K/uL Neut % (Auto) 48.5 (42.0-72.0) % Lymph % (Auto) 39.3 (20-44) % Bates % (Auto) 8.1 (0.0-11.0) % Eos % (Auto) 3.4 (0.0-7.0) % Baso % (Auto) 0.5 (0.0-3.0) % Neut # (Auto) 2.90 (1.7-7.0) K/uL Lymph # (Auto) 2.34 (0.90-2.90) K/uL Bates # (Auto) 0.50 (0.00-0.90) K/UL Eos # (Auto) 0.20 (0.00-0.50) K/uL Baso # (Auto) 0.03 (0.00-0.30) K/uL Abs Immat Gran (auto) 0.01 (0.00-0.30) K/uL Imm/Tot Granulo (auto) 0.2 % D-Dimer Quant (PE/DVT) 0.76 H (0.00-0.50) ug/ml Sodium 137 (135-149) mmol/L Potassium 4.1 (3.6-5.1) mmol/L Chloride 105 (96-114) mmol/L Carbon Dioxide 28 (20-32) mmol/L Anion Gap 4 L (7-15) mEq/L BUN 20 (7-30) mg/dL Creatinine 0.8 (0.5-1.5) mg/dL Estimated Creat Clear 49.12 Estimated GFR 81 ml/min Glucose 90 (60-115) mg/dL Calcium 9.2 (8.4-10.6) mg/dL Magnesium 2.2 (1.5-2.6) mg/dL Total Bilirubin 0.4 (0.1-1.5) mg/dL Direct Bilirubin 0.2 (0.0-0.5) mg/dL AST 29 (12-35) U/L ALT 22 (4-35) U/L Alkaline Phosphatase 89 (40-150) U/L Troponin I < 0.01 L (0.01-0.04) ng/mL C-Reactive Protein < 0.5 L (0.5-1.0) mg/dL NT-Pro-B Natriuret Pep 68 pg/mL Total Protein 7.9 (6.0-8.3) g/dL Albumin 4.5 (3.3-5.0) g/dL TSH 0.272 (0.270-4.20) uIU/mL SARS-CoV-2 (PCR) Negative SARS-CoV-2 (Negative) Influenza Type A (PCR) Negative PCR FLU A (Negative) Influenza Type B (PCR) Negative PCR FLU B (Negative) RSV (PCR) Negative PCR RSV (Negative) ECG Data Attestation: I personally reviewed and interpreted this ECG as follows: (Normal sinus rhythm. Early transition. Rate of 84) Discharge Plan Discharge Clinical Impression: Fatigue, Atypical chest pain Prescriptions: No Action diphenhydramine HCl [Allergy (diphenhydramine)] 25 mg tablet 25 mg PO QID PRN lorazepam 0.5 mg tablet 0.5 mg PO TID PRN Patient Comments: TAKE ONE TABLET BY MOUTH (0.5MG) BY MOUTH 3 TIMES DAILY IF NEEDED FOR ANXIETY. levothyroxine 112 mcg tablet 112 mcg PO DAILY Patient Comments: TAKE 1 TABLET (112 MCG) BY MOUTH BEFORE BREAKFAST. ibuprofen [Advil] 200 mg tablet 400 mg PO .Q4-QH PRN levocetirizine [24HR Allergy Relief] 5 mg tablet 5 mg PO BID amlodipine 5 mg tablet 5 mg PO DAILY cholecalciferol (vitamin D3) 125 mcg (5,000 unit) tablet 125 mcg PO DAILY fluoxetine 20 mg tablet PO mirtazapine 15 mg tablet 15 mg PO BID PRN (Reason: anxiety) Follow Up/Referrals: Crista Baird DO [Primary Care Provider] -
--- NOTE | 2023-11-02 06:22 | XR_ITS ---
Patient: BERNABE GUTIERREZ Facility:?[facility] Patient ID:?[id number] Site Patient ID:?[id number]. Site :?1955 Study:?XRay-Chest 2 VIEW-11/02/2023 6:38:49 AM Ordering Physician:ZEYAD Final Report: INDICATION: Cough and exertional dyspnea COMPARISON: March 12, 2022 TECHNIQUE: Single view study FINDINGS: TUBES AND LINES: None. HEART AND MEDIASTINUM: The heart size is normal. The mediastinal contour appears normal for patient age. LUNGS AND PLEURAL SPACES: Airspace opacity at the left base, favor inflammatory.The pleural spaces are unremarkable. OSSEOUS STRUCTURES: Age-appropriate appearance. No acute focal finding. IMPRESSION: Airspace opacity at the left base probably inflammatory focus. Dictated by Jacky Roche MD @ 11/02/2023 6:47:21 AM Signed by:?Jacky Roche MD @11/02/2023 6:47:21 AM (Electronic Signature)
--- NOTE | 2023-11-02 06:55 | PC.NURSE ---
pt to and from radiology, will let staff know when able to provide a urine sample.
[2023-11-02 06:59] LABS: Basophils Absolute Auto 0.03 K/uL (0.00-0.30); Basophils Percent Auto 0.5 % (0.0-3.0); Eosinophils Percent Auto 3.4 % (0.0-7.0); Hematocrit 41.4 % (33.0-51.0); Hemoglobin* 13.3 gm/dL (12.0-16.0); Immature Granulocytes Abs Auto 0.01 K/uL (0.00-0.30); Immature Granulocytes Pct Auto 0.2 %; Lymphocytes Absolute Auto 2.34 K/uL (0.90-2.90); Lymphocytes Percent Auto 39.3 % (20-44); Mean Corpuscular HGB Conc 32 gm/dL (32-36); Mean Corpuscular Hemoglobin 30 pg (26-34); Mean Corpuscular Volume 92 fL (80-100); Monocytes Percent Auto 8.1 % (0.0-11.0); Neutrophils Percent Auto 48.5 % (42.0-72.0); Platelet Count* 371 K/uL (140-440); RDW Coefficient of Variation % 13.3 % (11.5-15.5); Red Blood Count 4.49 m/uL (4.00-5.20); White Blood Count* 5.96 K/uL (4.50-11.00)
[2023-11-02 07:05] LABS: Slide Review Reflex No
--- OUTSIDE RECORDS SUMMARY | 2023-11-02 07:06 | XMS_ITS | Clinical Summary ---
Author Name Unknown Organization [facility] Address [place], [place] [address] Care Team Providers Care Service Delivery Consultant Name Role Phone Crista Baird DO Primary Care Provider [phone] Allergies Active Allergy Reactions Criticality Noted Date Comments Acetaminophen *Unknown Unknown 07/13/2022 Citalopram Anxiety Unknown 09/18/2016 [place] Diarrhea Unknown 02/15/2012 Egg Diarrhea 04/21/2023 Gelatin [...] 12/20/2022 Overview: Dr La, [facility], - baseline mild hyponatremia since 2017 that ranges from 131-136, normalized on fluid restriction (32 ounces per day roughly) without salt tabs. 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 Per chart: Met with an adolescent coordinator in 2018. At that time Dr. Sanders [...] Description 11/01/2023 1:00 PM CDT Procedure Only [facility] [address] [facility] [address] Romana Julian L Ac Acupuncture (Patient seen for a few minute... 11/01/2023 Travel 11/01/2023 Nurse Triage [facility] [address] [facility] [place] [address] Crista Baird Su, DO Edema (Abdominal fluid build up and leg fluid build up and chest tightness prn) 10/29/2023 1:00 PM CDT Procedure Only [address] [address] Romana Julian L Ac Acupuncture 10/29/2023 Travel 10/22/[address] [address] Yin Jones PA Refill Request (Albuterol Hfa) 09/30/2023 11:00 AM CDT Ancillary Procedure [address] [address] 09/30/2023 10:15 AM CDT Office Visit [address] [address] Yin Jones PA Cough (Cough on and off for 2-3 weeks. Comes and goes. Tightness in chest. Sometimes pressure, sometimes able to cough up phlegm. Lots of sinus pressure and headache. Sleeps with ice pack on head. Decreased energy./Denies fevers. COVID-19 test negative./) 09/30/2023 9:45 AM CDT Telemedicine [address] [address] Kamryn Orlando MD Telehealth; Medication Management 09/30/2023 Travel 09/24/[address] [address] Crista Baird, DO Refill Request (Amlodipine) 09/21/[address] [address] Kamryn Orlando MD Refill Request (Lorazepam) 09/20/2023 10:00 AM DOCUMENTATION LEAD Procedure Only [address] [address] Romana Julian L Ac Acupuncture 09/20/2023 Travel 09/13/2023 8:30 AM DOCUMENTATION LEAD Office Visit [facility] [address] [place] [address] Crista Baird Su, DO Medication Management 09/13/2023 Travel 09/13/2023 Refill [facility] [address] [place] [address] Sir Bairdi Su, DO Refill Request (Levothyroxine) 09/10/2023 1:00 PM DOCUMENTATION LEAD Procedure Only [facility] [address] [place] [address] Romana Julian L Ac Acupuncture 09/10/2023 Telephone [facility] [address] [place] [address] Kamryn Orlando MD Blood Pressure 09/10/2023 Travel 08/27/2023 10:00 AM DOCUMENTATION LEAD Procedure Only [facility] [address] [place] [address] Romana Julian L Ac Acupuncture 08/27/2023 Travel 08/24/2023 11:15 AM DOCUMENTATION LEAD Telemedicine [facility] [address] [place] [address] Kamryn Orlando MD Telehealth; Medication Management 08/24/2023 Travel 08/19/2023 11:00 AM DOCUMENTATION LEAD Procedure Only [facility] [address] [place] [address] Romana Julian L Ac Acupuncture 08/19/2023 Travel 08/16/2023 Telephone [facility] [address] [place] [address] Marialuisa Tello, Wilmer, LP Consult (DBT Group ) 08/11/2023 Refill [facility] [address] [place] [address] Sir Bairdi Su, DO Refill Request (Levothyroxine) 08/10/2023 Refill [facility] [address] [facility] [place] [address] Crista Baird, DO Refill Request (Levothyroxine) 08/05/2023 11:00 AM DOCUMENTATION LEAD Procedure Only [facility] [address] [facility] [place] [address] Romana Julian L Ac Acupuncture 08/05/2023 Travel 08/04/2023 Telephone [facility] [address] [facility] [place] [phone] Brit Linda, PhD, LP clarification needed (Referral group/class dbt therapy) from Last 3 Months Immunizations Name Administration Dates Next Due COVID-19 vaccine (Moderna 10 0mcg/0.5mL) PF, MDV 08/29/2020 Influenza A (H1N1), Inactivated 08/07/2009 Influenza, [...] 165.1 cm (5' 5) 09/13/2023 9:00 AM DOCUMENTATION LEAD Body Mass Index 22.47 09/13/2023 9:00 AM DOCUMENTATION LEAD Plan of Treatment Upcoming Encounters Date Type Department Care Team (Late st Contact Info) Description 11/05/2023 11:00 AM CDT Procedure Only [facility] [address] [place] [address] Romana Julian L Ac [address] [place] [address] Health Maintenance Due Date Last Done Comments Zoster (shingles) series for age 50+ (2 of 3) 03/01/2012 01/05/2012 Mammogram for age 45-75 07/28/2018 07/28/19 18, 03/19/2016, 11/21/2013, Additional history exists Pneumococcal [...] PLAN OF CARE Routine 09/20/2023 9:44 AM DOCUMENTATION LEAD Other low back pain CBC W PLT NO DIFF Routine 09/13/2023 9:4 9 AM DOCUMENTATION LEAD Fatigue, unspecified type VITAMIN B12 Routine 09/13/2023 9:49 AM DOCUMENTATION LEAD Fatigue, unspecified type VITAMIN D 25 (DEFICIENCY) Routine 09/13/2023 9:49 AM DOCUMENTATION LEAD Fatigue, unspecified type Vitamin D deficiency TSH WITH REFLEX Routine 09/13/2023 9:49 AM DOCUMENTATION LEAD Hypothyroidism, unspecified type ACUPUNCTURE PLAN OF CARE Routine 09/10/2023 12:36 PM DOCUMENTATION LEAD Other low back pain ACUPUNCTURE PLAN OF CARE Routine 08/27/2023 9:54 AM DOCUMENTATION LEAD Other low back pain ACUPUNCTURE PLAN OF CARE Routine 08/19/2023 10:52 AM DOCUMENTATION LEAD Other low back pain ACUPUNCTURE PLAN OF CARE Routine 08/05/2023 10:54 AM DOCUMENTATION LEAD Other low back pain XR DXA BONE DENSITY 2 SITES AXIAL Routine 08/10/2022 9:44 AM DOCUMENTATION LEAD Postmenopausal LIPID PANEL W REFLEX MEASURED LDL Routine 01/14/2022 9:57 AM CDT Hyperlipidemia, unspecified hyperlipidemia type XR MAMMO BILAT SCREENING Routine 07/28/2017 8:52 AM DOCUMENTATION LEAD Visit for screening mammogram ANTI HCV Routine 09/18/2016 12:32 PM DOCUMENTATION LEAD Need for hepatitis C screening test COLONOSCOPY 06/17/2016 8:51 AM DOCUMENTATION LEAD from Last 3 Months or Most Recently [...] For Patients: As a result of the s Act, medical imagingexams and procedure reports are [...] * TSH WITH REFLEX (09/13/2023 9:49 AM DOCUMENTATION LEAD) TSH 0.99 0.27 - 4.20 uIU/mL 09/13/2023 3:19 PM DOCUMENTATION LEAD [facility] Blood BLOOD SPECIMEN / Unknown Venipuncture / Unknown 09/13/2023 9:49 AM DOCUMENTATION LEAD 09/13/2023 9:50 AM DOCUMENTATION LEAD Narrative [facility] - 09/13/2023 3:19 PM DOCUMENTATION LEAD In Adults, TSH values between 5.00 and 10.00 uIU/ml do not necessarily indicate the presence of Hypothyroidism. Correlation with clinical findings such as presence of goiter and/or Thyroperoxidase (TPO) Antibody may be helpful. For more information please refer to GENEVA 2004; 291: 228-238. Crista Baird DO CHEMISTRY [facility] [address] [place] [address], * VITAMIN D 25 (DEFICIENCY) (09/13/2023 9:49 AM DOCUMENTATION LEAD) VITAMIN D TOTAL 26.8 20.0 - 80.0 ng/mL 09/13/2023 5:05 PM DOCUMENTATION LEAD [facility] Blood BLOOD SPECIMEN / Unknown Venipuncture / Unknown 09/13/2023 9:49 AM DOCUMENTATION LEAD 09/13/2023 9:50 AM DOCUMENTATION LEAD Narrative [facility] - 09/13/2023 5:05 PM DOCUMENTATION LEAD ? Vitamin D Status Deficiency: ? <20 ng/mL Insufficiency: ?20-29 ng/mL Sufficiency: ?30-80 ng/mL Possible Toxicity: ??>80 ng/mL Based on [employer] [place] [employer] recommendations Biotin supplements may cause clinically significant interference for this test assay. ??If interference is suspected, it is strongly recommended that biotin is discontinued for at least one week prior to retesting. Crista Baird DO SEND OUTS [facility] [address] [place] [address], * CBC W PLT NO DIFF (09/13/2023 9:49 AM DOCUMENTATION LEAD) Pathologist [facility] WHITE BLOOD COUNT 7.7 4.5 - 11.0 thou/cu mm 09/13/2023 9:58 AM [facility] RED BLOOD COUNT 4.27 4.00 - 5.20 mil/cu mm 09/13/2023 9:58 AM [facility] HEMOGLOBIN 13.0 12.0 - 16.0 g/dL 09/13/2023 9:58 AM [facility] HEMATOCRIT 38.5 33.0 - 51.0 % 09/13/2023 9:58 AM [facility] MCV 90 80 - 100 fL 09/13/2023 9:58 AM [facility] MCH 30.4 26.0 - 34.0 pg 09/13/2023 9:58 AM [facility] MCHC 33.8 32.0 - 36.0 g/dL 09/13/2023 9:58 AM [facility] RDW 13.1 11.5 - 15.5 % 09/13/2023 9:58 AM [facility] PLATELET COUNT 377 140 - 440 thou/cu mm 09/13/2023 9:58 AM [facility] MPV 8.1 6.5 - 11.0 fL 09/13/2023 9:58 AM [facility] Blood BLOOD SPECIMEN / Unknown Venipuncture / Unknown 09/13/2023 9:49 AM DOCUMENTATION LEAD 09/13/2023 9:50 AM DOCUMENTATION LEAD Crista Baird DO HEMATOLOGY [facility] [address] [place] [address], [place] [phone] * VITAMIN B12 (09/13/2023 9:49 AM DOCUMENTATION LEAD) [facility] VITAMIN B12 504 232 - 1,245 pg/mL 09/13/2023 8:18 PM DOCUMENTATION LEAD [facility] Blood BLOOD SPECIMEN / Unknown Venipuncture / Unknown 09/13/2023 9:49 AM DOCUMENTATION LEAD 09/13/2023 9:50 AM DOCUMENTATION LEAD Narrative [facility] - 09/13/2023 8:18 PM DOCUMENTATION LEAD Biotin supplements may cause clinically significant interference for this test assay. ??If interference is suspected, it is strongly recommended that biotin is discontinued for at least one week prior to retesting. Crista Baird DO CHEMISTRY Performing Organization Address [facility] Co de Phone Number [facility] [address] [place] [id number], * (ABNORMAL) XR DXA BONE DENSITY 2 SITES AXIAL (08/10/2022 9:44 AM DOCUMENTATION LEAD) Anatomical Region Laterality Modality Spine, HIPS, HIPL, HIPR Other Impressions 08/12/2022 11:21 AM DOCUMENTATION LEAD Osteoporosis. RECOMMENDATIONS: The National Osteoporosis Foundation recommends [...] to assess therapeutic efficacy. Joslyn Castle PA-C [facility] 08/12/2022 Narrative 08/12/2022 11:21 AM DOCUMENTATION LEAD For Patients: Results are automatically released to your [employer]) account once available, in compliance with federal regulations. This means that you may see your results before your provider has had a chance to review them. Please allow 2-3 business days for your provider to comment on the results. XR DXA Bone Mineral Density (BMD) EXAM LOCATION: [facility] [address] [facility] [address] PATIENT NAME: Blanquita Peterson DATE OF : [...] two scanners are made by the same information clerk cashier. PROCEDURE: Dual-energy x-ray absorptiometry performed with routine [...] probability of hip fracture: 1.3%. Crista Su Shaqra DO DEXA * (ABNORMAL) LIPID PANEL W REFLEX MEASURED LDL (01/14/2022 9:57 AM CDT) [facility] CHOLESTEROL,TOTAL 294(H) 100 - 199 mg/dL 01/14/2022 5:52 PM CDT [facility] TRIGLYCERIDES 124 <150 mg/dL 01/14/2022 5:52 PM CDT [facility] HDL CHOLESTEROL 77 >40 mg/dL 5:52 PM CDT [facility] NON-HDL CHOLESTEROL 217(H) <145 mg/dl 01/14/2022 5:52 PM CDT [facility] CHOL/HDL RATIO 3.82 <4.50 01/14/2022 5:52 PM CDT [facility] LDL CHOLESTEROL 192(H) <=130 mg/dL 01/14/2022 5:52 PM CDT [facility] VLDL CHOLESTEROL 25 <=30 mg/dL 01/14/2022 5:52 PM CDT [facility] PROVIDER ORDERED STATUS RANDOM 01/14/2022 5:52 PM CDT [facility] Blood BLOOD SPECIMEN / Unknown Venipuncture / Unknown 01/14/2022 9:57 AM CDT 01/14/2022 9:57 AM CDT Yanique LEONARD CHEMISTRY [facility] [address] [place] [address], [place] * XR MAMMO BILAT SCREENING (07/28/2017 8:52 AM DOCUMENTATION LEAD) Anatomical Region Laterality Modality BREASTS, Breast Left, Breast Right Bilateral Mammography Impressions 07/28/2017 12:20 PM DOCUMENTATION LEAD ??There is no radiographic evidence for malignancy. ??Recommend annual mammograms. A lay language report of this examination will be provided to the patient. MAMMOGRAM ASSESSMENT: ??ACR 2 Benign Narrative 07/28/2017 12:20 PM DOCUMENTATION LEAD XR MAMMO BILAT SCREENING [[id number]] CLINICAL HISTORY: ??This is an asymptomatic 61 y.o. patient. INDICATION FOR EXAM: Mammogram Screening. TECHNIQUE: CC & MLO views were obtained. ??This digital study was evaluated with the assistance of Computer-Aided Detection. COMPARISON FILMS: Yes 03/19/16 [facility] 11/21/13 [facility] FINDINGS: ??Mammographically, the breast tissue is extremely dense. ??This may lower the sensitivity of mammography. ??No suspicious masses or microcalcifications. ??Benign appearing calcifications within both breasts and Benign appearing asymmetry within left breast. Max Post MD MAMMO * ANTI HCV (09/18/2016 12:32 PM DOCUMENTATION LEAD) HEPATITIS C ANTIBODY Non-Reacti ve Non-Reacti ve 09/18/2016 4:20 PM DOCUMENTATION LEAD [facility] Blood BLOOD SPECIMEN / Unknown Venipuncture / Unknown 09/18/2016 12:32 PM DOCUMENTATION LEAD 09/18/2016 12:32 PM DOCUMENTATION LEAD Narrative [facility] - 09/18/2016 4:20 PM DOCUMENTATION LEAD Antibodies to HCV not detected; does not exclude the possibility of exposure to HCV. Lowell Gil MD SEND OUT[facility] [address] [place] [address], [place] * COLONOSCOPY (06/17/2016 8:51 AM DOCUMENTATION LEAD) 06/17/2016 8:51 AM DOCUMENTATION LEAD Narrative Transcriptions Omid Narvaez MD - 06/17/2016 [...] adequate candidate for conscious sedation. The [id number] was passed through the anus and advanced [...] 8:51 AM Procedure Code(s): --- Professional --- 58490, Colonoscopy, flexible; with biopsy, single or multiple Diagnosis Code(s): --- Professional --- K52.9, Noninfective gastroenteritis and colitis, unspecified CPT copyright 2015 [employer]. All rights reserved. The codes documented in this report are preliminary and upon slag mixer reviewmay be revised to meet current compliance [...] Comments Code Status Discussion: Other Care Teams Service Delivery Consultant Relationship Specialty Start Date End Date Crist[place] [address] [address] [place] [address] PCP - General Family Practice 04/08/22
[2023-11-02 07:12] VITALS: O2SAT 97
[2023-11-02 07:23] LABS: Albumin* 4.5 g/dL (3.3-5.0); Chloride* 105 mmol/L (96-114)
[2023-11-02 07:24] LABS: Potassium* 4.1 mmol/L (3.6-5.1); Sodium* 137 mmol/L (135-149)
[2023-11-02 07:26] LABS: Creatinine* 0.8 mg/dL (0.5-1.5); Est. Creatinine Clearance* 49.12; Estimated Glomerular Filt Rate 81 ml/min
[2023-11-02 07:27] LABS: Alanine Aminotransferase* 22 U/L (4-35); Alkaline Phosphatase* 89 U/L (40-150); Anion Gap 4 mEq/L (7-15); Aspartate Amino Transferase* 29 U/L (12-35); Bilirubin Direct* 0.2 mg/dL (0.0-0.5); Bilirubin Total* 0.4 mg/dL (0.1-1.5); Blood Urea Nitrogen* 20 mg/dL (7-30); Calcium* 9.2 mg/dL (8.4-10.6); Carbon Dioxide* 28 mmol/L (20-32); Glucose* 90 mg/dL (60-115); Total Protein* 7.9 g/dL (6.0-8.3)
[2023-11-02 07:28] LABS: Magnesium* 2.2 mg/dL (1.5-2.6)
[2023-11-02 07:29] LABS: D Dimer Quantitative* 0.76 ug/ml (0.00-0.50)
[2023-11-02 07:30] LABS: C Reactive Protein* < 0.5 mg/dL (0.5-1.0)
[2023-11-02 07:39] LABS: NT Pro B Type NatriureticPept* 68 pg/mL; Troponin I* < 0.01 ng/mL (0.01-0.04)
[2023-11-02 07:47] LABS: Appearance Urine Clear (Clear); Bilirubin Urine Negative (Negative); Blood Urine Negative (Negative); Color Urine Yellow (Yellow); Glucose Urine Negative (Negative); Ketones Urine Negative (Negative); Leukocyte Esterase Urine Negative (Negative); Nitrite Urine Negative (Negative); Protein Urine Negative (Negative); Urobilinogen Urine 0.2 (0.2-1.0)
[2023-11-02 07:48] LABS: PCR FLU A Negative PCR FLU A (Negative); PCR FLU B Negative PCR FLU B (Negative); PCR RSV Negative PCR RSV (Negative); SARS PCR* Negative SARS-CoV-2 (Negative)
[2023-11-02 07:49] LABS: Thyroid Stimulating Hormone* 0.272 uIU/mL (0.270-4.20)
--- NOTE | 2023-11-02 08:00 | CT_ITS ---
Patient: BERNABE GUTIERREZ Facility:?[facility] Patient ID:?[id number] Site Patient ID:?[id number]. Site :?[id number] Study:?CT-Chest PE 95CC ISOVUE 370-11/02/2023 8:56:57 AM Ordering Physician:?DR. PEARSON Final Report: INDICATION: Intermittent chest pressure. Dyspnea with exertion. Fatigue. Elevated D-dimer COMPARISON: None TECHNIQUE: : CT examination of the chest was performed with the uneventful intravenous administration of 95 cc of Isovue 370 while thin axial sections were obtained from above the apices of the lungs to the lung bases. Please note that all CT scans at this facility use dose modulation, iterative reconstruction, and/or weight-based dosing when appropriate to reduce radiation dose to as low as reasonably achievable. FINDINGS: : HEART and MEDIASTINUM: The heart size is normal. There is no mediastinal or hilar adenopathy or mass. There is no pericardial effusion. PULMONARY ARTERIAL CIRCULATION: There is no visible intraluminal filling defect to suggest pulmonary embolus. The central pulmonary artery is prominent measuring 3.5 centimeters. This may indicate pulmonary hypertension LUNGS: The lungs show no focal consolidation or mass. Minimal basilar opacities especially on the left likely atelectasis. There is no finding of pneumonia. The airways appear normal. PLEURAL SPACES: There is no pleural effusion, pneumothorax or pleural based mass. VISUALIZED UPPER ABDOMEN: The limited visualized upper abdominal structures appear normal. OSSEOUS STRUCTURES: Age-appropriate appearance. No acute fracture or destructive process. TUBES and LINES: None. IMPRESSION: 1. There is no indication of pulmonary embolus. 2. The central pulmonary artery is prominent measuring about 3.5 centimeter. This may indicate pulmonary hypertension 3. Aside from trace basilar atelectasis, the lungs appear normal. No evidence of pneumonia. No pleural effusion or pneumothorax. Please note that all CT scans at this facility use dose modulation, iterative reconstruction, and/or weight-based dosing when appropriate to reduce radiation dose to as low as reasonably achievable. Dictated by Jacky Roche MD @ 11/02/2023 9:07:10 AM Signed by:?Jacky Roche MD @11/02/2023 9:07:10 AM (Electronic Signature)
[2023-11-02 08:12] LABS: RBC Urine 0-2 (0-2); WBC Urine 0-2 (0-5)
[2023-11-02] MEDS: 0.9 % SODIUM CHLORIDE 500 ML 500 ML IV (08:39)
[2023-11-02 09:05] VITALS: BP 131/69; PULSE 80; O2SAT 96
[2023-11-02 09:48] VITALS: BP 148/76; PULSE 86; O2SAT 96
== END 2023-11-02 09:47 | disposition home or self-care (01) ==
PROVIDERS: Emergency Provider Family Medicine; PCP Family Medicine
DX: R07.89 Other chest pain (principal); R53.83 Other fatigue
CPT/HCPCS: 36415; 71046; 71275; 80048; 80076; 81001; 83735; 83880; 84443; 84484; 85025; 85379; 86140; 87631; 94761; 96360; 99284; 99285; J7030; Q9967

== ENCOUNTER 2024-04-10 14:58 | Emergency (ER) | payer MEDICARE, BC, SELFPAY ==
[2024-04-10 15:19] VITALS: BP 165/99; PULSE 71; RESP 16; TEMP 36.9; O2SAT 97; BMI 24.1
--- NOTE | 2024-04-10 15:21 | CRLHL7_ITS ---
For Patients: As a result of the Century Cures Act, medical imaging exams and procedure reports are released immediately into your electronic medical record. You may view this report before your referring provider. If you have questions, please contact your health care provider. Indication: Fall Technique: Three views of the left wrist Comparison: None Findings/impression : Tiny linear lucency is identified at the palmar aspect of the distal radius seen only on the lateral view, suggestive of an incomplete nondisplaced fracture. Associated adjacent soft tissue swelling is noted. No other acute fracture, dislocation or suspicious bony lesion. Moderate to severe degenerative changes at the thumb carpometacarpal joint, other joints are preserved. Dictated by Malachi Stewart MD @ 04/10/2024 4:43:59 PM (Electronically Signed)
--- NOTE | 2024-04-10 16:06 | ED_ITS ---
HPI - Fall General Time Seen by Provider: 16:06 Date Seen: 04/10/24 Chief Complaint: Fall/Minor Trauma Stated Complaint: arm pain - fall Time Seen by Provider: 04/10/24 15:21 Source: patient and RN notes reviewed Mode of arrival: ambulatory Limitations: no limitations History of Present Illness HPI Narrative: This 62-year-old female is coming in with concern of possible left wrist injury. She states it hurts in her wrist. She was caring her granddaughter in the night and landed on the outstretched wrist. She has tried ice and ibuprofen but there was significant swelling and pain with range of motion prompting her to be evaluated. She denies any numbness tingling. Nothing else was injured. She denies any blood thinners. She does not tolerate Tylenol, makes her sick to her stomach. She will use ibuprofen for pain management. Related Data Home Medications ?Medication ?Instructions ?Recorded ?Confirmed diphenhydramine HCl 25 mg tablet 25 mg PO QID PRN 03/12/22 11/01/23 (Allergy (diphenhydramine)) levothyroxine 112 mcg tablet 112 mcg PO DAILY 03/12/22 11/01/23 lorazepam 0.5 mg tablet 0.5 mg PO TID PRN 03/12/22 11/01/23 ibuprofen 200 mg tablet (Advil) 400 mg PO .Q4-QH PRN 03/26/22 11/01/23 levocetirizine 5 mg tablet (24HR 5 mg PO BID 03/26/22 11/01/23 Allergy Relief) amlodipine 5 mg tablet 5 mg PO DAILY 07/13/22 11/01/23 cholecalciferol (vitamin D3) 125 125 mcg PO DAILY 07/14/22 11/01/23 mcg (5,000 unit) tablet fluoxetine 20 mg tablet mg PO 11/01/23 mirtazapine 15 mg tablet 15 mg PO BID PRN anxiety 11/01/23 11/01/23 Previous Rx's ?Medication ?Instructions ?Recorded hydrochlorothiazide 25 mg tablet 25 mg PO QAM #14 tabs 11/02/23 Allergies Allergy/AdvReac Type Severity Reaction Status Date / Time gelatin AdvReac Mild GI upset- Verified 11/02/23 08:53 gelatin capsules acetaminophen [From Tylenol] AdvReac Unknown Verified 11/02/23 08:53 Review of Systems Narrative: As per HPI. 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 - Mast cell activation, unspecified (ICD-10) Benzodiazepine dependence ?F13.20 - Sedative, hypnotic or anxiolytic dependence, uncomplicated (ICD-10) Protein calorie malnutrition ?E46 - Unspecified protein-calorie malnutrition (ICD-10) Normal colonoscopy Dysthymic disorder ?F34.1 - Dysthymic disorder (ICD-10) Hyperlipidemia ?E78.5 - Hyperlipidemia, unspecified (ICD-10) Menopausal symptoms ?N95.1 - Menopausal and female climacteric states (ICD-10) Ganglion cyst ?M67.40 - Ganglion, unspecified site (ICD-10) History of migraine ?Z86.69 - Personal history of other diseases of the nervous system and sense organs (ICD-10) Functional diarrhea ?K59.1 - Functional diarrhea (ICD-10) Depression ?F32.A - Depression, unspecified (ICD-10) Chronic pain ?G89.29 - Other chronic pain (ICD-10) History of Clostridioides difficile infection (2012) ?Z86.19 - Personal history of other infectious and parasitic diseases (ICD- 10) Seasonal allergies ?J30.2 - Other seasonal allergic rhinitis (ICD-10) Hypothyroidism ?E03.9 - Hypothyroidism, unspecified (ICD-10) Pelvic floor dysfunction ?M62.89 - Other specified disorders of muscle (ICD-10) Anxiety ?F41.9 - Anxiety disorder, unspecified (ICD-10) Surgical History History of vaginal hysterectomy (05/2005) ?Z90.710 - Acquired absence of both cervix and uterus (ICD-10) History of carpal tunnel surgery of left wrist (04/23/09) ?Z98.890 - Other specified postprocedural states (ICD-10) History of hernia repair (06/07/18) ?Z98.890 - Other specified postprocedural states (ICD-10) ?Z87.19 - Personal history of other diseases of the digestive system (ICD-10) Family History Sister Asthma Hypothyroidism Father Jaw cancer Mother Thyroid cancer Breast cancer Stroke Grandfather Coronary artery disease Grandmother Myocardial infarction Grandfather Leukemia Social History Narrative: . was here with her earlier. Denies tobacco, EtOH, or recreational drug use. FULL CODE. Highest level of school completed/degree received: Bachelor's degree Smoking Status: Never smoker Do you use any of these nicotine containing products: None Second hand tobacco smoke exposure: No How often do you have a drink containing alcohol: never How often do you have six or more drinks on one occasion: Never AUDIT-C Alcohol total score: 0 Non-prescribed substance use: denies use Caffeine: Yes (1 cup coffee daily) service: No Exam Const: Vital Signs, click to edit/add: Vital Signs - 24 hr 04/10/24 15:19 Temperature 98.4 F Pulse Rate [Right Pulse Oximeter] 71 Respiratory Rate 16 Blood Pressure [Ri ght Upper Arm] 165/99 H Pulse Oximetry 97 Oxygen Delivery Me thod Room Air Patient is alert, interactive, no apparent distress, ambulatory into the ED of her own accord. Nursing staff did give ice pack on arrival. On inspection there is lateral swelling and ecchymosis over the wrist that does extend down to the base of the hand. Neurovascular intact in the fingers. Movement of the wrist or hand does cause pain isolated to the hand. More of her pain seems to be on the radial surface, there is swelling over the snuffbox but the pain is concentrated more over the distal radius. No pain into the forearm, elbow, upper arm or shoulder. Documenting provider has reviewed patient's vital signs: yes Course Course ED Course: Nursing staff appropriately ordered x-ray imaging on arrival, provided ice. I was able to see her images prior to seeing her. Looks like there is a nondisplaced distal radius fracture. She does have some arthritis in the 1st carpal metacarpal joint that I can see. I do not appreciate any carpal bone fractures. We will await Radiology over-read and in the meantime I have splinted her with a dorsal-volar splint. Reevaluation(s) Time of Reevaluation #1: 17:11 Reevaluation #1: Patient's x-ray reading is back, small distal radius fracture. Splint is appropriate. She is requesting dose of ibuprofen and 600 mg ibuprofen ordered. Plan will be to discharge to home with splint on, follow up with Orthopedics. Vital Signs Vital signs: Initial Vital Signs Temperature 98.4 F 04/10/24 15:19 Temperature Source Temporal Artery Scan 04/10/24 15:19 Pulse Rate 71 04/10/24 15:19 Pulse Rhythm Regular 04/10/24 15:19 Pulse Strength 3+ Normal 04/10/24 15:19 Respiratory Rate 16 04/10/24 15:19 Blood Pressure 165/99 H 04/10/24 15:19 Blood Pressure Mean 121 H 04/10/24 15:19 Blood Pressure Position Sitting 04/10/24 15:19 Pulse Oximetry 97 04/10/24 15:19 Oxygen Delivery Method Room Air 04/10/24 15:19 Vital Signs Temperature 98.4 F 04/10/24 15:19 Pulse Rate 71 04/10/24 15:19 Respiratory Rate 16 04/10/24 15:19 Blood Pressure 165/99 H 04/10/24 15:19 Pulse Oximetry 97 04/10/24 15:19 Oxygen Delivery Method Room Air 04/10/24 15:19 Temperature 98.4 F 04/10/24 15:19 Pulse Rate 71 04/10/24 15:19 Respiratory Rate 16 04/10/24 15:19 Blood Pressure 165/99 H 04/10/24 15:19 Pulse Oximetry 97 04/10/24 15:19 Oxygen Delivery Method Room Air 04/10/24 15:19 MDM - Fall Imaging Data XR left wrist: Attestation: I have reviewed the pertinent imaging results. Radiologist's impression: Patient: BERNABE GUTIERREZ Facility:?[facility] Patient ID:?[id number] Site Patient ID:?[id number]. Site :?[id number] Study:?XRay-Extremity Left WRIST 3 VIEWS-04/10/2024 4:08:15 PM Ordering Physician:Julius Gamble Final Report: Indication: Fall Technique: Three views of the left wrist Comparison: None Findings/impression : Tiny linear lucency is identified at the palmar aspect of the distal radius seen only on the lateral view, suggestive of an incomplete nondisplaced fracture. Associated adjacent soft tissue swelling is noted. No other acute fracture, dislocation or suspicious bony lesion. Moderate to severe degenerative changes at the thumb carpometacarpal joint, other joints are preserved. Dictated by Malachi Stewart MD @ 04/10/2024 4:43:59 PM (Electronic Signature) Discharge Plan Discharge Clinical Impression: Distal radius fracture, left Qualifiers: Encounter type: initial encounter Fracture type: closed Fracture morphology: unspecified fracture morphology Qualified Code(s): S52.502A - Unspecified fracture of the lower end of left radius, initial encounter for closed fracture Patient Disposition: Home, Self-Care Condition: Stable Instructions: Wrist Fracture in Adults (ED) Additional Instructions: Need to leave splint on and keep dry. Can use sling as needed for helping elevate your arm while you are mobile and for comfort. Do recommend elevating your wrist above heart level as much as possible the next 3-5 days to help decrease swelling. Can put some ice on your fingers or in the elbow area, ice is not likely to get through the splint material. Use ibuprofen per bottle directions as needed for pain control. Please call the Orthopedic office at [phone] to get scheduled for a follow-up. Activity Level: Activity as Tolerated Prescriptions: No Action diphenhydramine HCl [Allergy (diphenhydramine)] 25 mg tablet 25 mg PO QID PRN lorazepam 0.5 mg tablet 0.5 mg PO TID PRN Patient Comments: TAKE ONE TABLET BY MOUTH (0.5MG) BY MOUTH 3 TIMES DAILY IF NEEDED FOR ANXIETY. levothyroxine 112 mcg tablet 112 mcg PO DAILY Patient Comments: TAKE 1 TABLET (112 MCG) BY MOUTH BEFORE BREAKFAST. ibuprofen [Advil] 200 mg tablet 400 mg PO .Q4-QH PRN levocetirizine [24HR Allergy Relief] 5 mg tablet 5 mg PO BID hydrochlorothiazide 25 mg tablet 25 mg PO QAM Qty: 14 0RF amlodipine 5 mg tablet 5 mg PO DAILY cholecalciferol (vitamin D3) 125 mcg (5,000 unit) tablet 125 mcg PO DAILY fluoxetine 20 mg tablet PO mirtazapine 15 mg tablet 15 mg PO BID PRN (Reason: anxiety) Follow Up/Referrals: Crista Baird DO [Primary Care Provider] - Stand Alone [facility] Inst[facility] Procedures Orthopedic Splinting/Casting Injury #1: Side: left Upper Extremity Injury Location: wrist Upper extremity immobilizer: short arm (Dorsal-volar splint using Ortho Glass) Applied by clinician: MD/DO Conclusion: patient tolerated procedure Additional Comments: Sling provided for comfort.
--- OUTSIDE RECORDS SUMMARY | 2024-04-10 16:43 | XMS_ITS | Clinical Summary ---
Author Organization [employer] Address [place], [place] [address] Care Team Providers Care [employer] Name Role Phone Crista Baird DO Primary Care Provider [phone] Allergies Active Allergy Reactions Criticality Noted Date Comments Acetaminophen *Unknown Unknown 07/13/2022 Citalopram Anxiety Unknown 09/18/2016 Wing Diarrhea Unknown 02/15/2012 Egg Diarrhea 04/21/2023 Gelatin [...] mouth two times daily. 0 03/23/2023 Active levothyroxine (SYNTHROID) 88 mcg tabletIndications :Hypothyroidism, unspecified type Take 1 Tablet (88 mcg) by mouth before breakfast. 90 Tablet 3 09/13/2023 Active albuterol HFA (ProAir HFA) 90 mcg/actuation inhalerIndication s:Bronchitis with bronchospasm Inhale 1-2 Puffs by mouth every 6 hours if needed for Shortness of Breath 1st choice. 1 Each 09/30/2023 Active hydroCHLOROthiazi de 25 mg tablet Take 25 mg by mouth every morning. 11/02/2023 Active losartan (COZAAR) 50 mg tabletIndications :Primary hypertension Take 1 Tablet (50 mg) by mouth once daily. 90 Tablet 3 2023 Active losartan-hydrochl orothiazide (HYZAAR) 100-25 mg tabletIndications :Primary hypertension Take 1 Tablet by mouth once daily. 90 Tablet 3 11/30/2023 Active FLUoxetine 20 mg tabletIndications :Anxiety with somatic features,Recurren t major depressive disorder, in partial remission (HC) Take 2 Tablets (40 mg) by mouth once daily in the morning. 180 Tablet 1 01/13/2024 Active mirtazapine (REMERON) 15 mg tabletIndications :Anxiety with somatic features,Recurren t major depressive disorder, in partial remission (HC) Take 1 tablet nightly at bedtime and 1 tablet daily as needed for anxiety. 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 Per chart: Met with an program instructor in 2018. At that time Dr. Sanders did not feel like she was having excessive histamine secretion and did not feel that she was dealing with a food allergy. Depression, recurrent 06/30/2022 Controlled substance agreement signed 06/05/2022 Overview (06/05/2022): 06/05/22, Kamryn Orlando MD. Psychiatry Benzodiazepine dependence 10/01/2021 Controlled substance agreement signed 04/29/2021 Overview (04/29/2021): 04/10/21 Kamryn Orlando MD/Psychiatry Depression, reactive 03/23/2019 Controlled substance agreement signed 09/30/2018 Overview (09/30/2018): Signed 09/30/18 [facility] psychiatry Anxiety with somatic features 08/31/2018 Anxiety 09/18/2016 Functional diarrhea 06/19/2016 Overview (06/19/2016): Colonoscopy 06/2016 normal, repeat in 10 years, recommend EGD Pelvic floor dysfunction 04/20/2016 UTI (lower urinary tract infection) 03/22/2013 Dysthymic disorder 01/25/2013 Hyperlipidemia 09/04/2011 Ganglion cyst 04/02/2008 Menopausal symptoms Hypothyroidism Resolved Problems Problem Noted Date Diagnosed Date Resolved Date Protein-calorie malnutrition 10/01/2021 11/30/2023 Controlled substance agreement signed 06/16/2019 06/05/2022 Overview (06/16/2019): Signed 06/13/19 Dr Kamryn Orlando Psychiatry Renal insufficiency 04/24/2017 05/17/20 Controlled substance agreement signed 12/10/2016 08/31/2018 Overview (12/10/2016): Signed: 05/04/16 Dr. Max Post MD / psychiatry C. difficile diarrhea 12/16/20122013 Encounters Date Type Department Care Team Description 04/05/2024 8:30 AM CDT Procedure Only [facility] [address] [place] [address] Romana Julian, L Ac Acupuncture 04/05/2024 Travel 03/21/2024 1:00 PM CDT Procedure Only [facility] [address] [place] [address] Romana Julian, L Ac Acupuncture 03/21/2024 Travel 02/03/2024 Telephone [facility] [address] [place] [address] Kamryn Orlando MD Medication Management (Fluoxetine Tablets 20 mg Fluoxetine Capsule 20 mg/) 01/25/2024 9:00 AM CDT Procedure Only [facility] [address] [place] [address] Romana Julian, Maura Ac Acupuncture 01/24/2024 11:00 AM CDT Procedure Only [facility] [address] [place] [address] Romana Julian, L Ac Acupuncture 01/24/2024 Travel 01/14/2024 Telephone [facility] [address] [place] [address] Crista Baird, Medication Management (levothyroxine (SYNTHROID) 88 mcg tablet ) 01/13/2024 8:15 AM CDT Telemedicine [facility] [address] [place] [address] Kamryn Orlando MD Telehealth; Medication Management (Follow up) 01/13/2024 Travel from Last 3 Months Immunizations Name Administration Dates Next Due COVID-19 vaccine (Moderna 10 0mcg/0.5mL) PFJUAN DANIEL 08/29/2020 Influenza A (H1N1), Inactivated 08/07/2009 Influenza, [...] Answer Date Recorded PHQ-2 TOTAL SCORE 1 01/13/2024 Social Connections Answer Date Recorded Frequency of Communication with Friends and Fami ly 0 03/21/2024 Financial Resource Strain Answer Date R ecorded Difficulty of Paying Living Expenses 3 03/21/2024 Difficulty of Paying Living Expenses Not on file 03/21/2024 Food Insecurity Answer Date Recorded Worried About Running Out of Food in the Last Ye ar 1 03/21/2024 Transportation Needs Answer Date Record ed Lack of Transportation (Medical) 1 03/21/2024 Housing Stability Answer Date Recorded Unable to Pay for Housing in the Last Year 1 03/21/2024 Sex and Gender Information Value Date Recorded Sex Assigned at Not on file Gender Identity Not on file Sexual Orientation Not on file Obstetrics History Last Filed Vital Signs Vital Sign Reading Time Taken Comments Blood Pressure 147/77 11/30/2023 9:57 AM CDT Pulse 91 11/30/2023 9:57 AM CDT Temperature 36.7 ??C (98.1 ??F) 09/30/2023 10:22 AM C DT Respiratory Rate 17 12/24/2022 8:00 AM CDT Oxygen Saturation 98% 11/30/2023 9:57 AM CDT Inhaled Oxygen Concentration - - Weight 65.1 kg (143 lb 8 oz) 11/30/2023 9:57 AM CDT Height 165.1 cm (5' 5) 09/13/2023 9:00 AM PARTS ADVISOR Body Mass Index 23.88 09/13/2023 9:00 AM PARTS ADVISOR Plan of Treatment Upcoming Encounters Date Type Department Care Team (Late st Contact Info) Description 04/19/2024 8:30 AM CDT Procedure Only [facility] [address] [place] [address] Romana Julian L Ac [address] [place] [address] 05/10/2024 8:30 AM CDT Procedure Only [facility] [address] [place] [address] Romana Julian L Ac [address] [place] [address] 05/11/2024 8:15 AM CDT Telemedicine [facility] [address] [place] [address] Kamryn Orlando MD [address] [place] [address] Health Maintenance Due Date Last Done Comments Zoster (shingles) series for age 50+ (2 of 3) 03/01/2012 01/05/2012 Mammogram for age 45-75 07/28/2018 07/28/19 18, 03/19/2016, 11/21/2013, Additional history exists Pneumococcal series for age 65+ (1 of 1 - PCV) 11/07/2020 Medicare Wellness for age 65+ 07/01/2023 06/30/2022 COVID-19 vaccine series ( season) 2024 06/24/2021, 09/26/2020, 08/29/2020 Influenza for age 65+ 03/19/2024 05/20/2012 , 05/04/2011, 04/23/2010, Additional history exists BMI (ht and wt on same day) for age 18+ 09/13/2024 09/13/2023, 06/30/2022, 01/14/2022, Additional history exists Depression screening for age 12+ 01/13/2025 01/14/2024, 01/13/2024, 09/30/2023, Additional history exists Colonoscopy through age 75 06/17/202606/17, 06/17/2016, 07/23/2006 Lipids for age 45-75 01/14/2027 01/14/2022, 08/08/2020, 03/16/2016, Additional history exists Tetanus booster 05/30/2028 05/30/2018, 04/02/2008 Hepatitis C screening for ag e 18-79 Completed 09/18/2016 Tdap Completed 05/30/2018, 04/02/2008 DEXA/DXA scan for age 65+ Completed 08/10/2022 Procedures Procedure Name Priority Date/Time Associated Diagnosis Comments ACUPUNCTURE PLAN OF CARE Routine 04/05/2024 8:15 AM CDT Other low back pain ACUPUNCTURE PLAN OF CARE Routine 03/21/2024 3:29 PM CDT Other low back pain ACUPUNCTURE PLAN OF CARE Routine 01/25/2024 8:45 AM CDT Other low back pain ACUPUNCTURE PLAN OF CARE Routine 01/24/2024 3:49 PM CDT Other low back pain ACUPUNCTURE PLAN OF CARE Routine 01/24/2024 10:52 AM CDT Other low back pain XR DXA BONE DENSITY 2 SITES AXIAL Routine 08/10/2022 9:44 AM PARTS ADVISOR Postmenopausal LIPID PANEL W REFLEX MEASURED LDL Routine 01/14/2022 9:57 AM CDT Hyperlipidemia, unspecified hyperlipidemia type XR MAMMO BILAT SCREENING Routine 07/28/2017 8:52 AM PARTS ADVISOR Visit for screening mammogram ANTI HCV Routine 09/18/2016 12:32 PM PARTS ADVISOR Need for hepatitis C screening test COLONOSCOPY 06/17/2016 8:51 AM PARTS ADVISOR from Last 3 Months or Most Recently Relevant to Health Maintenance Results * (ABNORMAL) XR DXA BONE DENSITY 2 SITES AXIAL (08/10/2022 9:44 AM PARTS ADVISOR) Anatomical Region Laterality Modality Spine, HIPS, HIPL, HIPR Other Impressions 08/12/2022 11:21 AM PARTS ADVISOR Osteoporosis. RECOMMENDATIONS: The National Osteoporosis Foundation recommends [...] to assess therapeutic efficacy. Joslyn Castle PA-C [facility] 08/12/2022 Narrative 08/12/2022 11:21 AM PARTS ADVISOR For Patients: Results are automatically released to your [facility] (disco volante) account once available, in compliance with federal regulations. This means that you may see your results before your provider has had a chance to review them. Please allow 2-3 business days for your provider to comment on the results. XR DXA Bone Mineral Density (BMD) EXAM LOCATION: [address] [address] PATIENT NAME: Blanquita Peterson DATE OF : 1955 EXAM DATE: 08/10/2022 REQUESTING PROVIDER: Crista Baird DO GENDER AT : female HEIGHT: 5' [...] two scanners are made by the same ict support engineer. PROCEDURE: Dual-energy x-ray absorptiometry performed with routine [...] 10-year probability of hip fracture: 1.3%. Crista Baird DO DEXA * (ABNORMAL) LIPID PANEL W REFLEX MEASURED LDL (01/14/2022 9:57 AM CDT) [facility] CHOLESTEROL,TOTAL 294(H) 100 - 199 mg/dL 01/14/2022 5:52 PM CDT [facility] TRIGLYCERIDES 124 <150 mg/dL 01/14/2022 5:52 PM CDT [facility] HDL CHOLESTEROL 77 >40 mg/dL 5:52 PM CDT [facility] NON-HDL CHOLESTEROL 217(H) <145 mg/dl 01/14/2022 5:52 PM CDT [facility] CHOL/HDL RATIO 3.82 <4.50 01/14/2022 5:52 PM CDT [facility] LDL CHOLESTEROL 192(H) <=130 mg/dL 01/14/2022 5:52 PM CDT [facility] VLDL CHOLESTEROL 25 <=30 mg/dL 01/14/2022 5:52 PM CDT [facility] PROVIDER ORDERED STATUS RANDOM 01/14/2022 5:52 PM CDT [facility] Blood BLOOD SPECIMEN / Unknown Venipuncture / Unknown 01/14/2022 9:57 AM CDT 01/14/2022 9:57 AM CDT Yanique LEONARD CHEMISTRY [facility] [address] [place] [address], * XR MAMMO BILAT SCREENING (07/28/2017 8:52 AM PARTS ADVISOR) Anatomical Region Laterality Modality BREASTS, Breast Left, Breast Right Bilateral Mammography Impressions 07/28/2017 12:20 PM PARTS ADVISOR ??There is no radiographic evidence for malignancy. ??Recommend annual mammograms. A lay language report of this examination will be provided to the patient. MAMMOGRAM ASSESSMENT: ??ACR 2 Benign Narrative 07/28/2017 12:20 PM PARTS ADVISOR XR MAMMO BILAT SCREENING [[id number]] CLINICAL HISTORY: ??This is an asymptomatic 61 y.o. patient. INDICATION FOR EXAM: Mammogram Screening. TECHNIQUE: CC & MLO views were obtained. ??This digital study was evaluated with the assistance of Computer-Aided Detection. COMPARISON FILMS: Yes 03/19/16 [facility] 11/21/13 [facility] FINDINGS: ??Mammographically, the breast tissue is extremely dense. ??This may lower the sensitivity of mammography. ??No suspicious masses or microcalcifications. ??Benign appearing calcifications within both breasts and Benign appearing asymmetry within left breast. Max Post MD MAMMO * ANTI HCV (09/18/2016 12:32 PM PARTS ADVISOR) HEPATITIS C ANTIBODY Non-Reacti ve Non-Reacti ve 09/18/2016 4:20 PM PARTS ADVISOR [facility] Blood BLOOD SPECIMEN / Unknown Venipuncture / Unknown 09/18/2016 12:32 PM PARTS ADVISOR 09/18/2016 12:32 PM PARTS ADVISOR Narrative [facility] - 09/18/2016 4:20 PM PARTS ADVISOR Antibodies to HCV not detected; does not exclude the possibility of exposure to HCV. Lowell Gil MD SEND OUTS [facility] [address] [place] [address], [place] * COLONOSCOPY (06/17/2016 8:51 AM PARTS ADVISOR) 06/17/2016 8:51 AM PARTS ADVISOR Narrative Transcriptions Omid Narvaez MD - 06/17/2016 [...] adequate candidate for conscious sedation. The [id number] was passed through the anus and advanced [...] 8:51 AM Procedure Code(s): --- Professional --- 54418, Colonoscopy, flexible; with biopsy, single or multiple Diagnosis Code(s): --- Professional --- K52.9, Noninfective gastroenteritis and colitis, unspecified CPT copyright 2015 [employer]. All rights reserved. The codes documented in this report are preliminary and upon wedding transportation driver reviewmay be revised to meet current compliance requirements. Scope In: 9:30:47 AM Scope Withdrawal Time 0 hours 9 minutes 41 seconds Scope Out: 9:51:24 AM Omid Naravez MD PROCEDURE ORD from Last 3 Months or Most Recently Relevant to Health Maintenance Advance Directives * Full Code (Latest Code Status on File) Date Activated Date Inactivated Comments 12/19/2022 8:28 PM 12/24/2022 4:16 PM Question Answer Comments Code Status Discussion: Other Care Teams [employer] Relationship Specialty Start Date End Date Crista Baird DO [address] [place] [address] PCP - General Family Practice 04/08/22
[2024-04-10] MEDS: IBUPROFEN 200 MG TABLET 600 MG PO (17:19)
== END 2024-04-10 17:28 | disposition home or self-care (01) ==
PROVIDERS: Emergency Provider Family Medicine; PCP Family Medicine
DX: S52.502A Unspecified fracture of the lower end of left radius, initial encounter for closed fracture (principal); W01.0XXA Fall on same level from slipping, tripping and stumbling without subsequent striking against object, initial encounter
CPT/HCPCS: 29125; 73110; 99283; A9270

== ENCOUNTER 2024-05-31 08:45 | Outpatient (RCR) | payer MEDICARE, BC, SELFPAY ==
--- NOTE | 2024-05-10 12:17 | OT.OPOE ---
OT Outpatient Ortho Eval OT Outpatient Ortho Eval* Start: 05/10/24 11:08 Freq: Status: Active Protocol: Document 05/10/24 11:14 LCN (Rec: 05/10/24 11:47 LCN [id number]) E-signed By Susan Oliveira, OTR/L, CLT OT OP Ortho Eval Details Complexity Complexity Low Insurance Information Insurance Information Blue Cross/Blue Shield, Medicare B Outpatient History/Precautions Current Condition/Medical Diagnosis Referring Provider Donavan Galloway PA-C Medical Diagnoses L distal radius Fracture Treatment Diagnosis wrist stiffness,wakness after casting Date of Onset 04/10/24 Other Conditions MCAS, Dysthymia, anxiety, migraines,. H/O C Diff 2012 and GI diarrheal issues w extra help at [facility]. L wrist ganglion cyst removal > 15 yrs/ ago. R MP instability from a TH disolcoationinjry w soccer ball> 10 yrs ago. Medical/Functional History Medical History Reviewed Yes Prior Level of Function/Mobility Pt fully independent at high community level. Enjoys heavy gardening and yard care. 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 While rocking back to sleep 1 am, child flipped head back wards, pt securing child w R hand fell to side on outstretched hand. Came to ER when she got home on . Casting removed with Ortho clinic 05/09/24 a bit early due to swelling, cast padding came loose, now in velcro wrist splint with dorsal, volar stays. Having residual wrist stiffness and weakness. Guided to keep <2# weight restriction/coffee cup and brace off only for showering and HEP. REturns to clinic for X-rays and likely d /c splint at that time. L CMC OA also noted but not recently flared, feels better with cast off. (Incomplete fracture at volar cortex of distal radius metaphysis). Pain Assessment Pain Pain Yes Pain Comments 3/10 dorsal wrist Range of Motion and Strength Wrist Range of Motion and Strength Wrist Range of Motion and Strength L SH and elbow WNL. Supination to 80 of 90 and pronation 90 of 90. WR EX 35 of 70 ( tender volar crease) WR FL 60 of 80 ( tender dorsal crease). RD 5 of 20, UD 30 of 40. Full hand closure with hook to fist, WNL TH [place]. EDEMA-- Mild dorsal wrist pocke, digit shafts look good. Tetragrip E liners issued, comfortable. Hand Pinch/Vp Client Services Strength Hand Pinch/Vp Client Services Strength Hand Pinch/Vp Client Services Strength Left Hand,Right Hand Left Hand Vp Client Services Strength Position 1 in Elbow 0 Flexion (lbs) Right Hand Vp Client Services Strength Position 1 in Elbow 45 Flexion (lbs) Lateral Pinch Strength (lbs) 8 Three Point Pinch (lbs) 15 OT Problems Problems Problems Decreased Strength,Decreased Range of Motion,Decreased Dexterity,Pain,Lifting, Gripping,Pinching Problems Comments food prep and gardening tasks. Injury is on Left, dominant hand. Other Problems Opening Containers Assessment Assessment Assessment Functionally, it is hard to fold laundry, open food packaging, typing, unzipping purse and carrying stacks of dishes.?Has been having partner do more of the cooking and cleaning. Limited to gentle pinching of food packages, lifting a light cup with L hand. Blanquita Peterson is a 68 active female who fractured L distal radius and is now having mild edema, pain, ROM and strength loss of L hand/wrist limiting daily tasks. She would benefit from skilled OT to address these areas. In 8 weeks, pt will demonstrate:? 1) Decreased pn to <2/10 80% of the time with sustained gripping, carrying groceries, reading books and weeding. 2) I HEP for stretching, gradual strengthening and self mgmt strategies. 3) improved L wallpaper remover steam strength to 15# and pinch to 10# with L thumb pain < 1/10. 4)??Pt to be fit with functional bracing (for CMC, wrist,) and use adaptive strategies to protect joint integrity to support less pain with ADL. Occupational Therapy Treatment Plan - OP Potential Rehabilitation Potential Excellent Set Goals Goals Set with Patient Yes Goals Goals In 8 weeks, Blanquita will demonstrate:? 1) Decreased pn to <2/10 80% of the time with sustained gripping, carrying groceries, reading books and weeding. 2) I HEP for stretching, gradual strengthening and self mgmt strategies. 3) improved L wallpaper remover steam strength to 35# and pinch to 12# with L wrist/thumb pain < 1/10. Treatment Plan Treatment Plan Evaluation,Edema Control,Joint Mobilization,Manual Therapy, Splinting,Therapeutic Exercise ,Self Care/Home Management, Education Expected Frequency 1-2x Week Expected Duration 4-6 Weeks Home Program Home Program Home Program Initiated Home Program Specifics End range holds with 50% pressure for WR EX, WR FL, RD, UD, supination, tendon glides, hook to roll down. Gentle warm water soaks prn before HEP, 3x/day. Certification Certification Statement I Certify That: Therapy Services Provided, Therapy Plan Established, Therapy Plan Reviewed Certification Information Clinic ID # [id number] Initial Certification Date 05/10/24 Recertification Due Date 08/08/24 Provider Signature Required Yes Provider Signature Shows Agreement With POC & Medical Necessity Physician NPI Number Write NPI# Here Physician Comment/Change Comment or Changes Physician Signature & Date Requested Please Sign/Date Here
--- NOTE | 2024-05-31 09:59 | OT.OPODN ---
OT Outpatient Ortho Daily Note OT Outpatient Ortho Daily Note* Start: 05/10/24 11:08 Freq: Status: Active Protocol: Document 05/31/24 09:45 LCN (Rec: 05/31/24 09:59 LCN [id number]) E-signed By Susan Oliveira, OTR/L, CLT Type of Note Type of Note Type of Note Daily Note,Note to MD,Recert/ Progress Note Visit Number 6 Comments Pt sees Ortho clinic 06/09/24 for progressing out of splint, higher lifting precautions likely. Outpatient History/Precautions Current Condition/Medical Diagnosis Referring Provider Donavan Galloway PA-C Medical Diagnoses L distal radius Fracture Treatment Diagnosis wrist stiffness,wakness after casting Date of Onset 04/10/24 Other Conditions MCAS, Dysthymia, anxiety, migraines,. H/O C Diff 2012 and GI diarrheal issues w extra help at [facility]. L wrist ganglion cyst removal > 15 yrs/ ago. R MP instability from a TH disolcoationinjry w soccer ball> 10 yrs ago. Medical/Functional History Medical History Reviewed Yes Prior Level of Function/Mobility Pt fully independent at high community level. Enjoys heavy gardening and yard care. 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 Has some ECU slipping happening at end ROM for wrist flexion and supination using the flex bar today, non tender, but clicking and snapping. Does not happen with her HEP or yard work with brace on. Pt with active hive reaction heavy itching going on after eating different food travelling last weekend ( MCAS affected) from [facility]-- Pt was in [place] caring for 18 month old grand daughter overnight. While rocking back to sleep 1 am, child flipped head back wards, pt securing child w R hand fell to side on outstretched hand. Came to ER when she got home on . Casting removed with Ortho clinic 05/09/24 a bit early due to swelling, cast padding came loose, now in velcro wrist splint with dorsal, volar stays. Having residual wrist stiffness and weakness. Guided to keep <2# weight restriction/coffee cup and brace off only for showering and HEP. REturns to clinic for X-rays and likely d /c splint at that time. L CMC OA also noted but not recently flared, feels better with cast off. (Incomplete fracture at volar cortex of distal radius metaphysis). Pain Assessment Pain Pain Yes Pain Comments 2/10 dorsal wrist during weightbearing 50% pressure OT OP Daily Ortho Note/Assessment Therapeutic Exercise Therapeutic Exercise Minutes (minutes) 15 Therapeutic Exercise Comments Return of HEP, doing well with full arc WR FL, EX, RD, US with red therapy band, wall push ups. In clinic progression of dynamic resisted exercise with yellow flex bar. Manual Therapy Manual Therapy Minutes (minutes) 20 Manual Therapy Comments Grade II joint mobilizations of CMC, wed space, PCR, DRUJ with LLPS, STM of forearm flexors, extensor mm group w increased motion post. Well tolerated. Total Occupational Therapy Time Occupational Therapy Minutes 35 Home Program Home Program Home Program Revised Home Program Specifics 05/24/24-- wall push ups with 50% pressure of weightbearing. 05/22/24-- red band WR EX, FL, RD, UD, hammer turns. 05/17/24--truq/ed putty selling manager, 2 pt and plunkett pinch 05/15/24--End range holds with 50% pressure for WR EX, WR FL , RD, UD, supination, tendon glides, hook to roll down. Gentle warm water soaks prn before HEP, 3x/day. Range of Motion and Strength Wrist Range of Motion and Strength Wrist Range of Motion and Strength L SH and elbow WNL. Supination to 80 of 90 and pronation 90 of 90. WR EX 35 of 70 ( tender volar crease) WR FL 60 of 80 ( tender dorsal crease). RD 5 of 20, UD 30 of 40. Full hand closure with hook to fist, WNL TH [place]. EDEMA-- Mild dorsal wrist pocke, digit shafts look good. Tetragrip E liners issued, comfortable. Goniometric Comments Goniometric Comments Goniometric Comments 05/31/24-- AROM to 65, AA to 75 WR FL 78AROM and 87 AAROM, supination 85 of 90 AAROM. 05/24/24-- AAROM l WR EX to 70 and WR FL to 77 degrees. 05/22/24-- AAROM WR EX to 70, WR FL to 75, RD to 20 of 20. UD 45 of 40.Supination 70 of 90. 05/17/24-- WR EX AAROM 78, WR FL 0-87, RD 10 UD 45 + Bar Supervisor 32# L. Plunkett 15# 3 pt 15# 05/15/24-- Post OT WR EX AROM to 60, AAROM to 75 of degrees. WR FL TO [address] to 15 and UD to 45. Hand Pinch/Bar Supervisor Strength Hand Pinch/Bar Supervisor Strength Hand Pinch/Bar Supervisor Strength Left Hand,Right Hand Left Hand Bar Supervisor Strength Position 1 in Elbow 0 Flexion (lbs) Right Hand Bar Supervisor Strength Position 1 in Elbow 45 Flexion (lbs) Lateral Pinch Strength (lbs) 8 Three Point Pinch (lbs) 15 Comments Comments 05/31/24-- Bar Supervisor 35# no pain. 05/17/24-- Bar Supervisor L 32#, no pain . Plunkett 15# and 3 pt 15#, no pain. OT Problems Problems Problems Decreased Strength,Decreased Range of Motion,Decreased Dexterity,Pain,Lifting, Gripping,Pinching Problems Comments food prep and gardening tasks. Injury is on Left, dominant hand. Other Problems Opening Containers Assessment Assessment Assessment L wrist improving with lifting , sweeping tasks in the garage . Washing dishes goes well. Eats and sleeps with brace off . Occasional shocks of hand/ IF numbness, will monitor closely. Functionally, it is hard to fold laundry, open food lBanquita Peetrson is a 68 active female who fractured L distal radius and is now having mild edema, pain, ROM and strength loss of L hand/wrist limiting daily tasks. She would benefit from skilled OT to address these areas. In 8 weeks, pt will demonstrate:? 1) Decreased pn to <2/10 80% of the time with sustained gripping, carrying groceries, reading books and weeding. 2) I HEP for stretching, gradual strengthening and self mgmt strategies. 3) improved L selling manager strength to 15# and pinch to 10# with L thumb pain < 1/10. 4)??Pt to be fit with functional bracing (for CMC, wrist,) and use adaptive strategies to protect joint integrity to support less pain with ADL. Occupational Therapy Treatment Plan - OP Potential Rehabilitation Potential Excellent Set Goals Goals Set with Patient Yes Goals Goals In 8 weeks, Blanquita will demonstrate:? 1) Decreased pn to <2/10 80% of the time with sustained gripping, carrying groceries, reading books and weeding. 2) I HEP for stretching, gradual strengthening and self mgmt strategies. 3) improved L selling manager strength to 35# and pinch to 12# with L wrist/thumb pain < 1/10. Treatment Plan Treatment Plan Evaluation,Edema Control,Joint Mobilization,Manual Therapy, Splinting,Therapeutic Exercise ,Self Care/Home Management, Education Expected Frequency 1-2x Week Expected Duration 4-6 Weeks Occupational Therapy Billing Units Treatment Minutes Timed Treatment Minutes 35 Total Treatment Minutes 35 Billing Units Manual Therapy 1 Therapeutic Exercise 1 Certification Statement Certification Statement I Certify That: Therapy Services Provided, Therapy Plan Established, Therapy Plan Reviewed Recertification Information Recertification Information Initial Certification Date 05/10/24
== END 2024-09-28 23:59 | disposition home or self-care (01) ==
PROVIDERS: PCP Family Medicine; Visit Provider Physician Assistant Surgical
DX: S52.502A Unspecified fracture of the lower end of left radius, initial encounter for closed fracture (principal); R53.1 Weakness; M25.632 Stiffness of left wrist, not elsewhere classified; Z51.89 Encounter for other specified aftercare
CPT/HCPCS: 97110; 97140; 97165; 97535; X5282

== ENCOUNTER 2025-01-13 12:50 | Emergency (ER) | payer MEDICARE, BC, SELFPAY ==
--- OUTSIDE RECORDS SUMMARY | 2025-01-13 12:52 | XMS_ITS | Clinical Summary ---
Author Organization [facility] Address [address] [place] [address] Care Team Providers Care Cardiac Monitor Name Role Phone Crista Baird DO Primary Care Provider [phone] Allergies Active Allergy Reactions Criticality Noted Date Comments Acetaminophen *Unknown Unknown 07/13/2022 Citalopram Anxiety Unknown 09/18/2016 [place] Diarrhea Unknown 02/15/2012 Egg Diarrhea 04/21/2023 Gelatin GI Upset Unknown 03/02/2018 Red Dye *Unknown Unknown 03/12/2022 Metoclopramide Hcl Anxiety Medium 05/15/2018 Medications Blood Pressure Monitor KitIndications: Elevated blood pressure reading without diagnosis of hypertension Frequency of testing: daily 1 Each 022 Active medication order composer Take 2 Tablets by mouth once daily. Natural Factors Methylcobalamin B12 1000 mcg/tablet Active levocetirizine (Xyzal) 5 mg tab tablet Take 5 mg by mouth two times daily. 0 023 Active levothyroxine (SYNTHROID) 88 mcg tabletIndicatio ns:Hypothyroidi sm, unspecified type Take 1 Tablet (88 mcg) by mouth before breakfast. 90 Tablet 2 024 Active LORazepam suspension 0.5 mg/mLIndication s:Benzodiazepin e dependence (HC) Take 1 mL by mouth three times daily. 90 mL 5 025 Active mirtazapine 15 mg tabletIndicatio ns:Anxiety with somatic features,Recurr ent major depressive disorder, in partial remission Take 1 Tablet (15 mg) by mouth at bedtime. 90 Tablet 1 025 Active FLUoxetine 20 mg tabletIndicatio ns:Anxiety with somatic features,Recurr ent major depressive disorder, in partial remission Take 2 Tablets (40 mg) by mouth once daily in the morning. 180 Tablet 1 025 Active losartan-hydroc hlorothiazide 100-25 mg tabletIndicatio ns:Primary hypertension TAKE 1 TABLET BY MOUTH DAILY 90 Tablet 025 Active losartan-hydroc hlorothiazide (HYZAAR) 100-25 mg tabletIndicatio ns:Primary hypertension Take 1 Tablet by mouth once daily. 90 Tablet 3 024 2024 Discontinued Active Problems Problem Noted Date Diagnosed Date Moderate episode of recurrent major depressive d isorder 01/12/2025 Erroneous Encounter--Disregard 02/16/2023 Chronic diarrhea 12/20/2022 Acquired hypothyroidism 12/20/2022 Illness anxiety disorder 12/20/2022 Major depression 12/20/2022 Overview (12/20/2022): moderate to severe Chronic hyponatremia 12/20/2022 Overview (12/20/2022): Dr La, [facility] [place], - baseline mild hyponatremia since 2017 that ranges from 131-136, normalized on fluid restriction (32 ounces per day roughly) without salt tabs. 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 Per chart: Met with an water meter mechanic in 2018. At that time Dr. Sanders [...] Kamryn Orlando Psychiatry Renal insufficiency 04/24/2017 05/17/20 17 Controlled substance agreement signed 12/10/2016 08/31/2018 Overview (12/10/2016): Signed: 05/04/16 Dr. Max Post MD / psychiatry C. difficile diarrhea 12/16/20122013 Encounters Date Type Department Care Team Description 01/13/2025 Nurse Triage [facility] [address] [place] [address] Crista Baird, DO Questions 01/12/2025 9:00 AM CDT Office Visit [facility] [address] [place] [address] Yin Jones PA Thyroid Problem 01/11/2025 2:00 PM CDT Procedure Only [facility] [address] [place] [address] Romana Julian, Maura Ac Acupuncture 01/11/2025 Travel 12/26/2024 8:30 AM CDT Procedure Only [facility] [address] [place] [address] Romana Julian, Maura Ac Acupuncture 12/26/2024 Travel 12/18/2024 Refill [facility] [address] [place] [address] Sir Bairdi Su, DO Refill Request (Losartan-hydrochloro thiazide) 11/27/2024 10:00 AM CDT Procedure Only [facility] [address] [place] [address] Romana Julian, Maura Ac Acupuncture 11/27/2024 Travel 11/20/2024 8:30 AM CDT Procedure Only [facility] [address] [place] [address] Romana Julian, Maura Ac Acupuncture 11/20/2024 Travel 11/14/2024 1:30 PM CDT Procedure Only [facility] [address] [place] [address] Romana Julian, Maura Ac Acupuncture 11/14/2024 Travel 11/10/2024 8:30 AM CDT Procedure Only [facility] [address] [place] [address] Romana Julian, Maura Ac Acupuncture 11/10/2024 Travel 11/07/2024 Refill [facility] [address] [place] [address] Sir Bairdi Su, DO Refill Request (Losartan) 10/25/2024 Telephone [facility] [address] [place] [address] Kamryn Orlando MD Prior Authorization (FLUoxetine 20 mg tablet APPROVED 07/28/24-10/26/25) 10/23/2024 Refill [facility] [address] [facility] [address] Kamryn Orlando MD Refill Request (Fluoxetine 20mg tablets) 10/19/2024 1:30 PM CDT Procedure Only [facility] [address] [facility] [address] Romana Julian L Ac Acupuncture 10/19/2024 8:45 AM CDT Telemedicine [facility] [address] [facility] [address] Kamryn Orlando MD Telehealth 10/19/2024 Travel 10/16/2024 1:00 PM CDT Procedure Only [facility] [address] [facility] [address] Romana Julian L Ac Acupuncture 10/16/2024 Travel from Last 3 Months Immunizations Immunization Administration Dates Next Due COVID-19 vaccine (Moderna 10 0mcg/0.5mL) PF MDV 08/29/2020 Influenza A (H1N1), Inactivated 08/07/2009 Influenza, IIV3 (Age >=3 years) 05/20/2012,05/04,04/23/2010 Tdap 05/30/2018,04/02/2008 Zoster (Zostavax-ZVL, live) 01/05/2012 Family History Medical History Relation Name Comments No Known Problems Brother Cancer Father jaw Leukemia Maternal Grandfather Cancer Mother Tierney thyroid Cancer-breast Mother Tierney Clotting disorder Mother Tierney ?unknown t ype, was on blood thinner after stroke Stroke Mother Tierney Heart Disease Paternal Grandfather Heart attack Paternal Grandmother Asthma Sister Chuck Thyroid Disease Sister Chuck hypothyroidi sm Anesthesia Malignant Hyperthermia No Family History Anesthesia Problem No Family History Relation Name Status Comments Brother Alive Father Alive Maternal Grandfather Mother Tierney Alive Paternal Grandfather Paternal Grandmother Sister Chuck Alive Social History Tobacco Use Types Packs/Day Years Used Date Smoking Tobacco: Never Smokeless Tobacco: Never Tobacco Cessation:Counseling Given: Yes Alcohol Use Standard Drinks/Week Comments No 0 (1 standard drink = 0.6 oz pur e alcohol) PHQ-2 Answer Date Recorded PHQ-2 TOTAL SCORE 0 10/19/2024 Social Connections Answer Date Recorded Do you often feel lonely or isolated from those around you? 0 03/21/2024 Financial Resource Strain Answer Date R ecorded Difficulty of Paying Living Expenses 3 03/21/2024 Difficulty of Paying Living Expenses Not on file 03/21/2024 Food Insecurity Answer Date Recorded Do you worry your food will run out before you are able to buy more? 1 03/21/2024 Transportation Needs Answer Date Record ed Does lack of transportation keep you from medica l appointments? 1 03/21/2024 Does lack of transportation keep you from work, meetings or getting things that you need? 1 03/21/2024 Housing Stability Answer Date Recorded What is your housing situation today? 1 03/21/2024 Utilities Answer Date Recorded Do you have trouble paying f or utilities (for example, heat, electricity, water, phone)? 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 Not on file Not on file Not on uzma e Not on file Not on file Not on file Not on file Obstetrics History Last Filed Vital Signs Vital Sign Reading Time Taken Comments Blood Pressure 133/82 01/12/2025 8:53 AM CDT Pulse 72 01/12/2025 8:53 AM CDT Temperature 36.7 C (98.1 F) 09/30/2023 10:22 AM CDT Respiratory Rate 17 12/24/2022 8:00 AM CDT Oxygen Saturation 94% 01/12/2025 8:53 AM CDT Inhaled Oxygen Concentration - - Weight 75.3 kg (166 lb 1.6 oz) 01/12/2025 8:53 A M CDT Height 165.1 cm (5' 5) 09/13/2023 9:00 AM CATTLE BRANDER Body Mass Index 27.64 09/13/2023 9:00 AM CATTLE BRANDER Plan of Treatment Upcoming Encounters Date Type Department Care Team (Late st Contact Info) Description 01/30/2025 3:00 PM CDT Office Visit [facility] [address] [place] [address] rCista Baird DO [address] [facility] [address] 01/31/2025 10:45 AM CDT Office Visit [facility] [address] [place] [address] Kamryn Orlando MD [address] [place] [address] 02/02/2025 10:30 AM CDT Procedure Only [facility] [address] [place] [address] Romana Julian L Ac [address] [place] [address] Health Maintenance Due Date Last Done Comments Pneumococcal series for age 50+ (1 of 1 - PCV) 11/07/2005 Zoster (shingles) series for age 50+ (2 of 3) 03/01/2012 01/05/2012 RSV vaccine for adults or (1 - Risk 60-74 years 1-dose series) 2015 Mammogram for age 45-75 07/28/2018 07/28/19 18, 03/19/2016, 11/21/2013, Additional history exists Medicare Wellness for age 65+ 07/01/2023 06/30/2022 COVID-19 vaccine series ( season) 2024 06/24/2021, 09/26/2020, 08/29/2020 BMI (ht and wt on same day) for age 18+ 09/13/2024 09/13/2023, 06/30/2022, 01/14/2022, Additional history exists Influenza Vaccine (Season Ended) 2025 05/20/2012, 05/04/2011, 04/23/2010 Depression screening for age 12+ 10/19/2025 10/19/2024, 10/19/2024, 08/11/2024, Additional history exists Colonoscopy through age 75 06/17/202606/17, 06/17/2016, 07/23/2006 Lipids for age 45-75 01/14/2027 01/14/2022, 08/08/2020, 03/16/2016, Additional history exists Tetanus booster 05/30/2028 05/30/2018, 04/02/2008 Hepatitis C screening for age 18-79 Completed 09/18/2016 Tdap Completed 05/30/2018, 04/02/2008 DEXA/DXA scan for age 65+ Completed 08/10/2022 Hepatitis B series for 19+ Aged Out N o longer eligible based on patient's age to complete this topic Procedures Procedure Name Priority Date/Time Associated Diagnosis Comments ACUPUNCTURE PLAN OF CARE Routine 01/12/2025 1:05 PM CDT Other low back pain T4,FREE Routine 01/12/2025 9:37 AM CDT CBC W PLT NO DIFF Routine 01/12/2025 9:3 7 AM CDT SOB (shortness of breath) Fatigue, unspecified type BASIC METABOLIC PANEL Routine 01/12/2025 9:37 AM CDT Fatigue, unspecified type VITAMIN D 25 (DEFICIENCY) Routine 01/12/2025 9:37 AM CDT Vitamin D deficiency TSH WITH REFLEX Routine 01/12/2025 9:37 AM CDT Hypothyroidism, unspecified type Weight gain Fatigue, unspecified type PRO-BNP Routine 01/12/2025 9:37 AM CDT SOB (shortness of breath) VITAMIN B12 Routine 01/12/2025 9:37 AM CDT Fatigue, unspecified type MAGNESIUM Routine 01/12/2025 9:37 AM CDT Fatigue, unspecified type D-DIMER,QUANTITATIV E Routine 01/12/2025 9:37 AM CDT SOB (shortness of breath) ACUPUNCTURE PLAN OF CARE Routine 01/11/2025 3:27 PM CDT Other low back pain ACUPUNCTURE PLAN OF CARE Routine 12/26/2024 8:19 AM CDT Other low back pain ACUPUNCTURE PLAN OF CARE Routine 11/28/2024 9:15 AM CDT Other low back pain ACUPUNCTURE PLAN OF CARE Routine 11/27/2024 9:59 AM CDT Other low back pain ACUPUNCTURE PLAN OF CARE Routine 11/20/2024 8:21 AM CDT Other low back pain ACUPUNCTURE PLAN OF CARE Routine 11/14/2024 1:13 PM CDT Other low back pain ACUPUNCTURE PLAN OF CARE Routine 11/10/2024 8:20 AM CDT Other low back pain ACUPUNCTURE PLAN OF CARE Routine 10/19/2024 1:15 PM CDT Other low back pain ACUPUNCTURE PLAN OF CARE Routine 10/16/2024 12:51 PM CDT Other low back pain XR DXA BONE DENSITY 2 SITES AXIAL Routine 08/10/2022 9:44 AM CATTLE BRANDER Postmenopausal LIPID PANEL W REFLEX MEASURED LDL Routine 01/14/2022 9:57 AM CDT Hyperlipidemia, unspecified hyperlipidemia type XR MAMMO BILAT SCREENING Routine 07/28/2017 8:52 AM CATTLE BRANDER Visit for screening mammogram ANTI HCV Routine 09/18/2016 12:32 PM CATTLE BRANDER Need for hepatitis C screening test COLONOSCOPY 06/17/2016 8:51 AM CATTLE BRANDER from Last 3 Months or Most Recently Relevant to Health Maintenance Results * (ABNORMAL) TSH WITH REFLEX (01/12/2025 9:37 AM CDT) TSH W/REFLEX TO FT4 5.97(H) 0.40 - 4.50 mIU/L [facility] Blood BLOOD SPECIMEN / Unknown 01/12/2025 9:37 AM CDT 01/12/2025 9:37 AM CDT Yin LEONARD CHEMISTRY Final Result [employer] [facility] [address] [place] [address], [facility] [address] [place] [address] * (ABNORMAL) VITAMIN D 25 (DEFICIENCY) (01/12/2025 9:37 AM CDT) VITAMIN D,25-OH,TOTAL,IA 18(L) 30 - 100 ng/mL [facility] Comment: Vitamin D Status 25-OH Vitamin D: Deficiency: <20 ng/mL Insufficiency: 20 - 29 ng/mL Optimal: > or = 30 ng/mL For 25-OH Vitamin D testing on patients on D2-supplementation and patients for whom quantitation of D2 and D3 fractions is required, the QuestAssureD(TM) 25-OH VIT D, (D2,D3), LC/MS/MS is recommended: order code 14706 (patients >2yrs). See Note 1 Note 1 For additional information, please refer to http://education.Busy Moos/faq/HSA025 (This link is being provided for informational/ educational purposes only.) Blood BLOOD SPECIMEN / Unknown 01/12/2025 9:37 AM CDT 01/12/2025 9:37 AM CDT Yin LEONARD SEND OUTS Final Result [employer] [facility] [address] [place] [address], [facility] [address] [place] [address] * (ABNORMAL) CBC W PLT NO DIFF (01/12/2025 9:37 AM CDT) WHITE BLOOD CELL COUNT 7.0 3.8 - 10.8 Thousand/u L [facility] RED BLOOD CELL COUNT 4.34 3.80 - 5.10 Million/uL [facility] HEMOGLOBIN 12.7 11.7 - 15.5 g/dL [facility] HEMATOCRIT 39.6 35.0 - 45.0 % [facility] MCV 91.2 80.0 - 100.0 fL [facility] MCH 29.3 27.0 - 33.0 pg [facility] MCHC 32.1 32.0 - 36.0 g/dL [facility] Comment: For adults, a slight decrease in the calculated MCHC value (in the range of 30 to 32 g/dL) is most likely not clinically significant; however, it should be interpreted with caution in correlation with other red cell parameters and the patient's clinical condition. RDW 12.7 11.0 - 15.0 % [facility] PLATELET COUNT 438(H) 140 - 400 Thousand/u L [facility] MPV 8.9 7.5 - 12.5 fL [facility] Blood BLOOD SPECIMEN / Unknown 01/12/2025 9:37 AM CDT 01/12/2025 9:37 AM CDT Yin LEONARD HEMATOLOGY Final Result [employer] [facility] [address] [place] [address], [facility] [address] [place] [address] * (ABNORMAL) D-DIMER,QUANTITATIVE (01/12/2025 9:37 AM CDT) Pathologist [facility] D-DIMER, QUANTITATIVE 0.94(H) <0.50 mcg/mL FEU [facility] Comment: Elevated D-dimer levels are associated with DIC, malignancies, inflammation, sepsis, surgery, trauma, and . A D-dimer result less than 0.5 mcg/mL FEU, in conjunction with a non-high clinical pre-test probability assessment model, excludes deep vein thrombosis and pulmonary embolism. However, since D-dimer values increase with age, the [employer] recommends an age-adjusted cut-off value in patients older than 50. The calculation for an age adjusted cut-off value is age (years) x 0.01 mcg/mL FEU. For example, the cut-off for a 70-year-old patient would be 70 x 0.01 mcg/mL FEU. For additional information, please refer to http://education.Busy Moos/faq/PVO846 (This link is being provided for informational/educational purposes only.) Blood BLOOD SPECIMEN / Unknown 01/12/2025 9:37 AM CDT 01/12/2025 9:37 AM CDT us Yin LEONARD HEMATOLOGY Final Result [facility] [address] [place] [address], [facility] [address] [place] [address] * T4,FREE (01/12/2025 9:37 AM CDT) T4, FREE 1.2 0.8 - 1.8 ng/dL [facility] 01/12/2025 9:37 AM CDT 01/12/2025 9:37 AM CDT us Yin LEONARD CHEMISTRY Final Result [facility] [address] [place] [address], [facility] [address] [place] [address] * PRO-BNP (01/12/2025 9:37 AM CDT) NT PROBNP 95 <125 pg/mL [facility] Blood BLOOD SPECIMEN / Unknown 01/12/2025 9:37 AM CDT 01/12/2025 9:37 AM CDT us Yin LEONARD SEND OUTS Final Result Performing Organization Address [facility]/ZIP Co de Phone Number [employer] [facility] [address] [place] [address], [place] [phone] [facility] [address] [facility] [place] [address] * MAGNESIUM (01/12/2025 9:37 AM CDT) Pathologist [facility] MAGNESIUM 1.7 1.5 - 2.5 mg/dL [facility] Blood BLOOD SPECIMEN / Unknown 01/12/2025 9:37 AM CDT 01/12/2025 9:37 AM CDT Yin LEONARD CHEMISTRY Final Result Performing Organization Address [facility]/ZIP Co de Phone Number [employer] [facility] [address] [place] [address], [facility] [address] [place] [address] * VITAMIN B12 (01/12/2025 9:37 AM CDT) [facility] VITAMIN B12 965 200 - 1,100 pg/mL [facility] Blood BLOOD SPECIMEN / Unknown 01/12/2025 9:37 AM CDT 01/12/2025 9:37 AM CDT Yin LEONARD CHEMISTRY Final Result [employer] [facility] [address] [place] [address], [place] [phone] [facility] [address] [place] [address] * (ABNORMAL) BASIC METABOLIC PANEL (01/12/2025 9:37 AM CDT) [facility] GLUCOSE 84 65 - 99 mg/dL [facility] Comment: Fasting reference interval UREA NITROGEN (BUN) 20 7 - 25 mg/dL [facility] CREATININE 0.83 0.50 - 1.05 mg/dL [facility] EGFR 76 > OR = 60 mL/min/1. 73m2 [facility] BUN/CREATININE RATIO SEE NOTE: 6 - 22 (calc) [facility] Comment: Not Reported: BUN and Creatinine are within reference range. SODIUM 133(L) 135 - 146 mmol/L [facility] POTASSIUM 4.3 3.5 - 5.3 mmol/L [facility] CHLORIDE 94(L) 98 - 110 mmol/L [facility] CARBON DIOXIDE 30 20 - 32 mmol/L [facility] ELECTROLYTE BALANCE 9 7 - 17 mmol/L (calc) [facility] CALCIUM 9.6 8.6 - 10.4 mg/dL [facility] Blood BLOOD SPECIMEN / Unknown 01/12/2025 9:37 AM CDT 01/12/2025 9:37 AM CDT Yin LEONARD CHEMISTRY Final Result [employer] [facility] [address] [place] [address], [facility] [address] [place] [address] * (ABNORMAL) XR DXA BONE DENSITY 2 SITES AXIAL (08/10/2022 9:44 AM CATTLE BRANDER) Anatomical Region Laterality Modality Spine, HIPS, HIPL, HIPR Other Impressions 08/12/2022 11:21 AM CATTLE BRANDER Osteoporosis. RECOMMENDATIONS: The National Osteoporosis Foundation recommends [...] to assess therapeutic efficacy. Joslyn Castle PA-C [facility] 08/12/2022 Narrative 08/12/2022 11:21 AM CATTLE BRANDER For Patients: Results are automatically released to your [email or web address] ([email or web address]) account once available, in compliance with federal regulations. This means that you may see your results before your provider has had a chance to review them. Please allow 2-3 business days for your provider to comment on the results. XR DXA Bone Mineral Density (BMD) EXAM [facility] [address] [facility] [address] PATIENT NAME: Blanquita Peterson DATE OF : 1955 EXAM DATE: 08/10/2022 REQUESTING PROVIDER: Crista Baird DO GENDER AT : female HEIGHT: 5' 4.96 (06/30/2022) WEIGHT: 116 lb (07/28/2022) MENOPAUSAL STATUS: Postmenopausal RACE/ETHNICITY: White [...] two scanners are made by the same dietary supervisor. PROCEDURE: Dual-energy x-ray absorptiometry performed with routine [...] 2.5 Z-Score: - 0.5 Change from prior: None RESULTS FEMUR Left femoral neck BMD: 0.827 g/cm2 T-Score: - 1.5 Z-Score: + 0.3 Change from prior: None Right femoral neck BMD: 0.793 g/cm2 T-Score: - 1.8 Z-Score: + 0.0 Change from prior: None Left hip BMD: 0.851 g/cm2 T-Score: - 1.2 Z-Score: + 0.3 Change from prior: None Right hip BMD: 0.843 g/cm2 T-Score: - 1.3 Z-Score: + 0.3 Change from prior: None WHO criteria: Normal: T-score at or above -1 SD Osteopenia: T-score between -1.1 and -2.4 SD Osteoporosis: T-score at or below -2.5 SD FRAX RISK CALCULATION (USED FOR OSTEOPENIA ONLY): 10-year probability of major osteoporotic fracture: 8.8%. 10-year probability of hip fracture: 1.3%. Crista Su Killianhollie DO DEXA Final Result * (ABNORMAL) LIPID PANEL W REFLEX MEASURED LDL (01/14/2022 9:57 AM CDT) [facility] CHOLESTEROL,TOTAL 294(H) 100 - 199 mg/dL 01/14/2022 5:52 PM CDT [facility] TRIGLYCERIDES 124 <150 mg/dL 01/14/2022 5:52 PM CDT [facility] HDL CHOLESTEROL 77 >40 mg/dL 5:52 PM CDT [facility] NON-HDL CHOLESTEROL 217(H) <145 mg/dl 01/14/2022 5:52 PM CDT [facility] CHOL/HDL RATIO 3.82 <4.50 01/14/2022 5:52 PM CDT [facility] LDL CHOLESTEROL 192(H) <=130 mg/dL 01/14/2022 5:52 PM CDT [facility] VLDL CHOLESTEROL 25 <=30 mg/dL 01/14/2022 5:52 PM CDT [facility] PROVIDER ORDERED STATUS RANDOM 01/14/2022 5:52 PM CDT [facility] Blood BLOOD SPECIMEN / Unknown Venipuncture / Unknown 01/14/2022 9:57 AM CDT 01/14/2022 9:57 AM CDT Yanique LEONARD CHEMISTRY Final Result [facility] [address] [place] [address], [place] * XR MAMMO BILAT SCREENING (07/28/2017 8:52 AM CATTLE BRANDER) Anatomical Region Laterality Modality BREASTS, Breast Left, Breast Right Bilateral Mammography Impressions 07/28/2017 12:20 PM CATTLE BRANDER There is no radiographic evidence for malignancy. Recommend annual mammograms. A lay language report of this examination will be provided to the patient. MAMMOGRAM ASSESSMENT: ACR 2 Benign Narrative 07/28/2017 12:20 PM CATTLE BRANDER XR MAMMO BILAT SCREENING [[id number]] CLINICAL HISTORY: This is an asymptomatic 61 y.o. patient. INDICATION FOR EXAM: Mammogram Screening. TECHNIQUE: CC & MLO views were obtained. This digital study was evaluated with the assistance of Computer-Aided Detection. COMPARISON FILMS: Yes 03/19/16 [facility] 11/21/13 [facility] FINDINGS: Mammographically, the breast tissue is extremely dense. This may lower the sensitivity of mammography. No suspicious masses or microcalcifications. Benign appearing calcifications within both breasts and Benign appearing asymmetry within left breast. Max Post MD MAMMO Final Res ult * ANTI HCV (09/18/2016 12:32 PM CATTLE BRANDER) HEPATITIS C ANTIBODY Non-Reacti ve Non-Reacti ve 09/18/2016 4:20 PM CATTLE BRANDER [facility] Blood BLOOD SPECIMEN / Unknown Venipuncture / Unknown 09/18/2016 12:32 PM CATTLE BRANDER 09/18/2016 12:32 PM CATTLE BRANDER Narrative [facility] - 09/18/2016 4:20 PM CATTLE BRANDER Antibodies to HCV not detected; does not exclude the possibility of exposure to HCV. Lowell Gil MD SEND OUTS Final Result [facility] [address] [place] [address], * COLONOSCOPY (06/17/2016 8:51 AM CATTLE BRANDER) 06/17/2016 8:51 AM CATTLE BRANDER Narrative Transcriptions Omid Narvaez MD - 06/17/2016 9:58 AM CST Patient Name: Blanquita Peterson Procedure Date: 06/17/2016 Gender: Female Date of : 1955 Admit Type: Outpatient Procedure: Colonoscopy Proceduralist: mOid Narvaez MD Indications/Pre-Op Diagnosis: Last colonoscopy 10 years ago, Chronicdiarrhea Medications: Fentanyl 200 micrograms IV, Midazolam 4 mgIV, The level of sedation administered wasmoderate Procedure Description: The patient had risks, benefits and alternatives explained to andgave informed consent. The patient had a stable cardiopulmonary status and judged an adequate candidate for conscious sedation. The [id number] was passed through the anus and advanced [...] 8:51 AM Procedure Code(s): --- Professional --- 43161, Colonoscopy, flexible; with biopsy, single or multiple Diagnosis Code(s): --- Professional --- K52.9, Noninfective gastroenteritis and colitis, unspecified CPT copyright 2015 [employer]. All rights reserved. The codes documented in this report are preliminary and upon coupling machine operator reviewmay be revised to meet current compliance requirements. Scope In: 9:30:47 AM Scope Withdrawal Time 0 hours 9 minutes 41 seconds Scope Out: 9:51:24 AM Omid Narvaez MD PROCEDURE ORD Final Res ult from Last 3 Months or Most Recently Relevant to Health Maintenance Insurance [place] BLUE MR PB ONLY MEDICARE PART A HB ONLY [place] BLUE HB ONLY MEDICARE PART B HB ONLY [place] [id number] Advance Directives * Full Code (Latest Code Status on File) Date Activated Date Inactivated Comments 12/19/2022 8:28 PM 12/24/2022 4:16 PM Question Answer Comments Code Status Discussion: Other Care Teams Cardiac Monitor Relationship Specialty Start Date End Date Crista Baird DO [address] [place] [address] PCP - General Family Practice 04/08/22
[2025-01-13 12:54] VITALS: BP 158/84; PULSE 87; RESP 16; TEMP 37.2; O2SAT 96; BMI 27.6
--- NOTE | 2025-01-13 13:09 | CRLHL7_ITS ---
For Patients: As a result of the 21st Century Cures Act, medical imaging exams and procedure reports are released immediately into your electronic medical record. You may view this report before your referring provider. If you have questions, please contact your health care provider. INDICATION: Shortness of breath, fatigue, elevated D-dimer. TECHNIQUE: CT chest angiogram acquired with 95 cc Isovue 370 IV contrast according to the PE protocol. Coronal and sagittal reconstructions. 3D MIPS post-processing was performed. COMPARISON: CT chest 11/02/2023. FINDINGS: Cardiovascular structures: Normal heart size. Normal caliber thoracic aorta and central pulmonary arteries. No acute pulmonary embolism identified. Mediastinum and edson: No pathologically enlarged lymph nodes. No pericardial effusion. Lungs and pleura: No focal consolidation, pleural effusion, or pneumothorax. No significant bronchial wall thickening. Mild bibasilar dependent atelectasis. Stable 3 mm noncalcified pulmonary nodule in the lateral left lower lobe (series 5, image 130). Chest wall: Stable mildly prominent bilateral axillary lymph nodes. Upper abdomen: Small hiatal hernia. Remainder unremarkable. Bones: Unremarkable for age. IMPRESSION: 1. Negative for acute pulmonary embolism. No other acute findings in chest. 2. 3 mm noncalcified pulmonary nodule in the left lower lobe. Please see follow-up guidelines below. [employer] GUIDELINES - SOLID NODULES: : SINGLE LOW RISK - nodule less than 6 mm: No routine follow-up. - nodule 6-8 mm: CT at 6-12 months, then consider CT at 18-24 months. - nodule greater than 8 mm: Consider CT at 3 months, PET/CT or tissue sampling. SINGLE HIGH RISK - nodule less than 6 mm: Optional CT at 12 months. - nodule 6-8 mm: CT at 6-12 months, then CT at 18-24 months. - nodule greater than 8 mm: Consider CT at 3 months, PET/CT or tissue sampling. Please note that all CT scans at this facility use dose modulation, iterative reconstruction, and/or weight-based dosing when appropriate to reduce radiation dose to as low as reasonably achievable. Dictated by Lea Boateng MD @ 01/13/2025 3:21:18 PM (Electronically Signed)
--- NOTE | 2025-01-13 13:14 | ED.GENADULT ---
HPI - General Adult General Chief complaint: Unspecified Complaint, Adult Stated complaint: advised to be checked for embolism Time Seen by Provider: 01/13/25 13:04 History of Present Illness HPI narrative: Patient is a 69-year-old woman who went [facility] the doctor [facility] not feeling well with general malaise fatigue. Provider checked a D-dimer in a did come back at 0.92. Patient looked upper results this morning and although she has not been contacted proceeded the emergency room to rule out pulmonary embolism. Patient has no respiratory symptoms no fevers no chills no night sweats no cough no shortness of breath. She does have hypothyroidism and her thyroid by report was in the normal range. Patient is very concerned that she may be having a major issue but did is on room air ambulatory with normal vital signs the exception of elevated blood pressure. Related Data Home Medications ?Medication ?Instructions ?Recorded ?Confirmed diphenhydramine HCl 25 mg tablet 25 mg PO QID PRN 03/12/22 01/13/25 (Allergy (diphenhydramine)) lorazepam 0.5 mg tablet 0.5 mg PO TID PRN 03/12/22 01/13/25 ibuprofen 200 mg tablet (Advil) 400 mg PO .Q4-QH PRN 03/26/22 01/13/25 levocetirizine 5 mg tablet (24HR 5 mg PO BID 03/26/22 01/13/25 Allergy Relief) fluoxetine 20 mg tablet mg PO 11/01/23 06/09/24 mirtazapine 15 mg tablet 15 mg PO BID PRN anxiety 11/01/23 01/13/25 levothyroxine 88 mcg tablet 88 mcg PO DAILY 04/14/24 01/13/25 losartan 100 1 tab PO DAILY 04/14/24 01/13/25 mg-hydrochlorothiazide 25 mg tablet Allergies Allergy/AdvReac Type Severity Reaction Status Date / Time corn AdvReac Severe Verified 01/13/25 14:20 gelatin AdvReac Mild GI upset- Verified 01/13/25 14:20 gelatin capsules acetaminophen (From Tylenol) AdvReac Unknown Verified 01/13/25 14:20 Review of Systems Status of ROS: Reports: 10 or more systems reviewed and unremarkable except as noted in History and below 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 - Mast cell activation, unspecified (ICD-10) Benzodiazepine dependence ?F13.20 - Sedative, hypnotic or anxiolytic dependence, uncomplicated (ICD-10) Protein calorie malnutrition ?E46 - Unspecified protein-calorie malnutrition (ICD-10) Normal colonoscopy Dysthymic disorder ?F34.1 - Dysthymic disorder (ICD-10) Hyperlipidemia ?E78.5 - Hyperlipidemia, unspecified (ICD-10) Menopausal symptoms ?N95.1 - Menopausal and female climacteric states (ICD-10) Ganglion cyst ?M67.40 - Ganglion, unspecified site (ICD-10) History of migraine ?Z86.69 - Personal history of other diseases of the nervous system and sense organs (ICD-10) Functional diarrhea ?K59.1 - Functional diarrhea (ICD-10) Depression ?F32.A - Depression, unspecified (ICD-10) Chronic pain ?G89.29 - Other chronic pain (ICD-10) History of Clostridioides difficile infection (2012) ?Z86.19 - Personal history of other infectious and parasitic diseases (ICD-10) Seasonal allergies ?J30.2 - Other seasonal allergic rhinitis (ICD-10) Hypothyroidism ?E03.9 - Hypothyroidism, unspecified (ICD-10) Pelvic floor dysfunction ?M62.89 - Other specified disorders of muscle (ICD-10) Anxiety ?F41.9 - Anxiety disorder, unspecified (ICD-10) Surgical History History of vaginal hysterectomy (05/2005) ?Z90.710 - Acquired absence of both cervix and uterus (ICD-10) History of carpal tunnel surgery of left wrist (04/23/09) ?Z98.890 - Other specified postprocedural states (ICD-10) History of hernia repair (06/07/18) ?Z98.890 - Other specified postprocedural states (ICD-10) ?Z87.19 - Personal history of other diseases of the digestive system (ICD-10) Family History Sister Asthma Hypothyroidism Father Jaw cancer Mother Thyroid cancer Breast cancer Stroke Grandfather Coronary artery disease Grandmother Myocardial infarction Grandfather Leukemia Social History (Reviewed 06/09/24 @ 08:25 by Elsa Aly ~ [facility], [facility]) Narrative: . was here with her earlier. Denies tobacco, EtOH, or recreational drug use. FULL CODE. Highest level of school completed/degree received: Bachelor's degree Smoking Status: Never smoker Do you use any of these nicotine containing products: None Second hand tobacco smoke exposure: No How often do you have a drink containing alcohol: never How often do you have six or more drinks on one occasion: Never AUDIT-C Alcohol total score: 0 Non-prescribed substance use: denies use Caffeine: Yes (1 cup coffee daily) service: No Exam Narrative: Exam Narrative: EXAM GENERAL: Patient appears comfortable and well. EYES: No scleral icterus. LYMPH: No supraclavicular or cervical lymphadenopathy. SKIN: Visible skin seen during exam normal or with benign process only. EXT: No dependent lower extremity pedal edema. HEART: Regular rate and rhythm with no murmurs, rubs, or gallops. LUNGS: Clear to auscultation bilaterally with no crackles or wheezes. ABD: Soft, non tender, non distended. PSYCH: Good eye contact, speech is not pressured. Const: Vital Signs, click to edit/add: Vital Signs - 24 hr 01/13/25 12:54 Temperature 98.9 F Pulse Rate [Right Pulse Oximeter] 87 Respiratory Rate 16 Blood Pressure [Ri ght Upper Arm] 158/84 H Pulse Oximetry 96 Oxygen Delivery Me thod Room Air Course Course ED Course: Patient seen and examined. CT of the chest PE protocol pending. Vital Signs Vital signs: Initial Vital Signs Temperature 98.9 F 01/13/25 12:54 Temperature Source Temporal Artery Scan 01/13/25 12:54 Pulse Rate 87 01/13/25 12:54 Pulse Rhythm Regular 01/13/25 12:54 Pulse Strength 3+ Normal 01/13/25 12:54 Respiratory Rate 16 01/13/25 12:54 Blood Pressure 158/84 H 01/13/25 12:54 Blood Pressure Mean 108 H 01/13/25 12:54 Blood Pressure Position Sitting 01/13/25 12:54 Pulse Oximetry 96 01/13/25 12:54 Oxygen Delivery Method Room Air 01/13/25 12:54 Vital Signs Temperature 98.9 F 01/13/25 12:54 Pulse Rate 87 01/13/25 12:54 Respiratory Rate 16 01/13/25 12:54 Blood Pressure 158/84 H 01/13/25 12:54 Pulse Oximetry 96 01/13/25 12:54 Oxygen Delivery Method Room Air 01/13/25 12:54 Temperature 98.9 F 01/13/25 12:54 Pulse Rate 87 01/13/25 12:54 Respiratory Rate 16 01/13/25 12:54 Blood Pressure 158/84 H 01/13/25 12:54 Pulse Oximetry 96 01/13/25 12:54 Oxygen Delivery Method Room Air 01/13/25 12:54 Medical Decision Making MDM Narrative Medical decision making narrative: Patient presents with malaise that was workup partially yesterday in the [facility]. She has a D-dimer of 0.92. She has really no respiratory symptoms but is concerned by her elevated D-dimer is requesting a CT of the chest which I think is reasonable. CT of the chest is negative for acute trouble embolism. No other acute abnormalities. Patient otherwise feels well and is at this time discharged home with outpatient follow-up on a p.r.n. basis. Lab Data Labs: Lab Results 01/13/25 Range/Units 13:38 Creatinine 0.8 (0.5-1.5) mg/dL Estimated Creat Clear 47.78 Estimated GFR 80 ml/min Discharge Plan Discharge Clinical Impression: Weakness Patient Disposition: Home, Self-Care Condition: Stable Additional Instructions: Continue current care Follow-up with your doctor on a as needed basis. No change to treatment. Activity Level: No Restrictions Discharge Diet: Regular Prescriptions: No Action levothyroxine 88 mcg tablet 88 mcg PO DAILY losartan-hydrochlorothiazide 100-25 mg tablet 1 tab PO DAILY diphenhydramine HCl [Allergy (diphenhydramine)] 25 mg tablet 25 mg PO QID PRN lorazepam 0.5 mg tablet 0.5 mg PO TID PRN Patient Comments: TAKE ONE TABLET BY MOUTH (0.5MG) BY MOUTH 3 TIMES DAILY IF NEEDED FOR ANXIETY. ibuprofen [Advil] 200 mg tablet 400 mg PO .Q4-QH PRN levocetirizine [24HR Allergy Relief] 5 mg tablet 5 mg PO BID fluoxetine 20 mg tablet PO mirtazapine 15 mg tablet 15 mg PO BID PRN (Reason: anxiety) Follow Up/Referrals: Crista Baird DO [Primary Care Provider, Family Practice] Stand Alone Forms: Complex Media Info Instructions
[2025-01-13 14:01] LABS: Creatinine* 0.8 mg/dL (0.5-1.5); Est. Creatinine Clearance* 47.78; Estimated Glomerular Filt Rate 80 ml/min
[2025-01-13 15:15] VITALS: BP 167/87; PULSE 85; RESP 16; O2SAT 95
== END 2025-01-13 16:21 | disposition home or self-care (01) ==
PROVIDERS: Emergency Provider Internal Medicine; PCP Family Medicine
DX: R53.1 Weakness (principal)
CPT/HCPCS: 36415; 71275; 82565; 99283; 99284; Q9967